=== PATIENT | female | born 1950 | race Caucasian/White ===

== ENCOUNTER 2019-01-30 13:24 | Outpatient (CLI) | payer MEDICARE, SELFPAY ==
--- NOTE | ~2019-01-30 | XR_ITS ---
EXAMINATION: XR hip RT 2V w AP pelvis INDICATION: Right hip and groin pain TECHNIQUE: AP view of the pelvis and three views of the right hip are obtained. COMPARISON: 09/25/2003 FINDINGS: Bone alignment is normal. There is no fracture. Moderate bilateral hip osteoarthritis is pr esent. The soft tissues are unremarkable. Changes of fusion procedure are noted in the lower lumbar s pine. IMPRESSION: 1. Moderate hip osteoarthritis without acute findings. Reviewed, dictated and finalized at location B. CAL SUPPLY TECHNICIAN
== END 2019-01-30 13:25 | disposition home or self-care (01) ==
LOC: ANHIMG 13:42
PROVIDERS: PCP Internal Medicine; Visit Provider Orthopaedic Surgery
DX: M16.11 Unilateral primary osteoarthritis, right hip (principal)
CPT/HCPCS: 73502; 73521

== ENCOUNTER 2019-06-30 10:19 | Outpatient (CLI) | payer MEDICARE, SELFPAY ==
--- NOTE | ~2019-06-30 | XR_ITS ---
EXAMINATION: XR lg joint inject/asp w image DATE: 06/30/2019 11:07 INDICATION: Unilateral primary osteoarthritis of the right hip presenting with right hip pain TECHNIQUE: A time-out was performed to verify the patient's name, date of , and procedure to b e performed. The procedure including the risks, benefits, and alternatives was discussed with the pat ient. Risks discussed included bleeding and infection. The patient understood the risks and agreed to proceed. The skin overlying the right hip joint was prepped and draped in usual sterile fashion. A nesthetic was administered with 1% lidocaine subcutaneously. A 22 G needle was advanced under fluoro scopic guidance into the joint. Injection of 1 mL of Omnipaque 240 confirmed intra-articular positio n of the needle. Subsequently, injectate consisting of 7 mL of a 5:2 mixture of 1% lidocaine:10 mg/m L Kenalog for a total dose of 20 mg Kenalog was instilled. Washout of contrast was seen confirming in tra-articular administration. The needle was removed and the entry site was cleaned and dressed. The re were no immediate complications. Fluoroscopy exposure time was 0.1 minutes. The total number of im ages was 2. FINDINGS: Real-time fluoroscopy demonstrates the needle in the right hip joint. Patient's pain prior to procedure:0/10. Patient's pain following the procedure: 0/10. IMPRESSION: 1. Successful right hip joint injection of local anesthetic and steroid. Reviewed, dictated and finalized at location A.
== END 2019-06-30 10:20 | disposition home or self-care (01) ==
LOC: ANHIMG 10:22
PROVIDERS: PCP Internal Medicine; Visit Provider Orthopaedic Surgery
DX: M16.11 Unilateral primary osteoarthritis, right hip (principal); M25.551 Pain in right hip
CPT/HCPCS: 20610; 77002; J3301; Q9966

== ENCOUNTER 2019-11-14 09:52 | Outpatient (CLI) | payer MEDICARE, SELFPAY ==
[2019-11-15 14:26] LABS: SARS-CoV-2 RNA PCR Positive
== END 2019-11-14 09:53 | disposition home or self-care (01) ==
LOC: CHSLAB 09:55
PROVIDERS: PCP Internal Medicine; Visit Provider Internal Medicine
DX: U07.1 COVID-19 (principal)
CPT/HCPCS: 87635; C9803; U0003

== ENCOUNTER 2020-01-31 13:14 | Outpatient (CLI) | payer MEDICARE, SELFPAY ==
--- NOTE | ~2020-01-31 | MM_ITS ---
EXAMINATION: MM screening [facility] BI w marcus HISTORY: Screening TECHNIQUE: Craniocaudal and mediolateral oblique 3-D tomosynthesis images were obtained and synthetic 2-D images were generated. CAD analysis was submitted and interpreted. COMPARISON: Comparison to multiple prior studies sequentially, with oldest reviewed study dated 12/08. BREAST PARENCHYMAL COMPOSITION: There are scattered areas of fibroglandular density. FINDINGS: There is no evidence of suspicious mass, calcification, or architectural distortion to sugg est malignancy in either breast. There has been no suspicious interval change. IMPRESSION: 1. No mammographic evidence of malignancy. 2. Recommend routine screening mammography in one year. BI-RADS Category 1: Negative Reviewed, dictated and finalized at location A. NSED OPTICIAN
== END 2020-01-31 13:15 | disposition home or self-care (01) ==
LOC: ANHIMG 13:16
PROVIDERS: PCP Internal Medicine; Visit Provider Obstetrics & Gynecology
DX: Z12.31 Encounter for screening mammogram for malignant neoplasm of breast (principal)
CPT/HCPCS: 77063; 77067

== ENCOUNTER 2021-01-31 11:09 | Outpatient (CLI) | payer MEDICARE, SELFPAY ==
--- NOTE | ~2021-01-31 | MM_ITS ---
EXAMINATION: MM screening [facility] BI w marcus HISTORY: Screening mammogram TECHNIQUE: Craniocaudal and mediolateral oblique 3-D tomosynthesis images were obtained and synthetic 2-D images were generated. CAD analysis was submitted and interpreted. COMPARISON: 01/31/2020, 01/16/2019, 01/13/2018 bilateral screening mammogram examinations BREAST PARENCHYMAL COMPOSITION: There are scattered areas of fibroglandular density. FINDINGS: There is no evidence of suspicious mass, calcification, or architectural distortion to sugg est malignancy in either breast. There has been no suspicious interval change. IMPRESSION: 1. No mammographic evidence of malignancy. 2. Recommend routine screening mammography in one year. BI-RADS Category 1: Negative Reviewed, dictated and finalized at location A. ATIONS TEAM LEADER
== END 2021-01-31 11:10 | disposition home or self-care (01) ==
LOC: ANHIMG 11:10
PROVIDERS: PCP Internal Medicine; Visit Provider Obstetrics & Gynecology
DX: Z12.31 Encounter for screening mammogram for malignant neoplasm of breast (principal)
CPT/HCPCS: 77063; 77067

== ENCOUNTER 2021-06-24 15:50 | Outpatient (RCR) | payer MEDICARE, SELFPAY ==
--- NOTE | 2021-06-26 09:27 | PTOPEVAL ---
Thank you for referring Sheridan King to [facility].? The patient is scheduled to be seen for therapy? ____x/week for ___ weeks. Please review, sign, date and return this plan of care JOYCE. I agree with and certify that the following plan of care is medically necessary. Referring Physician Date Admitting Provider: Attending Provider: Roxanna Villaseñor Referring Provider: GRACIELA Outpatient Evaluation Start: 06/24/21 16:00 Freq: Status: Active Protocol: Document 06/24/21 16:00 [facility] (Rec: 06/24/21 16:21 [facility] [id number]) Therapy Assessment Status Assessment Status Assessment Status Evaluation Evaluation Information Problem Diagnosis R hip pain, groin pain, s/p R JIMMIE Onset 05/06/21 Additional Evaluation Detail LEFS = 8% functionally declined Subjective Information patient report she had a R JIMMIE Query Text:As Reported By Patient/ back in 2019. she reports she Family has new hip pain in the groin for about 1 month. she reports no change or new activity. she reports the pain has been less since starting to take tylenol arthritis. she reports she has been having pain in the groin of the R hip with lifting the leg up into flexion. she reports this affects her getting in and out of car, bed, and with steps. Prior Level of Function Comments Additional Prior Level of Function prior to may, no pain or Comments issues since her JIMMIE. Pain Assessment Timing of Pain Assessment Timing of Pain Assessment Assessment Pain Scale Pain Scale Used Numeric (1 - 10) Self Report Pain Assessment Right Groin Reported Pain Level 0 Greatest Pain Intensity 3 Pain Score Pain Score 0: Self Report Interventions Used Interventions Used By Clinicians Activity or ADL's,Education, Exercise,Rest Lower Extremity Range of Motion General Lower Extremity Range of Motion Gross Lower Extremity Range of Motion WFL bilateral hip mobility Comments Lower Extremity Muscle Strength Testing General Lower Extremity Strength Gross Lower Extremity Strength 4+/5 L rectus 4+/5 L sartorius 4/5 R rectus 3+/5 R sartorius 4+/5 R hip abd 4/5 L hip abd 5/5 bilateral
== END 2021-06-26 09:37 | disposition home or self-care (01) ==
LOC: CHSPT 15:50
DX: M25.551 Pain in right hip (principal); M76.891 Other specified enthesopathies of right lower limb, excluding foot
CPT/HCPCS: 97014; 97110; 97140; 97161; G0283

== ENCOUNTER 2022-02-02 14:15 | Outpatient (CLI) | payer MEDICARE, SELFPAY ==
--- NOTE | ~2022-02-02 | MM_ITS ---
EXAMINATION: MM screening [facility] BI w marcus HISTORY: Screening mammogram TECHNIQUE: Craniocaudal and mediolateral oblique 3-D tomosynthesis images were obtained and synthetic 2-D images were generated. CAD analysis was submitted and interpreted. COMPARISON: 01/31/2021, 01/31/2020, 01/16/2019 BREAST PARENCHYMAL COMPOSITION: There are scattered areas of fibroglandular density. FINDINGS: No suspicious mass, calcification, or architectural distortion are identified in either chanel ast to suggest malignancy. There has been no suspicious interval change. IMPRESSION: 1. No mammographic evidence of malignancy. 2. Recommend routine screening mammography in one year. BI-RADS Category 1: Negative Reviewed, dictated and finalized at location A. L MARKETING INTERN
== END 2022-02-02 14:16 | disposition home or self-care (01) ==
PROVIDERS: PCP Internal Medicine; Visit Provider Obstetrics & Gynecology
DX: Z12.31 Encounter for screening mammogram for malignant neoplasm of breast (principal)
CPT/HCPCS: 77063; 77067

== ENCOUNTER 2022-02-25 08:32 | Outpatient (CLI) | payer MEDICARE, SELFPAY ==
--- NOTE | ~2022-02-25 | MR_ITS ---
MRI of the brain Clinical History: Dementia Technique: Axial and sagittal T1-weighted images were acquired. These were followed by axial T2-weigh gordon, diffusion weighted, gradient, and FLAIR images. Findings: There is no acute infarct, intracranial hemorrhage, or mass lesion. There are mild chronic white matter changes in the periventricular white matter bilaterally. Ventricles and subarachnoid spaces are unremarkable. Orbits are unremarkable. Paranasal sinuses and m astoid air cells are clear. Major intracranial flow voids are grossly intact. Sagittal midline structures are intact. IMPRESSION: No intracranial hemorrhage, infarct, or mass lesion. Mild chronic white matter changes, likely mild chronic microvascular ischemic change. Reviewed, dictated and finalized at location M. C PROMOTER IMPRESSION: No intracranial hemorrhage, infarct, or mass lesion. Mild chronic white matter changes, likely mild chronic microvascular ischemic c sofi.
== END 2022-02-25 08:33 | disposition home or self-care (01) ==
PROVIDERS: PCP Internal Medicine; Visit Provider Student in an Organized Health Care Education/Training Program
DX: R41.3 Other amnesia (principal); R93.0 Abnormal findings on diagnostic imaging of skull and head, not elsewhere classified
CPT/HCPCS: 70551

== ENCOUNTER 2022-06-06 20:09 | Emergency (ER) | payer MEDICARE, SELFPAY ==
[2022-06-06 20:13] VITALS: BP 104/66; PULSE 65; RESP 18; TEMP 36.6; O2SAT 97
--- NOTE | 2022-06-06 20:47 | ED.GENADULT ---
HPI - General Adult General Chief complaint: Dental/Oral Stated complaint: dental abscess Time Seen by Provider: 06/06/22 20:25 History of Present Illness HPI narrative: 72 old female presenting for evaluation of a dental abscess associated with her left lateral upper gums. Patient did have follow-up with a dentist in [place] on Wednesday and had an abscess that was packed. Patient states since then she has developed some swelling on the gum that she was concerned about for abscess. Patient is currently not on any antibiotics. Patient does have allergies to Nasonex. Patient reports that she has had some increased pain at the gums and a strange sensation in her cheek. No appreciable facial swelling noted. Patient denies any difficulty breathing or swallowing. No change in voice. No submandibular swelling. Related Data Home Medications Medication Instructions Recorded Confirmed black cohosh 540 mg capsule mg PO PRN 02/09/19 08/16/21 cholecalciferol (vitamin D3) 50 2,000 unit PO DAILY 02/09/19 08/16/21 mcg/drop (2,000 unit/drop) oral drops ywsmrufr-ver-mdfwkj 5 mg-zeaxanth cap PO 03/23/19 08/16/21 1 mg-bilberry 7.5 mg-herbal capsule ([employer] Health Formula) bqvzkruh-tjv-rpjhua 5 mg-zeaxanth cap PO 02/18/22 1 mg-bilberry 7.5 mg-herbal capsule ([employer] Health Formula) potassium gluconate 600 mg (99 mg) 600 mg PO DAILY 02/18/22 tablet Allergies Allergy/AdvReac Type Severity Reaction Status Date / Time mercury (elemental) Allergy Mild Unknown Verified 06/06/22 20:10 mometasone furoate Allergy Mild Unknown Verified 06/06/22 20:10 Review of Systems Review of Systems: All systems reviewed & are unremarkable except as noted in HPI and below PMFSH Past Medical History Medical History Cataract History of broken nose (~2018) Right thyroid nodule Torn tendon (~2008) left leg 2009 Surgical History Surgical History H/O bladder repair surgery (~2002) H/O foot surgery (~1997) H/O tubal ligation (~1977) History of appendectomy (~1965) History of cholecystectomy (~2007) History of hip replacement, total History of lumbar fusion (~2018) Hx of tonsillectomy (~1961) Family History Family History Sibling Family history of arthritis Family history of lymphoma Mother Patient's mother is Father Patient's father is Social History Social History (Updated 02/18/22 @ 13:21 by Radha Erickson MA) Smoking status: Never smoker Second hand tobacco smoke exposure: No Alcohol intake: current Alcohol use details: occassionally Substance use: never Lack of Transportation: No Lack of Food: Never True Current Housing: I Have Housing Concerned About Future Housing: No Difficulty Paying Gas/Electric Bills: No Difficulty Paying for Meds: No Currently Unemployed: No Education: High School Diploma/GED Difficulty w/ Childcare or Family Care: No Exam Narrative: APPEARANCE: Well appearing, no pain, no distress, well-nourished. HEAD: normocephalic, atraumatic. EYES: PERRLA/EOMI, conjunctivae clear. NOSE: Normal no drainage Mouth: Abscess on gums associated with the upper left lateral gums THROAT: Pharynx clear, no exudate. NECK: Supple. No adenopathy, no masses. RESPIRATORY: Airway patent, respirations nonlabored. Clear to auscultation bilaterally, no rales, rhonchi, wheezing. CARDIOVASCULAR: Regular rate and rhythm without murmurs rubs or gallops. ABDOMINAL: Soft, nontender, nondistended, normal bowel sounds MUSCULOSKELETAL: Moves all extremities. Strength/ROM intact, No edema, No calf tenderness. NEURO: Alert. Cranial nerves II through XII intact. Grossly intact SKIN: Warm, dry. Normal Color Course Course Emergency Course: 68-year-old female presenting for evaluation of a
[2022-06-06] MEDS: AMOXICILLIN/CLAVULANATE K 875-125 MG TAB 1 TABLET PO (20:53)
== END 2022-06-06 22:01 | disposition home or self-care (01) ==
PROVIDERS: Emergency Provider Emergency Medicine; PCP Internal Medicine
DX: K04.7 Periapical abscess without sinus (principal)
CPT/HCPCS: 41800; 99283; A9270

== ENCOUNTER 2023-01-21 01:55 | Day surgery (SDC) | payer MEDICARE, SELFPAY ==
[2023-01-12 08:47] VITALS: BMI 31.8
--- NOTE | 2023-01-19 10:29 | SUR.PREOP ---
Patient called regarding upcoming procedure. Reviewed preop instructions, appointment times, and procedure prep.
[2023-01-21] MEDS: LACTATED RINGERS 1,000 ML 150 ML IV CONT (10:29)
[2023-01-21 10:36] VITALS: BP 153/62; PULSE 68; RESP 16; TEMP 36.5; O2SAT 99
--- NOTE | 2023-01-21 10:42 | WPDANESEPPF ---
Anes - Initial Pre Proc Eval Procedure: Operation Date: 01/21/23 11:30 Proposed Procedures p Colonoscopy - Christo Magdaleno MD Date/Time: 01/21/23 10:42 Surgeon: Christo Magdaleno MD Pre Op Diagnosis: hx of colon polyps, rectal bleeding Patient Data Age: 72 Gender: F Height: 1.63 m Weight: 83.1 kg Last Vital Signs Temp 97.7 F 01/21/23 10:36 Pulse 68 01/21/23 10:36 Resp 16 01/21/23 10:36 BP 153/62 H 01/21/23 10:36 Pulse Ox 99 01/21/23 10:36 O2 Del Method Room Air 01/21/23 10:36 Allergies Allergy/AdvReac Type Severity Reaction Status Date / Time mercury (elemental) Allergy Mild Unknown Verified 01/21/23 10:32 mometasone furoate Allergy Mild Unknown Verified 01/21/23 10:32 Home Medications Medication Instructions Recorded Confirmed Type oteuwdjr-xzk-cugzmf 5 mg-zeaxanth 1 cap PO DAILY 03/23/19 01/21/23 History 1 mg-bilberry 7.5 mg-herbal capsule ([employer] Formula) magnesium oxide 400 mg (241.3 mg 400 mg PO BID #180 tabs 08/08/19 01/21/23 Rx magnesium) tablet (MagOx) potassium gluconate 600 mg (99 mg) 600 mg PO DAILY 02/18/22 01/21/23 History tablet citalopram 20 mg tablet 20 mg PO DAILY #90 tabs 09/10/22 01/21/23 Rx omeprazole 20 mg capsule,delayed 20 mg PO DAILY #90 caps 01/21/23 01/21/23 Rx release Patient hx anesthesia problems: none Family hx anesthesia problems: none Results Review: All pre-operative results and documents have been reviewed as part of the pre-operative evaluation. [facility] Past Medical History Medical History Cataract History of broken nose (~2018) Hyperglycemia Right thyroid nodule Torn tendon (~2008) left leg 2009 Surgical History Surgical History H/O bladder repair surgery (~2002) H/O foot surgery (~1997) H/O tubal ligation (~1977) History of appendectomy (~1965) History of cholecystectomy (~2006) History of hip replacement, total History of lumbar fusion (~2018) Hx of tonsillectomy (~1960) Family History Family History Sibling Family history of arthritis Family history of lymphoma Mother Patient's mother is Father Patient's father is Social History Social History Smoking status: Never smoker Second hand tobacco smoke exposure: No Alcohol intake: current Drinks per week: 1 Alcohol use details: occassionally Substance use: never Substance use type: does not use Lack of Transportation: No Lack of Food: Never True Current Housing: I Have Housing Concerned About Future Housing: No Difficulty Paying Gas/Electric Bills: No Difficulty Paying for Meds: No Currently Unemployed: No Education: High School Diploma/GED Difficulty w/ Childcare or Family Care: No Living arrangements: with family Spiritual care concerns: No Anes - Eval Final PreProcedure Day of Procedure 01/21/23 10:42 Patient weight: obese Heart: regular rate and rhythm Lungs: clear to auscultation Airway: Mallampati scale class II Neurological: alert and oriented Last oral intake: >/= 8 hours ASA classification: III Emergent: no Anesthetic plan: proceed Anesthesia type and monitoring: general GIVS and standard monitoring Results Review: All pre-operative results and documents have been reviewed as part of the pre-operative evaluation. Informed Consent: The patient's anesthetic plan and its attendant risks and benefits were discussed with the patient/family/POA. Questions were solicited and answers provided to the satisfaction of the patient/family/POA.
--- NOTE | 2023-01-21 10:42 | WPDHPUPDATE1 ---
History and Physical Update Update Date/Time: 01/21/23 10:42 History and Physical has been reviewed, including an updated exam of the patient. There are NO changes in the patient's condition. Risks, benefits, and alternatives have been discussed and questions answered. Patient agrees to proceed with procedure.
[2023-01-21 11:04] VITALS: BP 128/64; PULSE 73; RESP 15; O2SAT 96
[2023-01-21 11:14] VITALS: BP 120/60; PULSE 74; RESP 16; O2SAT 98
[2023-01-21 11:24] VITALS: BP 128/67; PULSE 63; RESP 17; O2SAT 100
== END 2023-01-21 11:33 | disposition home or self-care (01) ==
PROVIDERS: PCP Internal Medicine; Visit Provider Internal Medicine Gastroenterology
PROC: 0DJD8ZZ Inspection of Lower Intestinal Tract, Via Natural or Artificial Opening Endoscopic (ICD-10-PCS; CPT 45378; principal; 2023-01-21 11:30)
DX: K63.5 Polyp of colon (principal); K57.30 Diverticulosis of large intestine without perforation or abscess without bleeding; K64.8 Other hemorrhoids; E66.9 Obesity, unspecified; Z68.31 Body mass index [BMI] 31.0-31.9, adult; F10.90 Alcohol use, unspecified, uncomplicated; Z79.899 Other long term (current) drug therapy; Z83.719 Family history of colon polyps, unspecified
CPT/HCPCS: 45385; 88305; J2704; J7120

== ENCOUNTER 2023-02-03 10:32 | Outpatient (CLI) | payer MEDICARE, SELFPAY ==
--- NOTE | ~2023-02-03 | MM_ITS ---
EXAMINATION: MM screening [facility] BI w marcus HISTORY: Screening mammogram TECHNIQUE: Craniocaudal and mediolateral oblique 3-D tomosynthesis images were obtained and synthetic 2-D images were generated. CAD analysis was submitted and interpreted. COMPARISON: 02/02/2022, 01/31/2021, 01/31/2020 bilateral screening mammogram examinations BREAST PARENCHYMAL COMPOSITION: The breasts are almost entirely fatty. FINDINGS: There is no evidence of suspicious mass, calcification, or architectural distortion to sugg est malignancy in either breast. There has been no suspicious interval change. IMPRESSION: 1. No mammographic evidence of malignancy. 2. Recommend routine screening mammography in one year. BI-RADS Category 1: Negative Reviewed, dictated and finalized at location A. SSMENT COORDINATOR
== END 2023-02-03 10:33 | disposition home or self-care (01) ==
LOC: CHSIMG 10:33
PROVIDERS: PCP Internal Medicine; Visit Provider Obstetrics & Gynecology
DX: Z12.31 Encounter for screening mammogram for malignant neoplasm of breast (principal)
CPT/HCPCS: 77063; 77067

== ENCOUNTER 2023-07-24 09:05 | Emergency (ER) | payer MEDICARE, SELFPAY ==
--- NOTE | ~2023-07-24 | US_ITS ---
EXAMINATION: US venous doppler [facility] DATE: 07/24/2023 10:10 INDICATION: Left lower limb swelling. TECHNIQUE: Grayscale ultrasound images without and with compression and Doppler ultrasound images of the left lower extremity veins were obtained. COMPARISON: None. FINDINGS: There is thrombus in the left common femoral vein, profunda (deep) femoral vein, femoral vein, poplit eal vein, peroneal veins, posterior tibial veins, and greater saphenous vein. IMPRESSION: 1. Extensive acute deep vein thrombosis involving left lower limb. Reviewed, dictated and finalized at location A.
[2023-07-24 09:20] VITALS: BP 124/65; PULSE 67; RESP 18; TEMP 36.4; O2SAT 97
[2023-07-24 09:56] LABS: Basophils Percent Auto 0.5 % (0.2-1.2); Eosinophils Absolute Auto 0.2 K/mm3 (0-0.3); Eosinophils Percent Auto 1.8 % (0-4.4); Hematocrit 36.7 % (37.0-47.0); Hemoglobin 12.1 g/dL (12.0-15.0); Immature Granulocyte Absolute 0.03 K/mm3 (0.00-0.031); Immature Granulocyte Percent A 0.3 % (0-0.5); Lymphocytes Absolute Auto 1.14 K/mm3 (0.9-3.2); Lymphocytes Percent Auto 12.9 % (18.3-44.2); Mean Corpuscular Hemoglobin 30.3 pg (26-34); Mean Corpuscular Volume 91.8 fl (80-100); Mean Platelet Volume 10.4 fl (7.4-10.4); Monocytes Percent Auto 11.6 % (2.6-8.5); Neutrophils Absolute Auto 6.4 K/mm3 (1.3-6.7); Neutrophils Percent Auto 72.9 % (45.5-73.1); Platelet Count Result 173 k/mm3 (150-375); Red Cell Distribution Width 12.7 % (11.5-14.5); White Blood Count 8.8 K/mm3 (4.5-10.0)
--- NOTE | 2023-07-24 09:58 | PC.NURSE ---
US sound at bedside.
[2023-07-24 10:01] VITALS: BP 127/65; PULSE 74; RESP 18; TEMP 36.6; O2SAT 97
--- NOTE | 2023-07-24 10:03 | ED.EXTPRO ---
HPI - Extremity Problem General Chief complaint: Extremity Problem,Nontraumatic Stated complaint: left leg swelling Time Seen by Provider: 07/24/23 09:12 History of Present Illness HPI Narrative: This is a 73-year-old female, with history of diabetes, who presents emergency department complaining of left leg swelling. The patient states she woke this morning and noticed swelling of the left leg. She denies any preceding symptoms and states yesterday the leg appeared normal. She denies recent surgeries, recent change in medications, recent travel or known history of blood clots. She denies history intracranial hemorrhage, surgery or mass. She history of hemorrhage from any known site. She denies chest pain, shortness of breath, loss of consciousness and has no other complaints at this time. Related Data Home Medications Medication Instructions Recorded Confirmed uxnfunce-urj-rkdobc 5 mg-zeaxanth 1 cap PO DAILY 03/23/19 05/26/23 1 mg-bilberry 7.5 mg-herbal capsule ([employer] Formula) potassium gluconate 600 mg (99 mg) 600 mg PO DAILY 02/18/22 05/26/23 tablet Allergies Allergy/AdvReac Type Severity Reaction Status Date / Time mercury (elemental) Allergy Mild Unknown Verified 07/24/23 09:26 mometasone furoate Allergy Mild Unknown Verified 07/24/23 09:26 Review of Systems Review of Systems: All systems reviewed & are unremarkable except as noted in HPI and below PMFSH Past Medical History Medical History Cataract History of broken nose (~2018) Hyperglycemia Right thyroid nodule Torn tendon (~2008) left leg 2008 Surgical History Surgical History H/O bladder repair surgery (~2002) H/O foot surgery (~1997) H/O tubal ligation (~1977) History of appendectomy (~1964) History of cholecystectomy (~2006) History of hip replacement, total History of lumbar fusion (~2017) Hx of tonsillectomy (~1960) Family History Family History Sibling Family history of arthritis Family history of lymphoma Mother Patient's mother is Father Patient's father is Social History Social History Smoking status: Never smoker Second hand tobacco smoke exposure: No Alcohol intake: current Drinks per week: 1 Alcohol use details: occassionally Substance use: never Substance use type: does not use Lack of Transportation: No Lack of Food: Never True Current Housing: I Have Housing Concerned About Future Housing: No Difficulty Paying Gas/Electric Bills: No Difficulty Paying for Meds: No Currently Unemployed: No Education: High School Diploma/GED Difficulty w/ Childcare or Family Care: No Living arrangements: with family Spiritual care concerns: No Exam Narrative: GENERAL: Well-developed, well-nourished, and in no acute distress. HEAD: Normocephalic, atraumatic. EYES: PERRLA and EOMI. CHEST: Clear to auscultation. No respiratory distress. No wheezes rales or rhonchi HEART: Regular rate and rhythm. No murmur heard. Normal peripheral pulses. ABDOMEN: Soft, nontender, nondistended, normal active bowel sounds. EXTREMITIES: Left lower extremity edema, 1+ extending to the thigh. No ecchymosis or erythema of the left leg noted. No noted edema on the right. Normal range of motion. SKIN: Warm, dry, no rash. NEURO: Alert and oriented x3. No focal deficit. Moving all 4 limbs spontaneously PSYCH: Normal mood and affect. Course Course Emergency Course: 10:30 - Ultrasound demonstrates DVT extending to the femoral vein. The patient's exam is not concerning for phlegmasia cerulea dolens. CBC unremarkable. INR within normal limits. Chemistries within normal limits. Will start Eliquis and discharged recommendation for primary care
[2023-07-24 10:07] LABS: Anion Gap 7 mmol/L (4-12); Blood Urea Nitrogen 16 mg/dL (7-17); Calcium 8.6 mg/dL (8.4-10.2); Carbon Dioxide 26 mmol/L (22-30); Chloride 103 mmol/L (98-107); Estimated CRCL calculation 63 ml/min; Estimated Glomerular Filt Rate > 60; Glucose 241 mg/dL (65-110); Potassium 3.8 mmol/L (3.4-5.0); Sodium 136 mmol/L (137-145)
[2023-07-24 10:12] LABS: Partial Thromboplastin Time 22.7 Seconds (22.3-36.8); Prothrombin Time 14.1 Seconds (11.1-14.7)
[2023-07-24 10:46] VITALS: BP 134/67; PULSE 71; RESP 16; TEMP 36.6; O2SAT 96
[2023-07-24] MEDS: APIXABAN 5 MG TABLET 10 MG PO (10:59)
[2023-07-24 11:04] VITALS: BP 134/67; PULSE 72; RESP 16; O2SAT 96
== END 2023-07-24 11:04 | disposition home or self-care (01) ==
PROVIDERS: Emergency Provider Preventive Medicine Aerospace Medicine; PCP Internal Medicine
DX: I82.412 Acute embolism and thrombosis of left femoral vein (principal); I82.432 Acute embolism and thrombosis of left popliteal vein; I82.452 Acute embolism and thrombosis of left peroneal vein; I82.442 Acute embolism and thrombosis of left tibial vein; E04.1 Nontoxic single thyroid nodule
CPT/HCPCS: 36415; 80048; 85025; 85610; 85730; 93971; 99284; A9270

== ENCOUNTER 2023-09-22 21:06 | Emergency (ER) | payer MEDICARE, SELFPAY ==
--- NOTE | ~2023-09-22 | CT_ITS ---
Noncontrast CT scan of the lumbar spine CLINICAL HISTORY: Back pain, status post fall TECHNIQUE: Axial noncontrast imaging of the lumbar spine was performed. Sagittal and coronal reformat gordon images were constructed. Dose reduction technique was used on this scan by utilizing automated ex posure control and iterative reconstruction technique. The dose-length product (DLP) was 980.63 mGy-c m. FINDINGS: There is posterior and interbody fusion from L4 to L5, which is fusion cage and posterior r ods and transpedicular screws. No acute fracture or subluxation seen. Vertebral bodies maintain ruchi l height and alignment. There is probable L4 laminectomy. At L1-L2, there is minimal disc bulge and minimal facet arthropathy. No central canal stenosis or def inite neural foraminal narrowing. At L2-L3, there is mild disc bulge and mild facet arthropathy. No definite central canal stenosis or neural foraminal narrowing. L3-L4, there is mild disc bulge and moderate facet arthropathy. No definite central canal stenosis or neural foraminal narrowing. At L4-L5, there is no definite canal stenosis. Possible mild bilateral neural foraminal narrowing. At L5-S1, there is no disc bulge or herniation. There is moderate facet arthropathy. No central canal stenosis or definite neural foraminal narrowing. Paravertebral soft tissues are unremarkable. There is partially imaged probable patchy groundglass op acity at the right lung base. Impression: No acute fracture or subluxation. Posterior fusion changes at L4-L5. Mild degenerative spondylosis, as above. Partially imaged probable patchy groundglass opacity right lung base. Correlate for pneumonia. Reviewed, dictated and finalized at [facility]. Impression: No acute fracture or subluxation. Posterior fusion changes at L4-L5. Mild degenerative spondylosis, as above. Partially imaged probable patchy groundglass opacity right lung base. Correlate for pneumonia.
--- NOTE | ~2023-09-22 | CT_ITS ---
Non-contrast CT scan of the Pelvis Clinical indication: Pain Technique: 2.5 mm axial scans were obtained through the pelvis without intravenous or oral contrast. Dose reduction technique was used on this scan by utilizing automated exposure control and iterative reconstruction technique. The dose-length product (DLP) was 709.83 mGy-cm. Findings: There is streak artifact in the pelvis from bilateral hip arthroplasty. No mass lesion or l ymphadenopathy evident. Visualized urinary bladder unremarkable. Patient appears to be post hysterect angel. No adnexal mass seen. No ascites. Visualized bowel loops are unremarkable, aside from mild diver ticulosis. No acute fracture or dislocation seen. No hardware complication regarding the hip arthroplasties is i dentified. No joint effusion identified. SI joints are intact with minimal degenerative change. Visua lized musculature about the pelvis is unremarkable. No soft tissue mass or fluid collection seen. Impression: No acute abnormality identified. Reviewed, dictated and finalized at [facility]. Impression: No acute abnormality identified.
[2023-09-22 21:11] VITALS: BP 130/57; PULSE 76; RESP 15; TEMP 36.3; O2SAT 97
[2023-09-22 22:53] VITALS: BP 126/58; PULSE 66; RESP 17; O2SAT 98
[2023-09-22] MEDS: HYDROcodone/acetaminophen (*CRX) 5-325 MG TABLET 1 TAB PO (23:08)
[2023-09-22] MEDS: ORPHENADRINE CITRATE 100 MG TABLET.ER PO (23:09)
[2023-09-23 00:01] VITALS: BP 123/59; PULSE 61; RESP 18; O2SAT 98
--- NOTE | 2023-09-23 01:34 | ED.GENADULT ---
HPI - General Adult General Chief complaint: Fall Stated complaint: fall, hip pain Time Seen by Provider: 09/22/23 22:55 History of Present Illness HPI narrative: Patient is a 73-year-old female presents emergency department with chief complaint of low back pain and pelvis pain status post fall. Patient reports she tripped and fell landed her buttock reports that she is having some intermittent sharp pain in her sciatic area. The patient denies bowel or bladder dysfunction Related Data Home Medications Medication Instructions Recorded Confirmed [id number]-[id number] 5 mg-zeaxanth 1 cap PO DAILY 03/23/19 08/03/23 1 mg-bilberry 7.5 mg-herbal capsule ([employer] Formula) potassium gluconate 600 mg (99 mg) 600 mg PO DAILY 02/18/22 08/03/23 tablet Allergies Allergy/AdvReac Type Severity Reaction Status Date / Time mercury (elemental) Allergy Mild Unknown Verified 09/22/23 22:54 mometasone furoate Allergy Mild Unknown Verified 09/22/23 22:54 Review of Systems Review of Systems: A 10 system review of systems was completed on the patient and is negative except for what is stated in the HPI. Nursing and ancillary documentation was reviewed. [facility] Past Medical History Medical History Cataract History of broken nose (~2018) Hyperglycemia Right thyroid nodule Torn tendon (~2008) left leg 2009 Surgical History Surgical History H/O bladder repair surgery (~2002) H/O foot surgery (~1997) H/O tubal ligation (~1977) History of appendectomy (~1964) History of cholecystectomy (~2006) History of hip replacement, total History of lumbar fusion (~2017) Hx of tonsillectomy (~1960) Family History Family History Sibling Family history of arthritis Family history of lymphoma Mother Patient's mother is Father Patient's father is Social History Social History Smoking status: Never smoker Second hand tobacco smoke exposure: No Alcohol intake: current Drinks per week: 1 Alcohol use details: occassionally Substance use: never Substance use type: does not use Lack of Transportation: No Lack of Food: Never True Current Housing: I Have Housing Concerned About Future Housing: No Difficulty Paying Gas/Electric Bills: No Difficulty Paying for Meds: No Currently Unemployed: No Education: High School Diploma/GED Difficulty w/ Childcare or Family Care: No Living arrangements: with family Spiritual care concerns: No Exam Narrative: GENERAL: Well-appearing, well-nourished, and in no acute distress. HEAD: Normocephalic, atraumatic. EYES: PERRLA and EOMI. ENT: Nares clear, no rhinorrhea or epistaxis. Mucous membranes moist. NECK: Supple. CHEST: Clear to auscultation. No respiratory distress. HEART: Regular rate and rhythm. No murmur heard. Normal peripheral pulses. ABDOMEN: Soft, nontender, nondistended, normal active bowel sounds. EXTREMITIES: Normal range of motion. No edema. SKIN: Warm, dry, no rash. NEURO: No focal deficits. Alert and oriented x3. PSYCH: Normal mood and affect. Course Vital Signs Vital signs: Vital Signs Temperature 36.3 C L 09/22/23 21:11 Pulse Rate 76 09/22/23 21:11 Respiratory Rate 15 09/22/23 21:11 Blood Pressure 130/57 L 09/22/23 21:11 Pulse Oximetry 97 09/22/23 21:11 Oxygen Delivery Room Air 09/22/23 21:11 Temperature 36.3 C L 09/22/23 21:11 Pulse Rate 61 09/23/23 00:01 Respiratory Rate 18 09/23/23 00:01 Blood Pressure 123/59 L 09/23/23 00:01 Pulse Oximetry 98 09/23/23 00:01 Oxygen Delivery Room Air 09/22/23 21:11 Medical Decision Making MDM Narrative Medical decision making narrative: Differ
== END 2023-09-23 02:00 | disposition home or self-care (01) ==
PROVIDERS: Emergency Provider Emergency Medicine; PCP Internal Medicine
DX: S39.012A Strain of muscle, fascia and tendon of lower back, initial encounter (principal); S30.0XXA Contusion of lower back and pelvis, initial encounter; Z96.649 Presence of unspecified artificial hip joint; Z98.1 Arthrodesis status; Z90.49 Acquired absence of other specified parts of digestive tract; Z79.84 Long term (current) use of oral hypoglycemic drugs; Z79.01 Long term (current) use of anticoagulants; Z79.899 Other long term (current) drug therapy; W01.0XXA Fall on same level from slipping, tripping and stumbling without subsequent striking against object, initial encounter
CPT/HCPCS: 72131; 72192; 99284; A9270

== ENCOUNTER 2023-12-29 12:28 | Outpatient (CLI) | payer MEDICARE, SELFPAY ==
--- NOTE | ~2023-12-29 | US_ITS ---
EXAMINATION:US venous doppler LE LT INDICATION:Left lower extremity deep venous thrombosis TECHNIQUE: Multiple grayscale, color flow and Doppler images of the left lower extremity deep venous systems were obtained and reviewed. COMPARISON:Ultrasound dated 07/24/2023 FINDINGS: There is persistent deep venous thrombosis of the left common and profunda femoral veins. T he remainder of the left lower extremity veins are patent. IMPRESSION: 1: Chronic deep venous thrombosis of the left common femoral and profunda femoral veins. Reviewed, dictated and finalized at location B. IMPRESSION: 1: Chronic deep venous thrombosis of the left common femoral and profunda femor al veins.
== END 2023-12-29 12:29 | disposition home or self-care (01) ==
PROVIDERS: PCP Internal Medicine; Visit Provider Internal Medicine
DX: I82.512 Chronic embolism and thrombosis of left femoral vein (principal); I82.592 Chronic embolism and thrombosis of other specified deep vein of left lower extremity
CPT/HCPCS: 93971

== ENCOUNTER 2024-02-06 16:16 | Emergency (ER) | payer MEDICARE, SELFPAY ==
[2024-02-06 16:38] VITALS: BP 143/70; PULSE 66; RESP 18; TEMP 36.6; O2SAT 99
--- NOTE | 2024-02-06 20:03 | ED_ITS ---
HPI - Skin/Abscess/Foreign Bdy General Chief complaint: Skin/Abscess/Foreign Body Stated complaint: infection in nose Time Seen by Provider: 02/06/24 19:58 History of Present Illness HPI narrative: 73-year-old female with history of type 2 diabetes, GORDO, hyperlipidemia, GERD presents to emergency department for a red and painful nose that developed 4 days ago. Patient states the area has gotten more tender so she went to urgent care and was prescribed doxycycline. She has visor to come to the ED for further evaluation. She states she feels the pain now in her teeth and in her sinuses. Denies she denies fever, nausea vomiting, nasal congestion, pain with EOMs. Related Data Home Medications Medication Instructions Recorded Confirmed cqetmrah-dpi-ndbqfz 5 mg-zeaxanth 1 cap PO DAILY 03/23/19 01/05/24 1 mg-bilberry 7.5 mg-herbal capsule ([employer] Formula) potassium gluconate 600 mg (99 mg) 600 mg PO DAILY 02/18/22 01/05/24 tablet atorvastatin 10 mg tablet mg PO 01/05/24 01/05/24 Allergies Allergy/AdvReac Type Severity Reaction Status Date / Time mercury (elemental) AdvReac Intermediate Redness of Verified 01/05/24 08:01 Skin mometasone furoate AdvReac Intermediate Migraine Verified 01/05/24 08:01 Review of Systems Review of Systems: All systems reviewed & are unremarkable except as noted in HPI and below PMFSH Past Medical History Medical History Cataract History of broken nose (~2018) Hyperglycemia Right thyroid nodule Torn tendon (~2008) left leg 2009 Surgical History Surgical History H/O bladder repair surgery (~2002) H/O foot surgery (~1997) H/O tubal ligation (~1977) History of appendectomy (~1964) History of cholecystectomy (~2006) History of hip replacement, total History of lumbar fusion (~2017) Hx of tonsillectomy (~1960) Family History Family History Sibling Family history of arthritis Family history of lymphoma Mother No problems noted. Father No problems noted. Social History Social History Smoking status: Never smoker Second hand tobacco smoke exposure: No Alcohol intake: current Drinks per week: 1 Alcohol use details: occassionally Substance use: never Substance use type: does not use Do You Feel Safe in your Home?: Yes Lack of Transportation: No Lack of Food: Never True Current Housing: I Have Housing Concerned About Future Housing: No Difficulty Paying Gas/Electric Bills: No Difficulty Paying for Meds: No Currently Unemployed: No Education: High School Diploma/GED Difficulty w/ Childcare or Family Care: No Living arrangements: with family Occupation/Education: retired Additional occupation/education comments: [employer] Gender identity (if verbalized by the patient): Female Spiritual care concerns: No Exam Narrative: GENERAL: Well-appearing, well-nourished, and in no acute distress. HEAD: Normocephalic, atraumatic. EYES: PERRLA and EOMI. ENT: Tip of nose with 1cm blanching erythema and tenderness to palpation. No fluctuance or induration. There is a punctum to the medial superior distal aspect of the inside of the nare. No active drainage. No open wounds or abscess, no necrosis or vesicles. No tenderness to maxillary or frontal sinuses. No dental pain or trauma, no dental caries. Fillings throughout molars. NECK: Supple. CHEST: Clear to auscultation. No respiratory distress. HEART: Regular rate and rhythm. No murmur heard. Normal peripheral pulses. EXTREMITIES: Normal range of motion. No edema. SKIN: Warm, dry, no rash. NEURO: No focal deficits. Alert and oriented x3 Course Vital Signs Vital signs: Vital Signs Temperature 97.8 F 02/06/24 16:38 Pulse Rate 66 02/06/24 16:38 Respiratory Rate 18 02/06/24 16:38 Blood Pressure 143/70 H 02/06/24 16:38 Pulse Oximetry 99 02/06/24 16:38 Oxygen Delivery Room Air 02/06/24 16:38 Temperature 97.8 F 02/06/24 16:38 Pulse Rate 66 02/06/24 16:38 Respiratory Rate 18 02/06/24 16:38 Blood Pressure 143/70 H 02/06/24 16:38 Pulse Oximetry 99 02/06/24 16:38 Oxygen Delivery Room Air 02/06/24 16:38 MDM - Skin/Abscess/Foreign Bdy MDM Narrative Medical decision making narrative: 73-year-old female presents to the emergency department for redness and pain to the tip of her nose for 4 days. Patient was evaluated at urgent care and prescribed doxycycline and mupirocin was sent to the ED for further evaluation. Vitals are stable. She is afebrile nontoxic appearing. Exam is significant for the above. Suspect a focal area of cellulitis or clogged tear follicle. there is no evidence of dental infection on exam. Erythema does not extend into o rbits. No concerning findings for meningitis or Orbital cellulitis. Advised her to continue course of doxycycline and follow-up closely with PCP. Strict ED return precautions discussed. She is agreeable with the plan and verbalized understanding. Discharged in stable condition. Discharge Plan Discharge Clinical Impression: Cellulitis Qualifiers: Site of cellulitis: face Qualified Code(s): L03.211 - Cellulitis of face Patient Disposition: Home, Self-Care Condition: Stable Instructions: Antibiotic Form, Cellulitis (ED) Additional Instructions: You were evaluated in the emergency department for redness and pain to the tip of your nose. Exam consistent with a focal skin infection. Please continue taking the antibiotics as directed follow-up with your primary care provider. Return to the emergency department if the had redness spreads, develop a fever or other concerning symptoms. Prescriptions: No Action potassium gluconate 600 mg (99 mg) tablet 600 mg PO DAILY [employer] Formula 5-1-7.5 mg capsule 1 cap PO DAILY atorvastatin 10 mg tablet PO citalopram 20 mg tablet 20 mg PO DAILY Qty: 90 3RF omeprazole 20 mg capsule,delayed release(DR/EC) 20 mg PO DAILY Qty: 90 3RF metformin 500 mg tablet 500 mg PO BIDWMEAL Qty: 60 6RF Eliquis 5 mg tablet 5 mg PO BID 90 Days Qty: 180 0RF Follow-up/Referrals: Ketan Lei DO [Primary Care Provider] -
[2024-02-06 20:23] VITALS: BP 157/78; PULSE 60; RESP 16; O2SAT 99
[2024-02-06 20:50] VITALS: BP 135/80; PULSE 75; RESP 16; O2SAT 98
== END 2024-02-06 20:50 | disposition home or self-care (01) ==
PROVIDERS: Emergency Provider Physician Assistant; PCP Internal Medicine
DX: L03.211 Cellulitis of face (principal); E11.9 Type 2 diabetes mellitus without complications; E78.5 Hyperlipidemia, unspecified; G47.30 Sleep apnea, unspecified; K21.9 Gastro-esophageal reflux disease without esophagitis; Z96.649 Presence of unspecified artificial hip joint
CPT/HCPCS: 99281

== ENCOUNTER 2024-02-07 12:47 | Outpatient (CLI) | payer MEDICARE, SELFPAY ==
--- NOTE | ~2024-02-07 | MM_ITS ---
EXAMINATION: MM screening reyes BI w marcus HISTORY: Screening TECHNIQUE: Craniocaudal and mediolateral oblique 3-D tomosynthesis images were obtained and synthetic 2-D images were generated. CAD analysis was submitted and interpreted. COMPARISON: Comparison to multiple prior studies sequentially, with oldest reviewed study dated 10/2017. BREAST PARENCHYMAL COMPOSITION: Not dense: There are scattered areas of fibroglandular density. FINDINGS: There is no evidence of suspicious mass, calcification, or architectural distortion to sugg est malignancy in either breast. There has been no suspicious interval change. IMPRESSION: 1. No mammographic evidence of malignancy. 2. Recommend routine screening mammography in one year. BI-RADS Category 1: Negative Reviewed, dictated and finalized at location B. [employer]
== END 2024-02-07 12:48 | disposition home or self-care (01) ==
LOC: ANHIMG 12:50
PROVIDERS: PCP Internal Medicine; Visit Provider Internal Medicine
DX: Z12.31 Encounter for screening mammogram for malignant neoplasm of breast (principal)
CPT/HCPCS: 77063; 77067

== ENCOUNTER 2024-04-20 13:53 | Emergency (ER) | payer OTHER, SELFPAY ==
--- OUTSIDE RECORDS SUMMARY | 2024-04-20 13:56 | XMS_ITS | Continuity of Care Document ---
Author Organization [facility] Address [address] [place] [address] Phone Care Team Providers Care Hand Stripper Name Role Phone Pancho Doe MD Unavailable Unavailable Advance Directives Directive Yes / No Effective Date File Name No Information Encounters Encounter Description Practice Location Reason(s) For Visit Diagnoses Date Provider Providers Copied on Encounter [place], [address], [place], [place], [id number], tel:[phone] [facility] No Information Nader Deleon. [address], [place], [place], [id number], [place]. tel:[phone] Referring Provider: Fadi Persaud, [address], [place], [address]. tel:[phone] Family History Family Member Type Diagnosis Age At Onset No Information Payers Payer name Insurance type Covered alliance party ID Authoriza tion(s) [employer] OPEN ACCESS HMO PPO POS CI [id number] Social History Type Description Quantity Date Captured [...]
--- OUTSIDE RECORDS SUMMARY | 2024-04-20 13:56 | XMS_ITS | Clinical Summary ---
Author Organization [facility] Building [address] Address [address] [place] [address] Care Team Providers Care Supermarket Manager Name Role Phone Peter Patrick MD Primary Care Provider [phone] Daniel Tariq MD Unavailable [phone] Sophy Steven Unavailable [phone] Allergies Active Allergy Reactions Criticality Noted Date Comments Mercury Rash Medium 12/19/2019 Mometasone Headache Low 10/31/2019 Medications citalopram (CeleXA) 20 mg tablet Take 1 tablet (20 mg total) by mouth daily 0 Active omeprazole (PriLOSEC) 20 mg capsule Take 1 capsule (20 mg total) by mouth daily 0 Active multivitamin capsule Take 1 capsule by mouth daily Active cholecalciferol (VITAMIN D-3) 1,000 unit capsule 0 Active Eliquis 5 mg tablet Take 1 tablet (5 mg total) by mouth 2 (two) times a day 4 Active metFORMIN (GLUCOPHAGE) 500 mg tablet Take 1 tablet (500 mg total) by mouth 2 (two) times a day with meals 4 Active potassium gluconate 600 mg (99 mg) tablet Take by mouth 650 mg Active OneTouch Delica Plus Lancet 30 gauge miscIndications: Type 2 diabetes mellitus with hyperglycemia, without long-term current use of insulin (HCC) 1-2 x daily 100 each 3 4 Active OneTouch Verio test strips stripIndications :Type 2 diabetes mellitus with hyperglycemia, without long-term current use of insulin ([facility]) Check 1-2 x daily 100 each 11 4 Active triamcinolone (NASACORT) 55 mcg nasal inhalerIndicatio ns:Chronic sinusitis, unspecified location Administer 2 sprays into each nostril daily 16.9 mL 11 4 Active OneTouch Verio Flex meter miscIndications: Type 2 diabetes mellitus with hyperglycemia, without long-term current use of insulin ([facility]) USE DIRECTED 1 each 4 Active mupirocin (BACTROBAN) 2 % ointment Apply topically 3 (three) times a day 22 g 4 Active atorvastatin (LIPITOR) 10 mg tabletIndication s:Hyperlipidemia associated with type 2 diabetes mellitus (HCC) Take 1 tablet (10 mg total) by mouth daily 90 tablet 1 5 09/12/19 25 Active Active Problems Problem Noted Date Diagnosed Date Type 2 diabetes mellitus wit h hyperglycemia, without long-term current use of insulin 11/16/2023 Assessment & Plan (11/16/2023 1:00 PM CDT): Chronic, improving controlled A1c 7.0% Continue current dose of metformin 500 mg 1 tablet oral twice a day Counseled on healthy lifestyle habits Recommend to make an eye exam appointment soon Check urine microalbumin Follow-up in 6 months Hyperlipidemia associated with type 2 diabetes m yaniv 11/16/2023 Assessment & Plan (11/16/2023 12:59 PM CDT): Start statin therapy low-dose to decrease CVD risk Class 1 obesity due to exces s calories with serious comorbidity and body mass index (BMI) of 30.0 to 30.9 in adult 11/16/2023 Assessment & Plan (11/16/2023 12:59 PM CDT): Counseled on healthy lifestyle habits Recommend to increase protein with each meal and include lots of vegetables and cutback on portions with carbs and include healthy choice with carbs Avoid simple sugars Cut back on processed food Avoid too much snacking in between meals Advised patient to increase physical activity least 30 minutes aerobic 5 times a week and include 2 to 3 times a week resistance training exercises Chronic rhinitis 11/16/2023 Assessment & Plan (01/10/2024 2:28 PM HEALTH AND WELLNESS INSTRUCTOR): Nasal saline spray (Simply saline, Little Remedies, [place], [place]) 2 second sprays or 2 squeezes into each nostril while looking down over the sink, do not need to sniff in. Continue Nasacort at 1 spray into each nostril for one month and then try to stop and just continue the nasal saline 1-2 times daily Assessment & Plan (11/16/2023 3:22 PM CDT): Nasal saline spray (Simply saline, Little Remedies, [place], [place]) 2 second sprays or 2 squeezes into each nostril while looking down over the sink, do not need to sniff in twice daily Followed by Nasacort 2 sprays into each nostril while looking down over the sink, do not sniff in or blow nose after use for at least 30 minutes daily Then use CPAP about 30 to 60 minutes after using Nasacort Follow up in 6 weeks Consider adding oral antihistamine or Pepcid 40 mg GORDO (obstructive sleep apnea) 06/16/2022 Assessment & Plan (08/12/2023 12:18 PM CDT): Patient continue to wear her CPAP at 8 cm water pressure while sleeping. Her DME is [employer]. Assessment & Plan (08/13/2022 2:01 PM CDT): The patient continues to benefit from CPAP at 10 cm water pressure. Her DME supplier is [employer]. She will follow-up with me in 1 year. Assessment & Plan (06/16/2022 2:24 PM CDT): The patient is adapting well to CPAP at 8 cm water pressure and is benefiting from therapy. She is ready to have the CPAP setting increased to 10 cm water. I will also send an order to show her a variety of nasal pillows styles of mask. Her DME supplier is [employer]. She will follow-up here in 3 months. PLMD (periodic limb movement disorder) Assessment & Plan (08/12/2023 12:18 PM CDT): The patient is unaware that her limbs are moving at night when she sleeps Assessment & Plan (08/13/2022 2:02 PM CDT): Her states that her limbs are moving much less with CPAP therapy. The patient is not aware of any PLMS and she is on no medications for this. Assessment & Plan (06/16/2022 2:24 PM CDT): The PLMS have improved with therapy for CPAP and she is not aware that her limbs are moving at night. I will check iron studies. She recently had a normal BUN and creatinine. Aftercare following left hip joint replacement s urgarlene 04/23/2020 Aftercare following right hip joint replacement surgery 01/29/2020 Resolved Problems Problem Noted Date Diagnosed Date Resolved Date Primary insomnia 06/16/2022 08/12/2023 Assessment & Plan (08/13/2022 2:02 PM CDT): Her insomnia is improving with CPAP therapy. Assessment & Plan (06/16/2022 2:24 PM CDT): I did recommend cognitive behavioral therapy and I have given her the 2 brochures that are published by the [place] [employer]. I also discussed sleep restriction therapy. Snoring 03/17/2022 06/16/2022 Assessment & Plan (03/17/2022 3:34 PM HEALTH AND WELLNESS INSTRUCTOR): The patient presents with snoring, witnessed apneas and daytime fatigue. She also has difficulty with insomnia at times. I have recommended proceeding with a nocturnal polysomnogram with a split night protocol if necessary and no MSLT. She will follow-up here in 3 months. Primary osteoarthritis of left hip 04/04/2020 04/23/2020 Overview (04/04/2020): Added automatically from request for surgery [id number] Primary osteoarthritis of right hip 11/06/2019 04/23/2020 Overview (11/06/2019): Added automatically from request for surgery [id number] Encounters Date Type Department Care Team Description 03/15/2024 Telephone [facility] Specialists of [address] [address] Ewa Adams MD Med Management; Med Refill 02/06/2024 2:00 PM HEALTH AND WELLNESS INSTRUCTOR Office Visit [facility] at [address] [address] Nury Hercules PA Folliculitis (Primary Dx) from Last 3 Months Surgical History Surgery Date Site/Laterality Comments HYSTERECTOMY APPENDECTOMY GALLBLADDER SURGERY EYE SURGERY NOSE SURGERY LUMBAR FUSION THYROIDECTOMY, PARTIAL CHOLECYSTECTOMY HIP ARTHROPLASTY Right JOINT REPLACEMENT Medical History Medical History Date Comments Gastric reflux GERD (gastroesophageal reflux disease) GORDO (obstructive sleep apnea) 06/16/2022 Social History Tobacco Use Types Packs/Day Years Used Date Smoking Tobacco: Former Smokeless Tobacco: Never Tobacco Cessation:Counseling Given: Not Answered Alcohol Use Standard Drinks/Week Comments Yes 0 (1 standard drink = 0.6 oz pur e alcohol) occasionally PHQ-2 Answer Date Recorded PHQ-2 Total Score (If total score is 3 or more points, staff should administer the PHQ-9) 0 11/16/2023 Comments No Sex and Gender Information Value Date Recorded Sex Assigned at Not on file Legal Sex Female 6:28 AM HEALTH AND WELLNESS INSTRUCTOR Gender Identity Not on file Sexual Orientation Not on file Obstetrics History Last Filed Vital Signs Vital Sign Reading Time Taken Comments Blood Pressure 148/78 02/06/2024 2:10 PM HEALTH AND WELLNESS INSTRUCTOR Pulse 62 02/06/2024 2:10 PM HEALTH AND WELLNESS INSTRUCTOR Temperature 36.6 C (97.8 F) 02/06/2024 2:10 PM HEALTH AND WELLNESS INSTRUCTOR Respiratory Rate 20 02/06/2024 2:10 PM HEALTH AND WELLNESS INSTRUCTOR Oxygen Saturation 97% 02/06/2024 2:1 0 PM HEALTH AND WELLNESS INSTRUCTOR Inhaled Oxygen Concentration - - Weight 82.6 kg (182 lb) 02/06/2024 2:10 PM HEALTH AND WELLNESS INSTRUCTOR Patient Reported Height 162.6 cm (5' 4 ) 02/06/2024 2:10 PM HEALTH AND WELLNESS INSTRUCTOR Body Mass Index 31.24 02/06/2024 2:10 PM HEALTH AND WELLNESS INSTRUCTOR Plan of Treatment Health Maintenance Due Date Last Done Comments Hepatitis C Screening 1950 Osteoporosis Screening-Bone Density Scan 1948 Dilated Eye Exam 1948 Lipid Panel 1948 Pneumococcal vaccine 65+ (1 of 2 - PCV) 1954 DTaP/Tdap/Td Vaccine (1 - Tdap) 1959 Hepatitis B Screening 1966 Zoster Vaccine (1 of 2) 1998 Well Visit 65+ 2013 eGFR 04/04/2021 04/04/2020, 12/07, 12/11/2019, Additional history exists Covid-19 Vaccine (4 - 2023-2 5 season) 2023 02/02/2021, 06/21/2020, 05/24/2020 Influenza Vaccine (#1) 2023 Hemoglobin A1C 05/15/2024 11/16/2023, 08/2023, 04/04/2020, Additional history exists Albumin Creatinine Ratio, Urine 11/15/2024 Depression Screening 11/15/2024 11/16/2023 Fall Risk Assessment 11/15/2024 11/16/2023, 12/26/19 20 Foot Exam 11/15/2024 11/16/2023 Medical Devices Implanted Type Area Record Searcher Device Identifier Shelf Expiration Date Model / Serial / Lot [employer] [id number] [employer] 52mm Sector Hip Shell Acetabular Gription Sterile Latex Free - [id number] Implanted:Qty: 1 on 12/25/2019 by Daniel Tariq MD at [facility] Right: Hip [employer] 10/05/2029 [id number] / / [id number] [employer] [id number] Naval Anacost Annex 52mm 36mm Hip Neutral Liner Acetabular Altrx Sterile Latex Free - [id number] Implanted:Qty: 1 on 12/25/2019 by Daniel Tariq MD at [facility] Right: Hip [employer] 10/05/2024 [id number] / / [id number] [employer] [id number] Actis 105mm Collar Hip 5 High Offset Stem Femoral - [id number] Implanted:Qty: 1 on 12/25/2019 by Daniel Tariq MD at [facility] Right: Hip [employer] 09/04/2029 [id number] / / [id number] [employer] [id number] Articul/[place]ador 36mm Cementless Hip +1.5mm 12/14 Taper Head Femoral Latex Free - [id number] Implanted:Qty: 1 on 12/25/2019 by Daniel Tariq MD at [facility] Right: Hip [employer] 10/05/2024 [id number] / / [id number] [employer] [id number] Naval An[place]ost Annex 52mm 36mm Hip Neutral Liner Acetabular Altrx Sterile Latex Free - [id number] Implanted:Qty: 1 on 04/08/2020 by Daniel Tariq MD at [facility] Left: Hip [employer] 01/05/2025 [id number] / / [id number] [employer] [id number] Naval Anacost Annex 52mm Sector Hip Shell Acetabular Gription Sterile Latex Free - [id number] Implanted:Qty: 1 on 04/08/2020 by Daniel Tariq MD at [facility] Left: Hip [employer] 01/05/2030 [id number] / / [id number] [employer] [id number] Actis L107 Mm Collar Hip 6 High Offset Stem Femoral - [id number] Implanted:Qty: 1 on 04/08/2020 by Daniel Tariq MD at [facility] Left: Hip [employer] 02/04/2030 [id number] / / [id number] [employer] [id number] Articul/[place] 36mm Cementless Hip +1.5mm 12/14 Taper Head Femoral Latex Free - [id number] Implanted:Qty: 1 on 04/08/2020 by Daniel Tariq MD at [facility] Left: Hip [employer] 02/04/2025 [id number] / / [id number] Procedures Procedure Name Priority Date/Time Associated Diagnosis Comments ALBUMIN CREATININE RATIO, URINE Routine 11/16/2023 12:23 PM CDT Type 2 diabetes mellitus with hyperglycemia, without long-term current use of insulin ([facility]) ([facility]) POCT HEMOGLOBIN A1C Routine 11/16/2023 1 1:31 AM CDT Type 2 diabetes mellitus with hyperglycemia, without long-term current use of insulin ([facility]) (HCC) EGFR Routine 04/04/2020 11:34 AM HEALTH AND WELLNESS INSTRUCTOR Pre-op testing from Last 3 Months or Most Recently Relevant to Health Maintenance Results * Albumin Creatinine Ratio, Urine (11/16/2023 12:23 PM CDT) Albumin Ur <12.0 mg/L Comment: Interpretive Data No reference range established. Current interpretive data was last revised 2018. Creatinine Ur 106.4 mg/dL MIKE ZALDIVAR Comment: Interpretive Data No reference range established. Current interpretive data was last revised 2018. Albumin Creatinine Ratio, Ur <11 1 - 29 mg/g MIKE ZALDIVAR Urine 11/16/2023 12:2 3 PM CDT 11/16/2023 10:31 PM CDT us Ewa Jerome MD LAB URINE ORDERABLE S Final Result MIKE ZALDIVAR [id number] [place] [address] * POCT hemoglobin A1c (11/16/2023 11:31 AM CDT) Hemoglobin A1C, POC 7.0 4.0 - 5.6 % Blood 11/16/2023 11:3 1 AM CDT us Ewa Jerome MD POINT OF CARE TEST ORDERABLES Final Result * eGFR (04/04/2020 11:34 AM HEALTH AND WELLNESS INSTRUCTOR) eGFR 92 mL/min/1.7 3 m2 MIKE MIRANDA (OLINDA) Comment: Interpretive Data Reference Interval Normal >/= 90 mL/min/1.73m2 Mildly decreased* 60 - 89 mL/min/1.73m2 Mildly to moderately decreased 45 - 59 mL/min/1.73m2 Moderately to severely decreased 30 - 44 mL/min/1.73m2 Severely decreased 15 - 29 mL/min/1.73m2 Kidney Failure < 15 mL/min/1.73m2 *Relative to young adult level Estimated glomerular filtration rate is determined by the CKD-EPI equation recommended by the National Kidney Foundation (KDIGO 2012 Clinical Practice Guideline for the Evaluation and Management of Chronic Kidney Disease. Kidney Intnl Suppl Mar 2012;3:1). The CKD-EPI equation should not be used for patients with unstable renal function and has not been validated in children and those over 70. Current interpretive data was last reviewed 2020 Blood specimen (specimen) 04/04/2020 11:34 AM HEALTH AND WELLNESS INSTRUCTOR 04/04/2020 12:14 PM HEALTH AND WELLNESS INSTRUCTOR us Daniel Tariq MD LAB BLOOD ORDERABLES Fin al Result [facility] [address] [facility] Department [place] [address] from Last 3 Months or Most Recently Relevant to Health Maintenance Insurance [facility] MEDICARE [facility] Advance Directives For more information, please contact: [phone] * Full Code (Latest Code Status on File) Date Activated Date Inactivated Comments 04/08/2020 10:35 AM 04/08/2020 7:22 PM * Full Code Date Activated Date Inactivated Comments 12/25/2019 1:27 PM 12/26/2019 5:47 PM Care Teams Supermarket Manager Relationship Specialty Start Date End Date Peter Patrick MD [address] [facility] [address] [place] [address] PCP - General 12/06/12 Daniel Tariq MD [address] [place] [address] [place] [address] Surgeon Orthopedic Surgery 12/26/19 Sophy Steven PA [address] [facility] [address] [place] [address] Orthopedic Surgery 04/08/20
--- OUTSIDE RECORDS SUMMARY | 2024-04-20 13:56 | XMS_ITS | Referral Summary ---
Author Organization [facility] B Address [address] [place] [address] Care Team Providers [employer] Name Role Phone Peter Patrick MD Primary Care Provider [phone] Daniel Tariq MD Unavailable [phone] Sophy Steven Unavailable [phone] Encounters Date Type Department Care Team Description 03/15/2024 Telephone [facility] [address] [address] Ewa Adams MD Med Management; Med Refill 02/06/2024 2:00 PM [employer] Office Visit [facility] at [address] [address] Nury Hercules PA Folliculitis (Primary Dx) from Last 3 Months Allergies Active Allergy Reactions Criticality Noted Date [...] hyperglycemia, without long-term current use of insulin ([facility]) 1-2 x daily 100 each 3 4 Active OneTouch Verio test strips stripIndications :Type 2 diabetes mellitus with hyperglycemia, without long-term current use of insulin ([facility]) Check 1-2 x daily 100 each 11 4 Active triamcinolone (NASACORT) 55 mcg nasal inhalerIndicatio ns:Chronic sinusitis, unspecified location Administer 2 sprays into each nostril daily 16.9 mL 11 4 Active AvanseraTouch Verio Flex meter miscIndications: Type 2 diabetes mellitus with hyperglycemia, without long-term current use of insulin ([facility]) USE DIRECTED 1 each 4 [...] 11/16/2023 Assessment & Plan (01/10/2024 2:28 PM [employer]): Nasal saline spray (Simply saline, Little Remedies, [place], [place]) 2 second sprays or 2 squeezes into each nostril while looking down over the sink, do not need to sniff in. Continue Nasacort at 1 spray into each nostril for one month and then try to stop and just continue the nasal saline 1-2 times daily Assessment & Plan (11/16/2023 3:22 PM CDT): Nasal saline spray (Simply saline, Little Remedies, [place], Thompson) 2 second sprays or 2 squeezes into [...] styles of mask. Her DME supplier is [facility]. She will follow-up here in 3 months. [...] Aftercare following left hip joint replacement s urgery 04/23/2020 Aftercare following right hip joint replacement surgery 01/29/2020 Resolved Problems Problem Noted Date Diagnosed Date Resolved Date Primary insomnia 06/16/2022 08/12/2023 Assessment & Plan (08/13/2022 2:02 PM CDT): Her insomnia is improving with CPAP therapy. Assessment & Plan (06/16/2022 2:24 PM CDT): I did recommend cognitive behavioral therapy and I have given her the 2 brochures that are published by the [place] [employer]. I also discussed sleep restriction therapy. Snoring 03/17/2022 06/16/2022 Assessment & Plan (03/17/2022 3:34 PM [employer]): The patient presents with snoring, witnessed apneas and daytime fatigue. She also has difficulty with insomnia at times. I have recommended proceeding with a nocturnal polysomnogram with a split night protocol if necessary and no MSLT. She will follow-up here in 3 months. Primary osteoarthritis of left hip 04/04/2020 04/23/2020 Overview (04/04/2020): Added automatically from request for surgery [id number] Primary osteoarthritis of right hip 11/06/2019 04/23/2020 Overview (11/06/2019): Added automatically from request for surgery [id number] Social History Tobacco Use Types Packs/Day Years [...] on file Legal Sex Female 6:28 AM [employer] Gender Identity Not on file Sexual Orientation Not on file Last Filed Vital Signs Vital Sign Reading Time Taken Comments Blood Pressure 148/78 02/06/2024 2:10 PM [employer] Pulse 62 02/06/2024 2:10 PM [employer] Temperature 36.6 C (97.8 F) 02/06/2024 2:10 PM [employer] Respiratory Rate 20 02/06/2024 2:10 PM [employer] Oxygen Saturation 97% 02/06/2024 2:1 0 PM [employer] Inhaled Oxygen Concentration - - Weight 82.6 kg (182 lb) 02/06/2024 2:10 PM [employer] Patient Reported Height 162.6 cm (5' 4 ) 02/06/2024 2:10 PM [employer] Body Mass Index 31.24 02/06/2024 2:10 PM [employer] Plan of Treatment Not on file Medical Devices Implanted Type Area Cullet Crusher Device Identifier Shelf Expiration Date Model / Serial / Lot [employer] [id number] [place] 52mm Sector Hip Shell Acetabular Gription Sterile Latex Free - [id number] Implanted:Qty: 1 on 12/25/2019 by Daniel Tariq MD at [facility] Right: Hip [employer] 10/05/2029 [id number] / / [id number] [employer] [id number] [place] 52mm 36mm Hip Neutral Liner Acetabular Altrx Sterile Latex Free - [id number] Implanted:Qty: 1 on 12/25/2019 by Daniel Tariq MD at [facility] Right: Hip [employer] 10/05/2024 [id number] / / [id number] [employer] [id number] Actis 105mm Collar Hip 5 High Offset Stem Femoral - [id number] Implanted:Qty: 1 on 12/25/2019 by Daniel Tariq MD at [facility] Right: Hip [employer] 09/04/2029 [id number] / / [id number] [employer] [id number] Articul/Salvador 36mm Cementless Hip +1.5mm 12/14 Taper Head Femoral Latex Free - [id number] Implanted:Qty: 1 on 12/25/2019 by Daniel Tariq MD at [facility] Right: Hip [employer] 10/05/2024 [id number] / / [id number] [employer] [id number] [place] 52mm 36mm Hip Neutral Liner Acetabular Altrx Sterile Latex Free - [id number] Implanted:Qty: 1 on 04/08/2020 by Daniel Tariq MD at [facility] Left: Hip [employer] 01/05/2025 [id number] / / [id number] [employer] [id number] [place] 52mm Sector Hip Shell Acetabular Gription Sterile Latex Free - [id number] Implanted:Qty: 1 on 04/08/2020 by Daniel Tariq MD at [facility] Left: Hip [employer] 01/05/2030 [id number] / / [id number] [employer] [id number] Actis L107 Mm Collar Hip 6 High Offset Stem Femoral - [id number] Implanted:Qty: 1 on 04/08/2020 by Daniel Tariq MD at [facility] Left: Hip [employer] 02/04/2030 [id number] / / [id number] [employer] [id number] Articul/Salvador 36mm Cementless Hip +1.5mm 02/18 Taper Head Femoral Latex Free - [id number] Implanted:Qty: 1 on 04/08/2020 by Daniel Tariq MD at [facility] Left: Hip [employer] 02/04/2025 [id number] / / [id number] Procedures Procedure Name Priority Date/Time Associated Diagnosis Comments ALBUMIN CREATININE RATIO, URINE Routine 11/16/2023 12:23 PM CDT Type 2 diabetes mellitus with hyperglycemia, without long-term current use of insulin ([facility]) ([facility]) POCT HEMOGLOBIN A1C Routine 11/16/2023 1 1:31 AM CDT Type 2 diabetes mellitus with hyperglycemia, without long-term current use of insulin ([facility]) ([facility]) EGFR Routine 04/04/2020 11:34 AM [employer] Pre-op testing from Last 3 Months or Most Recently Relevant to Health Maintenance Results * Albumin Creatinine Ratio, Urine (11/16/2023 12:23 PM CDT) Albumin Ur <12.0 mg/L Comment: Interpretive Data No reference range established. Current interpretive data was last revised 2018. Creatinine Ur 106.4 mg/dL MIKE Comment: Interpretive Data No reference range established. Current interpretive data was last revised 2018. Albumin Creatinine Ratio, Ur <11 1 - 29 mg/g MIKE Urine 11/16/2023 12:2 3 PM CDT 11/16/2023 10:31 PM CDT us Ewa Jerome MD LAB URINE ORDERABLE S Final Result MIKE [address] Department [place] [address] * POCT hemoglobin A1c (11/16/2023 11:31 AM CDT) Hemoglobin A1C, POC 7.0 4.0 - 5.6 % Blood 11/16/2023 11:3 1 AM CDT Ewa Jerome MD POINT OF CARE TEST ORDERABLES Final Result * eGFR (04/04/2020 11:34 AM [employer]) eGFR 92 mL/min/1.7 3 m2 MIKE MIRANDA [...] 2020 Blood specimen (specimen) 04/04/2020 11:34 AM [employer] 04/04/2020 12:14 PM [employer] Daniel Tariq MD LAB BLOOD ORDERABLES Fin al Result MIKE RUBEN (OLINDA) 1 [facility] Department [place] [address] from Last 3 Months or Most Recently Relevant to Health Maintenance Insurance [employer] MEDICARE [facility] Advance Directives For more information, please contact: [phone] * Full Code (Latest Code Status on File) Date Activated Date Inactivated Comments 04/08/2020 10:35 AM 04/08/2020 7:22 PM * Full Code Date Activated Date Inactivated Comments 12/25/2019 1:27 PM 12/26/2019 5:47 PM Care Teams [employer] Relationship Specialty Start Date End Date Peter Patrick MD [address] [address] PCP - General 12/06/12 Daniel Tariq MD [address] [address] Surgeon Orthopedic Surgery 12/26/19 Sophy Steven PA [address] [address] Orthopedic Surgery 04/08/20
--- OUTSIDE RECORDS SUMMARY | 2024-04-20 13:59 | XMS_ITS | Continuity of Care Document ---
Author Organization [facility] Address [address] [place] [address] Phone Care Team Providers Care Fourchette Sewer Name Role Phone Pancho Doe MD Unavailable Unavailable Advance Directives Directive Yes / No Effective Date File Name No Information Encounters Encounter Description Practice Location Reason(s) For Visit Diagnoses Date Provider Providers Copied on Encounter [facility], [address], [place], [place], [id number], tel:[phone] [facility] No Information Nader Deleon. [address], [place], [place], [id number], [place]. tel:[phone] Referring Provider: Fadi Persaud, [address], [place], [address]. tel:[phone] Family History Family Member Type Diagnosis Age At Onset No Information Payers Payer name Insurance type Covered republican ID Authoriza tion(s) [employer] OPEN ACCESS HMO PPO POS CI [id number] Social History Type Description Quantity Date Captured [...]
[2024-04-20 14:12] VITALS: BP 141/71; PULSE 79; RESP 16; TEMP 36.9; O2SAT 99
--- NOTE | 2024-04-20 14:57 | ED.URI ---
HPI - URI/Sore Throat General Chief Complaint: Upper Respiratory Infection Stated Complaint: sinus/ears/throat Time Seen by Provider: 04/20/24 14:40 Source: patient, RN notes reviewed and old records reviewed Mode of arrival: ambulatory Limitations: no limitations History of Present Illness HPI Narrative: 74 year old female who presents to [facility] care with complaints of being ill for about 3 weeks, She reports that she had body aches and some fevers last week.She states that she has now has sinus congestion with pressure to her ears, face and has cough which increases at night for the past week. Patient reports that she has been taking Mucinex, cough medication and some Tylenol sinus medication. MD elicited complaint: cough, rhinorrhea, nasal congestion, sinus pain and other (ear pain) Onset (ago): week(s) (ill for about 3 weeks) Consistency: progressively worsening Severity: moderate Able to tolerate fluids by mouth: Yes Treatments prior to arrival: other (Tylenol sinus, Mucinex and cough medication) Related Data Home Medications ?Medication ?Instructions ?Recorded ?Confirmed ?Last Taken ?Type wmglppoq-tcf-sxbrxn 5 mg-zeaxanth 1 cap PO DAILY 03/23/19 01/05/24 01/20/23 History 1 mg-bilberry 7.5 mg-herbal capsule ([employer] Formula) potassium gluconate 600 mg (99 mg) 600 mg PO DAILY 02/18/22 01/05/24 01/20/23 History tablet atorvastatin 10 mg tablet mg PO 01/05/24 01/05/24 Unknown History Allergies Allergy/AdvReac Type Severity Reaction Status Date / Time mercury (elemental) AdvReac Intermediate Redness of Verified 01/05/24 08:01 Skin mometasone furoate AdvReac Intermediate Migraine Verified 01/05/24 08:01 Review of Systems Review of Systems: CONSTITUTIONAL: Reports malaise, no chills, sweats, or fever for past week EYES: Denies visual changes, redness, or discharge. ENT: Reports rhinorrhea, congestion, sinus pain, bilateral otalgia and no sore throat. CARDIOVASCULAR: Denies chest pain, palpitations, or edema. RESPIRATORY: Reports cough.? Denies dyspnea. GASTROINTESTINAL: Denies abdominal pain, nausea, vomiting, diarrhea SKIN: Denies rash or itching. MUSCULOSKELETAL: Denies myalgia. NEUROLOGIC: frontal headache. All systems reviewed & are unremarkable except as noted in HPI and below PMFSH Past Medical History Medical History Hyperglycemia History of broken nose (~2018) Right thyroid nodule Torn tendon (~2008) left leg 2009 Cataract Surgical History Surgical History History of hip replacement, total History of lumbar fusion (~2017) History of cholecystectomy (~2006) H/O bladder repair surgery (~2002) H/O foot surgery (~1997) H/O tubal ligation (~1977) History of appendectomy (~1964) Hx of tonsillectomy (~1960) Family History Family History Sibling Family history of arthritis Family history of lymphoma Mother No problems noted. Father No problems noted. Social History Social History Smoking status: Never smoker Second hand tobacco smoke exposure: No Alcohol intake: current Drinks per week: 1 Alcohol use details: occassionally Substance use: never Substance use type: does not use Do You Feel Safe in your Home?: Yes Lack of Transportation: No Lack of Food: Never True Current Housing: I Have Housing Concerned About Future Housing: No Difficulty Paying Gas/Electric Bills: No Difficulty Paying for Meds: No Currently Unemployed: No Education: High School Diploma/GED Difficulty w/ Childcare or Family Care: No Living arrangements: with family Occupation/Education: retired Additional occupation/education comments: [employer] Gender identity (if verbalized by the patient): Female Spiritual care concerns: No Comments At time of signature, agree with nursing past medical, surgical, social and family history. There is no relevant family history pertinent to the presenting complaint Exam Narrative: GENERAL: Well-appearing, well-nourished, and in no acute distress. HEAD: Normocephalic EYES: PERRLA, conjunctivae clear ENT: Nares red,, turbinates edematous and erythematous, clear discharge. sinus pressure and headache.Mucous membranes moist. TM pearly aburto with dull light reflex bilaterally; no tragal tenderness. Oropharynx erythematous without lesions. Tonsils not present and throat without exudate, no drooling, no hoarseness, no trismus, uvula midline.post nasal drainage NECK: Supple. No lymphadenopathy CHEST: Clear to auscultation, breath sounds equal. No wheezing, rhonchi, rales, or stridor. No respiratory distress, speaks in full sentences.dry cough worse at night reported, SAO2 99% on room air HEART: Regular rate and rhythm. No murmur heard. SKIN: Warm, dry, no rash. NEURO: Alert and oriented x3. PSYCH: Normal mood and affect Course Course Emergency Course: Patient is aware of diagnosis, understands and agrees to treatment plan.? Anticipatory guidance given.? Patient agrees to follow-up as directed and is aware of reasons to seek care at the emergency department. Portions of this record may have been created with voice recognition software Level of Care: Express Care Visit Vital Signs Vital signs: Vital Signs Temperature 36.9 C 04/20/24 14:12 Pulse Rate 79 04/20/24 14:12 Respiratory Rate 16 04/20/24 14:12 Blood Pressure 141/71 H 04/20/24 14:12 Pulse Oximetry 99 04/20/24 14:12 Oxygen Delivery Room Air 04/20/24 14:12 Temperature 36.9 C 04/20/24 14:12 Pulse Rate 79 04/20/24 14:12 Respiratory Rate 16 04/20/24 14:12 Blood Pressure 141/71 H 04/20/24 14:12 Pulse Oximetry 99 04/20/24 14:12 Oxygen Delivery Room Air 04/20/24 14:12 Reviewed MDM - URI/Sore Throat MDM Narrative Medical decision making narrative: Differential diagnosis considered: Lewis virus, strep pharyngitis, allergic rhinitis, upper respiratory tract infection, sinusitis, rhinosinusitis, nasopharyngitis. viral pharyngitis, otitis media, otitis externa, pneumonia, bronchitis, viral cough syndrome, viral syndrome, and influenza.? Exam findings show no acute concerns or changes; patient is non-toxic appearing and is in no distress.? Patient is appropriate for outpatient treatment and follow-up. Differential Diagnosis Differential diagnosis: Likely upper respiratory infection, sinusitis, viral infection and other (acute cough) Medical Records Attestation: I reviewed the patient's medical records. Lab Data Attestation: I reviewed the patient's lab results. Critical Care Time Critical Care Time Critical Care Time: No Discharge Plan Discharge Clinical Impression: Sinusitis Qualifiers: Sinusitis location: pansinusitis Chronicity: acute Recurrence: not specified as recurrent Qualified Code(s): J01.40 - Acute pansinusitis, unspecified Patient Disposition: Home, Self-Care Condition: Stable Instructions: Antibiotic Form, Sinusitis (ED) Additional Instructions: Increase fluids especially juices and water Atqh-lgc-tvniciu cough and cold medicine of your choice for your symptoms Did Zyrtec Claritin or Tereza daily include Coricidin brand decongestant heat to the face 20-30 minutes 4-6 times a day for pain Salt water gargles, throat lozenges or throat sprays as desired Antibiotic as directed--finished the medication Tylenol or ibuprofen for fever pain If your symptoms persist, change or worsen significantly before you can contact your personal physician then please, without delay, go to the emergency department for further evaluation. Follow-up with PCP in 7-10 days or sooner if needed Follow up with PCP soon in regards to your blood pressure which is elevated above threshold for referral. Blood pressure above 120/80 may indicate pre-hypertension.141/71 Patient Language: Kinyarwanda Prescriptions: New amoxicillin-pot clavulanate 875-125 mg tablet 1 tablet PO Q12H Qty: 20 0RF Rx Instructions: take with food, take probiotics or eat activia yogurt while taking this medication No Action potassium gluconate 600 mg (99 mg) tablet 600 mg PO DAILY [facility] Formula 5-1-7.5 mg capsule 1 cap PO DAILY atorvastatin 10 mg tablet PO omeprazole 20 mg capsule,delayed release(DR/EC) 20 mg PO DAILY Qty: 90 3RF citalopram 20 mg tablet 20 mg PO DAILY Qty: 90 3RF Eliquis 5 mg tablet 5 mg PO BID 90 Days Qty: 180 3RF metformin 500 mg tablet 500 mg PO BIDWMEAL Qty: 180 3RF Follow-up/Referrals: Ketan Lei DO [Primary Care Provider] - Time of Disposition: 15:03 Quality [place] Coma Scale Eyes: Open Verbal: Oriented and Alert Motor: Follows Commands [place] Coma Total Score: 15
== END 2024-04-20 15:08 | disposition home or self-care (01) ==
PROVIDERS: Emergency Provider Registered Nurse; PCP Internal Medicine
DX: J01.40 Acute pansinusitis, unspecified (principal)
CPT/HCPCS: 99213; G0463

== ENCOUNTER 2024-11-30 17:44 | Emergency (ER) | payer OTHER, SELFPAY ==
--- OUTSIDE RECORDS SUMMARY | 2017-05-17 08:15 | XMS_ITS | Continuity of Care Document ---
Author Organization [facility] Address [address] [place] [address] Phone Care Team Providers Care Luggage Maker Name Role Phone Pancho Doe MD Unavailable Unavailable Advance Directives Directive Yes / No Effective Date File Name No Information Encounters Encounter Description Practice Location Reason(s) For Visit Diagnoses Date Provider Providers Copied on Encounter [facility], [address], [place], [place], [address], tel:[phone] [facility] No Information Nader Deleon. [address], [place], [place], [address], [place]. tel:[phone] Referring Provider: Fadi Persaud, [address], [place], [address]. tel:[phone] Family History Family Member Type Diagnosis Age At Onset No Information Payers Payer name Insurance type Covered green party ID Authoriza tion(s) [employer] OPEN ACCESS HMO PPO POS [place] [id number] Social History Type Description Quantity Date Captured Comments Sex Female Smoking Status No Information Chief Complaint And Reason For Visit No Information Reason For Referral Reason For Referral No Information History Of Present Illness Encounter Date Complaint History Of Prese nt Illness No Information Functional Status Date Functional Assessmen t No Information Instructions Date Instruction Additional Infor mation No Information Assessments Type Assessment Date No Information Patient Care Teams Name Effective Dates (start - stop) Status Members No Information
--- OUTSIDE RECORDS SUMMARY | 2024-11-29 16:15 | XMS_ITS | Encounter Summary ---
Author Organization [facility] Healthcare Address [address] [place] [address] Care Team Providers Care Restaurant Server Name Role Phone Daniel Tariq MD Unavailable [phone] Sophy Steven Unavailable [phone] Ketan Lei DO Primary Care Provider [phone] Reason for Visit * Reason Comments Mass Right top lip, red, sore, swollen, unable to bite on that side 1 week Encounter Details Date Type Department Care Team (Late st Contact Info) Description 11/29/2024 4:15 PM CDT Office Visit [facility] at [address] [address] Jay Stanley NP [address] [place] [address] [address] [place] [address] Abscess of face (Primary Dx) [...] on file 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 Gender Identity Not on file Sexual Orientation [...] day for 10 days 22 g 11/29/2024 doxycycline (VIBRAMYCIN) 100 mg capsuleIndications :Abscess of face Take 1 tablet/capsule (100 mg total) by mouth 2 (two) times a day for 7 days 14 tablet/capsule 11/29/2024 5 documented in this encounter Plan of Treatment Not on file documented as of this encounter Visit Diagnoses Diagnosis Abscess of face- Primary Cellulitis and abscess of face documented in this encounter Care Teams Restaurant Server Relationship Specialty Start Date End Date Ketan Lei DO PCP - General Internal Medicine 05/21/24 Daniel Tariq MD Surgeon Orthopedic Surgery 12/26/19 Sophy Steven PA Orthopedic Surgery 04/08/20 documented as of this encounter
--- OUTSIDE RECORDS SUMMARY | 2024-11-30 17:00 | XMS_ITS | Encounter Summary ---
Author Organization [facility] Healthcare Address [address] [place] [address] Care Team Providers Care Horseradish Grinder Name Role Phone Daniel Tariq MD Unavailable [phone] Sophy Steven Unavailable [phone] Ketan Lei DO Primary Care Provider [phone] Reason for Visit * Reason Comments Abscess On the right upper l ip, swelling down to jaw line into neck can possibly feel another bump, has done everything she was instructed and last night started with a bump and this afternoon started swelling Encounter Details Date Type Department Care Team (Late st Contact Info) Description 11/30/2024 5:00 PM CDT Office Visit [facility] at [address] [address] Jay Stanley NP [address] [place] [address] [address] [place] [address] Facial abscess (Primary Dx) Social History Tobacco Use Types [...] on file 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 Gender Identity Not on file Sexual Orientation Not on file documented as of this encounter Last Filed Vital Signs Vital Sign Reading Time Taken Comments Blood Pressure 151/75 11/30/2024 5:00 PM CDT Pulse 70 11/30/2024 5:00 PM CDT Temperature 36.7 C (98 F) 11/30/2024 5:00 PM CDT Respiratory Rate 16 11/30/2024 5:00 PM CDT Oxygen Saturation 98% 11/30/2024 5:00 PM CDT Inhaled Oxygen Concentration - - Weight 83.5 kg (184 lb) 11/30/2024 5:00 PM CDT Height - - Body Mass Index 31.57 11/21/2024 10:48 AM CDT documented in this encounter Patient Instructions * Patient Instructions* Jay Stanley NP - 11/30/2024 5:00 PM CDT Doxycyline started yesterday (4 doses), warm moist compress QID, and symptoms worsening with tx. Recommend ED for further evaluation and tx, to rule out osteomyelitis, and possible IV antibiotics. documented in this encounter Plan of Treatment Not on file documented as of this encounter Visit Diagnoses Diagnosis Facial abscess- Primary Cellulitis and abscess of face documented in this encounter Care Teams Horseradish Grinder Relationship Specialty Start Date End Date Ketan Lei DO PCP - General Internal Medicine 05/21/24 Daniel Tariq MD Surgeon Orthopedic Surgery 12/26/19 Sophy Steven PA Orthopedic Surgery 04/08/20 documented as of this encounter
--- OUTSIDE RECORDS SUMMARY | 2024-11-30 17:50 | XMS_ITS | Clinical Summary ---
Author Organization [facility] Medical Office Building [address] Address [address] [place] [address] Care Team Providers Care Metallurgical Laboratory Assistant Name Role Phone Daniel Tariq MD Unavailable [phone] Sophy Steven Unavailable [phone] Ketan Lei DO Primary Care Provider [phone] Allergies Active Allergy Reactions Criticality Noted Date [...] (VITAMIN D-3) 1,000 unit capsule 0 Active potassium gluconate 600 mg (99 mg) tablet Take by mouth 650 mg Active cycloSPORINE (RESTASIS) 0.05 % ophthalmic emulsion 5 Active fluorometholone (FML) 0.1 % ophthalmic suspension INSTILL 1 DROP INTO BOTH EYES 3 TIMES DAILY 5 Active VITAMIN B COMPLEX 5 Active metFORMIN (GLUCOPHAGE) 500 mg tabletIndicatio ns:Type 2 diabetes mellitus with hyperglycemia, without long-term current use of insulin (HCC) Take 1 tablet (500 mg total) by mouth 2 (two) times a day with meals 180 tablet 3 5 11/22/19 26 Active atorvastatin (LIPITOR) 10 mg tabletIndicatio ns:Hyperlipidem ia associated with type 2 diabetes mellitus (HCC) Take 1 tablet (10 mg total) by mouth daily 90 tablet 3 5 Active doxycycline (VIBRAMYCIN) 100 mg capsuleIndicati ons:Abscess of face Take 1 tablet/capsule (100 mg total) by mouth 2 (two) times a day for 7 days 14 tablet/capsu le 5 12/07/19 25 Active mupirocin (BACTROBAN) 2 % ointmentIndicat ions:Abscess of face Apply topically 3 (three) times a day for 10 days 22 g 5 12/10/19 25 Active OneTouch Delica Plus Lancet 30 gauge miscIndications :Type 2 diabetes mellitus with hyperglycemia, without long-term current use of insulin ([facility]) 1-2 x daily 100 each 3 4 11/22/19 25 Discontin ued(Patie nt Reported) OneTouch Verio test strips stripIndication s:Type 2 diabetes mellitus with hyperglycemia, without long-term current use of insulin ([facility]) Check 1-2 x daily 100 each 11 4 11/22/19 25 Discontin ued(Patie nt Reported) triamcinolone (NASACORT) 55 mcg nasal inhalerIndicati ons:Chronic sinusitis, unspecified location Administer 2 sprays into each nostril daily 16.9 mL 11 4 11/22/19 25 Discontin ued(Patie nt Reported) OneTouch Verio Flex meter miscIndications :Type 2 diabetes mellitus with hyperglycemia, without long-term current use of insulin ([facility]) USE DIRECTED 1 each 4 11/22/19 25 Discontin ued(Patie nt Reported) metFORMIN (GLUCOPHAGE) 500 mg tabletIndicatio ns:Type 2 diabetes mellitus with hyperglycemia, without long-term current use of insulin ([facility]) Take 1 tablet (500 mg total) by mouth 2 (two) times a day with meals 180 tablet 3 5 11/22/19 25 Discontin ued(Reord er) atorvastatin (LIPITOR) 10 mg tabletIndicatio ns:Hyperlipidem ia associated with type 2 diabetes mellitus (HCC) TAKE 1 TABLET DAILY 90 tablet 3 5 11/22/19 25 Discontin ued(Reord er) amoxicillin-cla vulanate (AUGMENTIN) 875-125 mg per tablet Take 1 tablet by mouth 5 11/22/19 25 Discontin ued(Patie nt Reported) atorvastatin (LIPITOR) 10 mg tablet Take by mouth 4 11/22/19 25 Discontin ued(Dupli katy order) apixaban (ELIQUIS) 5 mg tablet Take 1 tablet (5 mg total) by mouth 5 11/22/19 25 Discontin ued(Patie nt Reported) prednisoLONE acetate (PRED FORTE) 1 % ophthalmic suspension INSTILL 1 DROP INTO RIGHT EYE THREE TIMES A DAY DIRECTED. 5 11/22/19 Discontin ued(Patie nt Reported) Active Problems Problem Noted Date Diagnosed Date Type 2 diabetes mellitus wit h hyperglycemia, without long-term current use of insulin 11/16/2023 Assessment & Plan (11/21/2024 11:15 AM CDT): Chronic problem. A1c at goal but mallory slightly from 6.7% 07/17/24 to now 6.9%. no changes at this time. Discussed watching intake & increasing activity as fall/winter is coming. Current medications: Metformin 500mg twice daily before meals UTD on labs. DM eye exam October 2024; appt 11/22/24 [facility] in [place]. Letter sent to get copy of reports. Discussed with Sheridan King: Strive for regular exercise (30min most days) and diet (get at least 4-5 servings of fruit and veggies daily, avoid processed foods, increase lean protein intake and decrease carb portions as well as fruit juices, regular soda & desserts). Watch carbs and simple sugars. Check the feet daily for skin breakdown and infection. Assessment & Plan (11/16/2023 1:00 PM CDT): Chronic, improving controlled A1c 7.0% Continue current dose of metformin 500 mg 1 tablet oral twice a day Counseled on healthy lifestyle habits Recommend to make an eye exam appointment soon Check urine microalbumin Follow-up in 6 months Hyperlipidemia associated with type 2 diabetes wiliam purvis 11/16/2023 Assessment & Plan (11/21/2024 11:02 AM CDT): Chronic problem. Controlled on current Atorvastatin 10mg. Last lipid panel: 06/29/24 LDL=72, VU=570. Assessment & Plan (11/16/2023 12:59 PM CDT): [...] 11/16/2023 Assessment & Plan (01/10/2024 2:28 PM IT ARCHITECT): Nasal saline spray (Simply saline, Little Remedies, [place], [place]) 2 second sprays or 2 squeezes into each nostril while looking down over the sink, do not need to sniff in. Continue Nasacort at 1 spray into each nostril for one month and then try to stop and just continue the nasal saline 1-2 times daily Assessment & Plan (11/16/2023 3:22 PM CDT): Nasal saline spray (Simply saline, [place], [place], [place]) 2 second sprays or 2 squeezes into [...] (obstructive sleep apnea) 06/16/2022 Assessment & Plan (10/23/2024 3:35 PM CDT): The patient continue to wear her CPAP at 8 cm water pressure while sleeping. Her DME is [facility]. I have sent an order over for the patient to see different types of mask. Assessment & Plan (08/12/2023 12:18 PM CDT): [...] (periodic limb movement disorder) Assessment & Plan (10/23/2024 3:36 PM CDT): The patient is unaware that her limbs are moving at night when she sleeps. Assessment & Plan (08/12/2023 12:18 PM CDT): [...] 2 brochures that are published by the [place] [employer]. I also discussed sleep restriction therapy. Snoring 03/17/2022 06/16/2022 Assessment & Plan (03/17/2022 3:34 PM IT ARCHITECT): The patient presents with snoring, witnessed apneas and daytime fatigue. She also has difficulty with insomnia at times. I have recommended proceeding with a nocturnal polysomnogram with a split night protocol if necessary and no MSLT. She will follow-up here in 3 months. Primary osteoarthritis of left hip 04/04/2020 04/23/2020 Overview (04/04/2020): Added automatically from request for surgery [id number] Primary osteoarthritis of right hip 11/06/2019 04/23/2020 Overview (11/06/2019): Added automatically from request for surgery [id number] Encounters Date Type Department Care Team Description 11/30/2024 5:00 PM CDT Office Visit [facility] at [address] [phone] Jay Stanley NP Facial abscess (Primary Dx) 11/29/2024 4:15 PM CDT Office Visit [facility] at [address] [phone] Jay Stanley NP Abscess of face (Primary Dx) 11/21/2024 11:00 AM CDT Office Visit [facility] [address] [place] [address] Elise Cadet NP Type 2 diabetes mellitus with hyperglycemia, without long-term current use of insulin (HCC) (Primary Dx); Hyperlipidemia associated with type 2 diabetes mellitus (HCC) 11/16/2024 Telephone [facility] [address] [phone] Ewa Adams MD 10/23/2024 2:45 PM CDT Office Visit [facility] Pulmonary Christina [address] [place] [phone] Cammy Nravaez NP GORDO (obstructive sleep apnea) (Primary Dx); PLMD (periodic limb movement disorder) 10/23/2024 Telephone [facility] [address] [phone] Jagdeep Guerrero MD Orders Only 09/27/[address] [phone] Jagdeep Guerrero MD Med Management from Last 3 Months Surgical History Surgery Date Site/Laterality Comments HYSTERECTOMY APPENDECTOMY GALLBLADDER SURGERY EYE SURGERY NOSE SURGERY LUMBAR FUSION THYROIDECTOMY, PARTIAL CHOLECYSTECTOMY HIP ARTHROPLASTY Right JOINT REPLACEMENT TUBAL LIGATION 1978 BLADDER SURGERY 2003 SPINE SURGERY 2018 CATARACT EXTRACTION 2008 & 2013 Medical History Medical History Date Comments Gastric reflux GERD (gastroesophageal reflux disease) GORDO (obstructive sleep apnea) 06/16/2022 Cataract 2008 & 2014 Kidney stone 2004 Arthritis 2000 Family History Medical History Relation Name Comments Arthritis Father Blaine COPD Father Blaine Diabetes Father Blaine Heart attack Father Blaine Heart disease Father Blaine Hypertension Father Blaine Arthritis Mother Tonya Hearing loss Mother Tonya Heart attack Mother Tonya Heart disease Mother Tonya Arthritis Sister 1 Edward Arthritis Sister 2 Verna Relation Name Status Comments Father Blaine Alive Mother Tonya Alive Sister 1 Edward Alive Sister 2 Verna Alive Social History Tobacco Use Types Packs/Day Years [...] on file Legal Sex Female 6:28 AM IT ARCHITECT Gender Identity Not on file Sexual Orientation [...] (184 lb) 11/30/2024 5:00 PM CDT Height 162.6 cm (5' 4.02) 11/21/2024 10:48 AM C DT Body Mass Index 31.57 11/21/2024 10:48 AM CDT Plan of Treatment Health Maintenance Due Date Last Done Comments Hepatitis C Screening 1950 Osteoporosis Screening-Bone Density Scan 1950 Dilated Eye Exam 1948 DTaP/Tdap/Td Vaccine (1 - Tdap) 1959 Hepatitis B Screening 1966 Zoster Vaccine (1 of 2) 1998 Well Visit 65+ 2013 Pneumococcal vaccine 65+ (2 of 2 - PCV) 01/09/2022 01/09/2021, 02/05/2014 Covid-19 Vaccine (4 - 2024-2 6 season) 2024 02/02/2021, 06/21/2020, 05/24/2020 Influenza Vaccine (#1) 2024 11/19/2023, 2013 Depression Screening 11/15/2024 11/16/2023 Fall Risk Assessment 11/15/2024 11/16/2023, 12/26/19 Hemoglobin A1C 05/21/2025 11/21/2024, 05/04/2024, 05/29/2024, Additional history exists Albumin Creatinine Ratio, Urine 05/29/2025 , 11/16/2023 eGFR 05/29/2025 05/29/2024, 03/09, 12/26/2019, Additional history exists Lipid Panel 06/29/2025 06/29/2024, 05/29/2024 Foot Exam 11/21/2025 11/21/2024, 11/16/2023 Medical Devices Implanted Type Area [employer] And Shrub Technician Device Identifier Shelf Expiration Date Model / Serial / Lot [employer] [id number] [place] 52mm Sector Hip Shell Acetabular Gription Sterile Latex Free - [id number] Implanted:Qty: 1 on 12/25/2019 by Daniel Tariq MD at [facility] Right: Hip [employer] 10/05/2029 [id number] / / [id number] [employer] [id number] [place]chard 52mm 36mm Hip Neutral Liner Acetabular Altrx Sterile Latex Free - [id number] Implanted:Qty: 1 on 12/25/2019 by Daniel Tariq MD at [facility] Right: Hip [employer] 10/05/2024 [id number] / / [id number] [employer] [id number] Actis 105mm Collar Hip 5 High Offset Stem Femoral - [id number] Implanted:Qty: 1 on 12/25/2019 by Daniel Tariq MD at [facility] Right: Hip [employer] 09/04/2029 [id number] / / [id number] [employer] [id number] Articul/Salvador 36mm Cementless Hip +1.5mm 12/14 Taper Head Femoral Latex Free - [id number] Implanted:Qty: 1 on 12/25/2019 by Daniel Tariq MD at [facility] Right: Hip [employer] 10/05/2024 [id number] / / [id number] [employer] [id number] [place] 52mm 36mm Hip Neutral Liner Acetabular Altrx Sterile Latex Free - [id number] Implanted:Qty: 1 on 04/08/2020 by Daniel Tariq MD at [facility] Left: Hip [employer] 01/05/2025 [id number] / / [id number] [employer] [id number] [place] 52mm Sector Hip Shell Acetabular Gription Sterile Latex Free - [id number] Implanted:Qty: 1 on 04/08/2020 by Daniel Tariq MD at [facility] Left: Hip [employer] 01/05/2030 [id number] / / [id number] [employer] [id number] Actis [id number] Mm Collar Hip 6 High Offset Stem Femoral - [id number] Implanted:Qty: 1 on 04/08/2020 by Daniel Tariq MD at [facility] Left: Hip [employer] 02/04/2030 [id number] / / [id number] [employer] [id number] Articul/[place] 36mm Cementless Hip +1.5mm 12/14 Taper Head Femoral Latex Free - [id number] Implanted:Qty: 1 on 04/08/2020 by Daniel Tariq MD at [facility] Left: Hip [employer] 02/04/2025 [id number] / / [id number] Procedures Procedure Name Priority Date/Time Associated Diagnosis Comments POCT HEMOGLOBIN A1C Routine 11/21/2024 1 1:00 AM CDT Type 2 diabetes mellitus with hyperglycemia, without long-term current use of insulin (HCC) POCT GLUCOSE Routine 11/21/2024 10:53 AM CDT Type 2 diabetes mellitus with hyperglycemia, without long-term current use of insulin (HCC) LIPID PANEL Routine 06/29/2024 EGFR Routine 05/29/2024 11:39 AM CDT Type 2 diabetes mellitus with hyperglycemia, without long-term current use of insulin ([facility]) Hyperlipidemia associated with type 2 diabetes mellitus ([facility]) ALBUMIN CREATININE RATIO, URINE Routine 05/29/2024 11:39 AM CDT Type 2 diabetes mellitus with hyperglycemia, without long-term current use of insulin (HCC) from Last 3 Months or Most Recently Relevant to Health Maintenance Results * (ABNORMAL) POCT hemoglobin A1c (11/21/2024 11:00 AM CDT) [facility] Hemoglobin A1C, POC 6.9(A) 4.0 - 5.6 % Blood 11/21/2024 11:0 0 AM CDT Elise Cadet NP POINT OF CARE TEST ORDERA BLES Final Result * POCT glucose (11/21/2024 10:53 AM CDT) [facility] Glucose Blood, POC 157 Normal Fasting 70 - 100, Random <200 mg/dL Blood 11/21/2024 10:5 3 AM CDT Elise Cadet NP POINT OF CARE TEST ORDERA BLES Final Result * Lipid panel (06/29/2024) [facility] SCRIBED Cholesterol, Total 144 30 - 199 mg/dL [facility] Triglycerides 114 <=149 mg/dL [facility] HDL 52 >=40 mg/dL [facility] LDL 72 <=129 mg/dL [facility] Non-HDL Cholesterol 92 NONE mg/dL [facility] Total Cholesterol/HDL Ratio 0 NONE [facility] Blood 06/29/2024 Historical Provider LAB BLOOD ORDERABLES Chelsea l Result [facility] * eGFR (05/29/2024 11:39 AM CDT) [facility] eGFR >90 >=60 mL/min/1. 73 m2 Comment: Interpretive Data Reference Interval Normal >/= 90 mL/min/1.73m2 Mildly decreased* 60 - 89 mL/min/1.73m2 Mildly to moderately decreased 45 - 59 mL/min/1.73m2 Moderately to severely decreased 30 - 44 mL/min/1.73m2 Severely decreased 15 - 29 mL/min/1.73m2 Kidney Failure < 15 mL/min/1.73m2 *Relative to young adult level Estimated glomerular filtration rate is determined by the 2020 CKD-EPI equation recommended by the National Kidney Foundation (A Unifying Approach to GFR Estimation: Recommendations of the NKF-ASK Task Force on Reassessing the Inclusion of Race in Diagnosing Kidney Disease, JASN 2020). The CKD-EPI equation should not be used for patients with unstable renal function and has not been validated in children and those over 70. Current interpretive data was last reviewed 2021. Blood 05/29/2024 11:3 9 AM CDT 05/29/2024 4:31 PM CDT us Ewa Jerome MD LAB BLOOD ORDERABLE S Final Result Performing Organization Address [facility] Co de Phone Number MIKE ZALDIVAR [phone] [address] [place], [place] [phone] * Albumin Creatinine Ratio, Urine (05/29/2024 11:39 AM CDT) Albumin Ur <12.0 mg/L Comment: Interpretive Data No reference range established. Current interpretive data was last revised 2018. Creatinine Ur 39.6 mg/dL MIKE ZALDIVAR Comment: Interpretive Data No reference range established. Current interpretive data was last revised 2018. Albumin Creatinine Ratio, Ur See Comment 1 - 29 MIKE ZALDIVAR Comment:Unable to calculate Urine 05/29/2024 11:3 9 AM CDT 05/29/2024 4:18 PM CDT us Ewa Jerome MD LAB URINE ORDERABLE S Final Result Performing Organization Address City/[facility] Co de Phone Number MIKE ZALDIVAR [phone] [address] [place] [address] from Last 3 Months or Most Recently Relevant to Health Maintenance Insurance [employer] MEDICARE [facility] Advance Directives For more information, please contact: [phone] * Full Code (Latest Code Status on File) Date Activated Date Inactivated Comments 04/08/2020 10:35 AM 04/08/2020 7:22 PM * Full Code Date Activated Date Inactivated Comments 12/25/2019 1:27 PM 12/26/2019 5:47 PM Care Teams Metallurgical Laboratory Assistant Relationship Specialty Start Date End Date Ketan Lei DO PCP - General Internal Medicine 05/21/24 Daniel Tariq MD Surgeon Orthopedic Surgery 12/26/19 Sophy Steven PA Orthopedic Surgery 04/08/20
[2024-11-30 18:05] VITALS: BP 135/97; PULSE 72; RESP 18; TEMP 36.7; O2SAT 99
== END 2024-11-30 20:52 | disposition left against medical advice (07) ==
LOC: ANHED 19:44
PROVIDERS: PCP Internal Medicine
DX: K13.0 Diseases of lips (principal)
CPT/HCPCS: 99199

== ENCOUNTER 2024-11-30 19:59 | Emergency (ER) | payer OTHER, SELFPAY ==
--- OUTSIDE RECORDS SUMMARY | 2017-05-17 08:15 | XMS_ITS | Continuity of Care Document ---
Author Organization [facility] Address [address] [place] [address] Phone Care Team Providers Care Cone Treater Name Role Phone Pancho Doe MD Unavailable Unavailable Advance Directives Directive Yes / No Effective Date File Name No Information Encounters Encounter Description Practice Location Reason(s) For Visit Diagnoses Date Provider Providers Copied on Encounter [facility], [address], [place], [place], [address], tel:[phone] [facility] No Information Nader Deleon. [address], [place], [place], [address], [place]. tel:[phone] Referring Provider: Fadi Persaud, [address], [place], [address]. tel:[phone] Family History Family Member Type Diagnosis Age At Onset No Information Payers Payer name Insurance type Covered green party ID Authoriza tion(s) [employer] OPEN ACCESS HMO PPO POS [place] [id number] Social History Type Description Quantity Date Captured [...]
--- OUTSIDE RECORDS SUMMARY | 2017-05-17 08:15 | XMS_ITS | Continuity of Care Document ---
Author Organization [facility] Address [address] [place] [address] Phone Care Team Providers Care Senior Safety Support Manager Name Role Phone Pancho Doe MD Unavailable Unavailable Advance Directives Directive Yes / No Effective Date File Name No Information Encounters Encounter Description Practice Location Reason(s) For Visit Diagnoses Date Provider Providers Copied on Encounter [facility], [address], [place], [place], [address], tel:[phone] [facility] No Information Nader Deleon. [address], [place], [place], [address], [place]. tel:[phone] Referring Provider: Fadi Persaud, [address], [place], [address]. tel:[phone] Family History Family Member Type Diagnosis Age At Onset No Information Payers Payer name Insurance type Covered democrat ID Authoriza tion(s) [employer] OPEN ACCESS HMO PPO POS [place] [id number] Social History Type Description Quantity Date Captured [...]
--- OUTSIDE RECORDS SUMMARY | 2024-11-29 16:15 | XMS_ITS | Encounter Summary ---
Author Organization [facility] Healthcare Address [address] [place] [address] Care Team Providers Care Hemodialysis Patient Care Specialist Name Role Phone Daniel Tariq MD Unavailable [phone] Sophy Steven Unavailable [phone] Ketan Lei DO Primary Care Provider [phone] Reason for Visit * Reason Comments Mass Right top lip, red, sore, swollen, unable to bite on that side 1 week Encounter Details Date Type Department Care Team (Late st Contact Info) Description 11/29/2024 4:15 PM CDT Office Visit [facility] at [address] [address] Jay Stanley NP [address] [place] [address] [address] [place] [address] Abscess of face (Primary Dx) Social History Tobacco Use Types Packs/Day Years Used Date Smoking Tobacco: Former Smokeless Tobacco: Never Alcohol Use Standard Drinks/Week Comments Yes 0 (1 standard drink = 0.6 oz pur e alcohol) occasionally PHQ-2 Answer Date Recorded PHQ-2 Total Score (If total score is 3 or more points, staff should administer the PHQ-9) 0 11/16/2023 Comments No Sex and Gender Information Value Date Recorded Sex Assigned at Not on file 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 Gender Identity Not on file Sexual Orientation Not on file documented as of this encounter Last Filed Vital Signs Vital Sign Reading Time Taken Comments Blood Pressure 112/58 11/29/2024 3:58 PM CDT Pulse 74 11/29/2024 3:58 PM CDT Temperature 36.8 C (98.3 F) 11/29/2024 3:58 PM CDT Respiratory Rate 18 11/29/2024 3:58 PM CDT Oxygen Saturation 97% 11/29/2024 3:58 PM CDT Inhaled Oxygen Concentration - - Weight 83.9 kg (184 lb 14.4 oz) 11/29/2024 3:58 PM CDT Height - - Body Mass Index 31.72 11/21/2024 10:48 AM CDT documented in this encounter Ordered Prescriptions Prescription Sig Dispense Quantity Refills Last Filled Start Date End Date mupirocin (BACTROBAN) 2 % ointmentIndication s:Abscess of face Apply topically 3 (three) times a day for 10 days 22 g 11/29/2024 5 doxycycline (VIBRAMYCIN) 100 mg capsuleIndications :Abscess of face Take 1 tablet/capsule (100 mg total) by mouth 2 (two) times a day for 7 days 14 tablet/capsule 11/29/2024 5 documented in this encounter Progress Notes * Jay Stanley NP - 11/29/2024 4:15 PM CDT Images from the original note were not included. Subjective/Objective Patient ID: Sheridan King is a 74 y.o. female. This patient has verbally consented to recording this visit in order to utilize AI technology in generating this note. Chief Complaint Mass (Right top lip, red, sore, swollen, unable to bite on that side /1 week ) History of Present Illness Sheridan King is a 74 year old female who presents with a growing lesion on her lip causing dental sensitivity. The lesion on her lip began approximately one week ago, initially appearing as a pimple. It has since increased in size and is causing sensitivity in her teeth, making it difficult to bite on that side. She recalls a similar occurrence last year on her nose, which required antibiotic treatment. There is no trauma to the area. She has allergies to mercury and Nasonex. Review of Systems All other systems reviewed and are negative. Physical Exam Physical Exam Vitals and nursing note reviewed. Constitutional: General: She is not in acute distress. Appearance: Normal appearance. She is not ill-appearing, toxic-appearing or diaphoretic. HENT: Head: Comments: Oral mucosa appears normal. Mouth/Throat: Lips: [place]. Mouth: Mucous membranes are moist. Dentition: No gingival swelling, dental caries or dental abscesses. Pharynx: Oropharynx is clear. Uvula midline. Tonsils: 0 on the right. 0 on the left. Cardiovascular: Rate and Rhythm: Normal rate. Pulmonary: Effort: Pulmonary effort is normal. Skin: General: Skin is warm and dry. Capillary Refill: Capillary refill takes less than 2 seconds. Neurological: Mental Status: She is alert and oriented to person, place, and time. Gait: Gait normal. Vitals: 11/29/24 1558 BP: 112/58 Pulse: 74 Resp: 18 Temp: 36.8 ??C (98.3 ??F) SpO2: 97% Weight: 83.9 kg (184 lb 14.4 oz) No results found. Past Medical History: Diagnosis Date Arthritis 1999 Cataract 2008 & 2013 Gastric reflux GERD (gastroesophageal reflux disease) Kidney stone 2003 GORDO (obstructive sleep apnea) 06/16/2022 Current Outpatient Medications: atorvastatin (LIPITOR) 10 mg tablet, Take 1 tablet (10 mg total) by mouth daily, Disp: 90 tablet, Rfl: 3 cholecalciferol (VITAMIN D-3) 1,000 unit capsule, , Disp: , Rfl: citalopram (CeleXA) 20 mg tablet, Take 1 tablet (20 mg total) by mouth daily, Disp: , Rfl: cycloSPORINE (RESTASIS) 0.05 % ophthalmic emulsion, , Disp: , Rfl: fluorometholone (FML) 0.1 % ophthalmic suspension, INSTILL 1 DROP INTO BOTH EYES 3 TIMES DAILY, Disp: , Rfl: metFORMIN (GLUCOPHAGE) 500 mg tablet, Take 1 tablet (500 mg total) by mouth 2 (two) times a day with meals, Disp: 180 tablet, Rfl: 3 multivitamin capsule, Take 1 capsule by mouth daily, Disp: , Rfl: omeprazole (PriLOSEC) 20 mg capsule, Take 1 capsule (20 mg total) by mouth daily, Disp: , Rfl: potassium gluconate 600 mg (99 mg) tablet, Take by mouth 650 mg, Disp: , Rfl: VITAMIN B COMPLEX, , Disp: , Rfl: doxycycline (VIBRAMYCIN) 100 mg capsule, Take 1 tablet/capsule (100 mg total) by mouth 2 (two) times a day for 7 days, Disp: 14 tablet/capsule, Rfl: 0 mupirocin (BACTROBAN) 2 % ointment, Apply topically 3 (three) times a day for 10 days, Disp: 22 g, Rfl: 0 Allergies Allergen Reactions Mercury Rash Nasonex [Mometasone] Headache Social History Tobacco Use Smoking status: Former Smokeless tobacco: Never Substance and Sexual Activity Drug use: Never Sexual activity: Defer Alcohol Use: Not on file Past Surgical History: Procedure Laterality Date APPENDECTOMY BLADDER SURGERY 2003 CATARACT EXTRACTION 2008 & 2014 CHOLECYSTECTOMY EYE SURGERY GALLBLADDER SURGERY HIP ARTHROPLASTY Right HYSTERECTOMY JOINT REPLACEMENT LUMBAR FUSION NOSE SURGERY SPINE SURGERY 2018 THYROIDECTOMY, PARTIAL TUBAL LIGATION 1978 Procedures Assessment/Plan 1. Abscess of face (Primary) - doxycycline (VIBRAMYCIN) 100 mg capsule; Take 1 tablet/capsule (100 mg total) by mouth 2 (two) times a day for 7 days Dispense: 14 tablet/capsule; Refill: 0 - mupirocin (BACTROBAN) 2 % ointment; Apply topically 3 (three) times a day for 10 days Dispense: 22 g; Refill: 0 Results No results found for this or any previous visit (from the past 4 hours). Assessment & Plan Lip abscess Lip abscess with dental sensitivity and mastication difficulty. Treated with antibiotics due to growth and symptoms. - Prescribed doxycycline. Instructed to take with 8-ounce water and avoid vitamin D supplements. - Advised sun protection due to photosensitivity risk from doxycycline. - Provided topical treatment for direct application. - Instructed to apply warm moist compress to area for 10-15 minutes, four times daily. - Advised to return if condition worsens or does not improve within 48 to 72 hours. Education Keep area clean and dry. Wash daily with soap and water Go to ER or Seek immediate medical attention if you develop: A fast heart rate A fever >100.3F Severe pain Increased pain Rapidly worsening redness and swelling Red streaking coming from site of infection Increased drainage from site Nausea or vomiting A crackling or popping sound or sensation under the skin (this is called crepitus) A dark brown or black appearance to your skin Return to the [facility] or your Primary Care Physician if the red border around the infection area is increasing and/or if symptoms are not improving in 24-48 hours. Doxycycline should be taken with at least 240 mL (8 oz) of water to minimize the risk of the tabletgetting stuck in the esophagus and causing local erosions. Do not take vitamin-D while on doxycycline. Patients should stand or sit upright for at least 30 minutes and should eat a meal after taking medication. You can get a sunburn more easily while taking doxycycline. Wear sunscreen when out side, hat etc, to protect against sunburn Disposition Treatment plan including expectations, follow up, and return precautions discussed with patient/parent, verbalizes understanding. Medication dosage, use, and potential adverse reactions discussed with patient/parent. Advised to follow up with PCP if symptoms do not resolve as expected or sooner if condition worsens. Signs/symptoms warranting ER evaluation reviewed. Patient and/or guardian was given an opportunity to ask questions, questions answered. Jay Stanley NP This office note has been partially dictated using Alleantia software, and as a result portions of the record may have been created with this software. Occasional wrong-word or '[id number]' substitutions may have occurred due to the inherent limitations of voice recognition software. Read the chartcarefully and recognize, using context, where substitutions have occurred. Cosigned by Ezequiel Jesus MD at 11/30/2024 5:56 PM CDT documented in this encounter Plan of Treatment Not on file documented as of this encounter Visit Diagnoses Diagnosis Abscess of face- Primary Cellulitis and abscess of face documented in this encounter Care Teams Hemodialysis Patient Care Specialist Relationship Specialty Start Date End Date Ketan Lei DO PCP - General Internal Medicine 05/21/24 Daniel Tariq MD Surgeon Orthopedic Surgery 12/26/19 Sophy Steven PA Orthopedic Surgery 04/08/20 documented as of this encounter
--- OUTSIDE RECORDS SUMMARY | 2024-11-29 16:15 | XMS_ITS | Encounter Summary ---
Author Organization [facility] Healthcare Address [address] [place] [address] Care Team Providers Care Professor Of History Name Role Phone Daniel Tariq MD Unavailable [phone] Sophy Steven Unavailable [phone] Ketan Lei DO Primary Care Provider [phone] Reason for Visit * Reason Comments Mass Right top lip, red, sore, swollen, unable to bite on that side 1 week Encounter Details Date Type Department Care Team (Late st Contact Info) Description 11/29/2024 4:15 PM CDT Office Visit 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 Subjective/Objective Patient ID: Sheridan iKng is a 74 y.o. female. This patient [...] Comments: Oral mucosa appears normal. Mouth/Throat: Lips: [place]. Mouth: Mucous membranes are moist. Dentition: No [...] office note has been partially dictated using [employer] software, and as a result portions of the record may have been created with this software. Occasional wrong-word or '[id number]' substitutions may have occurred due to the [...] face documented in this encounter Care Teams Professor Of History Relationship Specialty Start Date End Date Ketan Lei DO PCP - General Internal Medicine 05/21/24 Daniel Tariq MD Surgeon Orthopedic Surgery 12/26/19 Sophy Steven PA Orthopedic Surgery 04/08/20 documented as of this encounter
--- OUTSIDE RECORDS SUMMARY | 2024-11-30 17:00 | XMS_ITS | Encounter Summary ---
Author Organization [facility] Healthcare Address [address] [place] [address] Care Team Providers Care Cooling Pan Tender Name Role Phone Daniel Tariq MD Unavailable [phone] Sophy Steven Unavailable [phone] Ketan Lei DO Primary Care Provider [phone] Reason for Visit * Reason Comments Abscess On the right upper l ip, swelling down to jaw line into neck can possibly feel another bump, has done everything she was instructed and last night started with a bump and this afternoon started swelling Encounter Details Date Type Department Care Team (Late st Contact Info) Description 11/30/2024 5:00 PM CDT Office Visit [facility] at [address] [address] Jay Stanley NP [address] [place] [address] [address] [place] [address] Facial abscess (Primary Dx) Social [...] on file 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 documented in this encounter Progress Notes * Jay Stanley NP - 11/30/2024 5:00 PM CDT Images from the original note were not included. Subjective/Objective Patient ID: Sheridan King is a 74 y.o. female. This patient has verbally consented to recording this visit in order to utilize AI technology in generating this note. Chief Complaint Abscess (On the right upper lip, swelling down to jaw line into neck can possibly feel another bump, has done everything she was instructed and last night started with a bump and this afternoon started swelling ) History of Present Illness Sheridan King is a 74 year old female who presents with a firm swelling on her neck and jaw pain. She noticed a firm swelling on her neck, described as 'pretty firm'. She has been applying gel and warm compresses throughout the afternoon. She began taking doxycycline yesterday, with two doses taken, one in the afternoon and one at bedtime, but there has been no improvement in symptoms since starting the antibiotic. No chills, sweats, body aches, nausea, or vomiting. Her jaw was tender last night, and her teeth were also tender. Today, the jaw tenderness has slightly improved. She has a history of an abscess on the same side of her face, which previously resulted in a large hole that is still healing. She recalls a past experience where an abscess related to a tooth infection spread, causing significant issues. Review of Systems All other systems reviewed and are negative. Physical Exam Physical Exam Vitals and nursing note reviewed. Exam conducted with a reporting coordinator present (pts ). Constitutional: General: She is not in acute distress. Appearance: Normal appearance. She is not ill-appearing. HENT: Head: Mouth/Throat: Comments: No oral lesions noted Cardiovascular: Rate and Rhythm: Normal rate. Pulmonary: Effort: Pulmonary effort is normal. Musculoskeletal: Cervical back: Normal range of motion. No rigidity. Normal range of motion. Skin: General: Skin is warm and dry. Capillary Refill: Capillary refill takes less than 2 seconds. Neurological: Mental Status: She is alert and oriented to person, place, and time. Gait: Gait normal. Vitals: 11/30/24 1700 BP: 151/75 Pulse: 70 Resp: 16 Temp: 36.7 ??C (98 ??F) SpO2: 98% Weight: 83.5 kg (184 lb) No results found. Past Medical History: Diagnosis [...] % ophthalmic emulsion, , Disp: , Rfl: doxycycline (VIBRAMYCIN) 100 mg capsule, Take 1 tablet/capsule (100 mg total) by mouth 2 (two) times a day for 7 days, Disp: 14 tablet/capsule, Rfl: 0 fluorometholone (FML) 0.1 % ophthalmic suspension, INSTILL 1 DROP INTO BOTH EYES 3 TIMES DAILY, Disp: , Rfl: metFORMIN (GLUCOPHAGE) 500 mg tablet, Take 1 tablet (500 mg total) by mouth 2 (two) times a day with meals, Disp: 180 tablet, Rfl: 3 multivitamin capsule, Take 1 capsule by mouth daily, Disp: , Rfl: mupirocin (BACTROBAN) 2 % ointment, Apply topically 3 (three) times a day for 10 days, Disp: 22 g, Rfl: 0 omeprazole (PriLOSEC) 20 mg capsule, Take 1 capsule (20 mg total) by mouth daily, Disp: , Rfl: potassium gluconate 600 mg (99 mg) tablet, Take by mouth 650 mg, Disp: , Rfl: VITAMIN B COMPLEX, , Disp: , Rfl: Allergies Allergen Reactions Mercury Rash Nasonex [Mometasone] [...] PARTIAL TUBAL LIGATION 1978 Procedures Assessment/Plan 1. Facial abscess (Primary) Results RADIOLOGY Assessment & Plan Facial cellulitis with concern for abscess Facial cellulitis on neck, firm and sore, worsening despite doxycycline. No visible abscess, concern for spread to bone, possible osteomyelitis. ER evaluation needed. - Continue doxycycline for MRSA coverage. - Recommend ER evaluation for imaging and blood work to assess bone involvement and bloodstream infection. - Discussed treating in clinic with ceftriaxone IM and adding cephalexin for additional coverage, versus going to ER, higher level of care for further evaluation and treatment, and to rule out osteomyelitis. Patient to go to ED. Patient's to take her to [facility] ED. - Provide print out of current medications and vitals for ER visit. Disposition Treatment plan including expectations, follow up, [...] office note has been partially dictated using My[employer] software, and as a result portions of the record may have been created with this software. Occasional wrong-word or '[id number]' substitutions may have occurred due to the [...] face documented in this encounter Care Teams Cooling Pan Tender Relationship Specialty Start Date End Date Ketan Lei DO PCP - General Internal Medicine 05/21/24 Daniel Tariq MD Surgeon Orthopedic Surgery 12/26/19 Sophy Steven PA Orthopedic Surgery 04/08/20 documented as of this encounter
--- OUTSIDE RECORDS SUMMARY | 2024-11-30 17:00 | XMS_ITS | Encounter Summary ---
Author Organization [facility] Healthcare Address [address] [place] [address] Care Team Providers Care Pest Control Technician Name Role Phone Daniel Tariq MD Unavailable [phone] Sophy Steven Unavailable [phone] Ketan Lei DO Primary Care Provider [phone] Reason for Visit * Reason Comments Abscess On the right upper l ip, swelling down to jaw line into neck can possibly feel another bump, has done everything she was instructed and last night started with a bump and this afternoon started swelling Encounter Details Date Type Department Care Team (Late st Contact Info) Description 11/30/2024 5:00 PM CDT Office Visit [facility] at [address] [address] Jay Stanley NP [address] [place] [address] [address] [place] [address] Facial abscess (Primary Dx) Social [...] on file 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 Exam conducted with a technology applications consultant present (pts ). Constitutional: General: She is [...] to ED. Patient's to take her to [facility] ED. - Provide print out of current [...] office note has been partially dictated using Solovis software, and as a result portions of the record may have been created with this software. Occasional wrong-word or '[id number]' substitutions may have occurred due to the [...] face documented in this encounter Care Teams Pest Control Technician Relationship Specialty Start Date End Date Ketan Lei DO PCP - General Internal Medicine 05/21/24 Daniel Tariq MD Surgeon Orthopedic Surgery 12/26/19 Sophy Steven PA Orthopedic Surgery 04/08/20 documented as of this encounter
--- OUTSIDE RECORDS SUMMARY | 2024-11-30 20:00 | XMS_ITS | Clinical Summary ---
Author Organization [facility] Medical Office Building B Address [address] [place] [address] Care Team Providers Care Power Nut Runner Operator Name Role Phone Daniel Tariq MD Unavailable [phone] Sophy Steven Unavailable Ketan Lei DO Primary Care Provider [phone] Allergies Active Allergy Reactions Criticality Noted Date [...] hyperglycemia, without long-term current use of insulin ([facility]) 1-2 x daily 100 each 3 4 11/22/19 25 Discontin ued(Patie nt Reported) OneTouch Verio test strips stripIndication s:Type 2 diabetes mellitus with hyperglycemia, without long-term current use of insulin ([facility]) Check 1-2 x daily 100 each 11 4 11/22/19 25 Discontin ued(Patie nt Reported) triamcinolone (NASACORT) 55 mcg nasal inhalerIndicati ons:Chronic sinusitis, unspecified location Administer 2 sprays into each nostril daily 16.9 mL 11 4 11/22/19 25 Discontin ued(Patie nt Reported) OneTouch Verio Flex meter miscIndications :Type 2 diabetes mellitus with hyperglycemia, without long-term current use of insulin ([facility]) USE DIRECTED 1 each 4 11/22/19 25 Discontin ued(Patie nt Reported) metFORMIN (GLUCOPHAGE) 500 mg tabletIndicatio ns:Type 2 diabetes mellitus with hyperglycemia, without long-term current use of insulin ([facility]) Take 1 tablet (500 mg total) by [...] DM eye exam October 2024; appt 11/22/24 [facility] in [place]. Letter sent to get copy of reports. [...] Atorvastatin 10mg. Last lipid panel: 06/29/24 LDL=72, PK=519. Assessment & Plan (11/16/2023 12:59 PM CDT): [...] 11/16/2023 Assessment & Plan (01/10/2024 2:28 PM MARKETING CONTENT MANAGER): Nasal saline spray (Simply saline, Little Remedies, [place], [place]) 2 second sprays or 2 squeezes into each nostril while looking down over the sink, do not need to sniff in. Continue Nasacort at 1 spray into each nostril for one month and then try to stop and just continue the nasal saline 1-2 times daily Assessment & Plan (11/16/2023 3:22 PM CDT): Nasal saline spray (Simply saline, Little Remedies, [place], [place]) 2 second sprays or 2 squeezes into [...] 2 brochures that are published by the [place] [employer]. I also discussed sleep restriction therapy. Snoring 03/17/2022 06/16/2022 Assessment & Plan (03/17/2022 3:34 PM MARKETING CONTENT MANAGER): The patient presents with snoring, witnessed apneas and daytime fatigue. She also has difficulty with insomnia at times. I have recommended proceeding with a nocturnal polysomnogram with a split night protocol if necessary and no MSLT. She will follow-up here in 3 months. Primary osteoarthritis of left hip 04/04/2020 04/23/2020 Overview (04/04/2020): Added automatically from request for surgery [id number] Primary osteoarthritis of right hip 11/06/2019 04/23/2020 Overview (11/06/2019): Added automatically from request for surgery [id number] Encounters Date Type Department Care Team Description 11/30/2024 5:00 PM CDT Office Visit [facility] at [address] [phone] Jay Stanley NP Facial abscess (Primary Dx) 11/29/2024 4:15 PM CDT Office Visit [facility] Medical [facility]ient Care at [address] [phone] Jay Stanley NP Abscess of face (Primary Dx) 11/21/2024 11:00 AM CDT Office Visit [facility] End[facility]ology [address] [place] [address] Elise Cadet NP Type 2 diabetes mellitus with hyperglycemia, without long-term current use of insulin (HCC) (Primary Dx); Hyperlipidemia associated with type 2 diabetes mellitus (HCC) 11/16/2024 Telephone [facility] Special[facility] [address] [address] Ewa Adams MD 10/23/2024 2:45 PM CDT Office Visit [facility] Pulmonary Christina [address] [place] [phone] Cammy Narvaez NP GORDO (obstructive sleep apnea) (Primary Dx); PLMD (periodic limb movement disorder) 10/23/2024 Telephone [facility] Pulmonary [address] [phone] Jagdeep Guerrero MD Orders Only 09/27/[address] [phone] Jagdeep Guerrero MD Med Management [...] on file Legal Sex Female 6:28 AM MARKETING CONTENT MANAGER Gender Identity Not on file Sexual [...] 11/21/2024, 11/16/2023 Medical Devices Implanted Type Area Wholesale Diamond Broker Device Identifier Shelf Expiration Date Model / Serial / Lot Depuy [employer] Inc [id number] [place] 52mm Sector Hip Shell Acetabular Gription Sterile Latex Free - [id number] Implanted:Qty: 1 on 12/25/2019 by Daniel Tariq MD at [facility] Right: Hip [employer]uy [employer] 10/05/2029 [id number] / / [id number] Depuy [employer] [id number] [place] 52mm 36mm Hip Neutral Liner Acetabular Altrx Sterile Latex Free - [id number] Implanted:Qty: 1 on 12/25/2019 by Daniel Tariq MD at [facility] Right: Hip [employer] 10/05/2024 [id number] / / [id number] Depuy [employer] [id number] Actis 105mm Collar Hip 5 High Offset Stem Femoral - [id number] Implanted:Qty: 1 on 12/25/2019 by Daniel Tariq MD at [facility] Right: Hip [employer] 09/04/2029 [id number] / / [id number] Depuy [employer] [id number] Articul/[place] 36mm Cementless Hip +1.5mm 12/14 Taper Head Femoral Latex Free - [id number] Implanted:Qty: 1 on 12/25/2019 by Daniel Tariq MD at [facility] Right: Hip [employer] 10/05/2024 [id number] / / [id number] Depuy [employer] [id number] [place] 52mm 36mm Hip Neutral Liner Acetabular Altrx Sterile Latex Free - [id number] Implanted:Qty: 1 on 04/08/2020 by Daniel Tariq MD at [facility] Left: Hip [employer] 01/05/2025 [id number] / / [id number] Depuy [employer] [id number] [place] 52mm Sector Hip Shell Acetabular Gription Sterile Latex Free - [id number] Implanted:Qty: 1 on 04/08/2020 by Daniel Tariq MD at [facility] Left: Hip [employer] 01/05/2030 [id number] / / [id number] Depuy [employer] [id number] Actis L107 Mm Collar Hip 6 High Offset Stem Femoral - [id number] Implanted:Qty: 1 on 04/08/2020 by Daniel Tariq MD at [facility] Left: Hip [employer] 02/04/2030 [id number] / / [id number] Depuy [employer] [id number] Articul/[place] 36mm Cementless Hip +1.5mm 12/14 Taper Head Femoral Latex Free - [id number] Implanted:Qty: 1 on 04/08/2020 by Daniel Tariq MD at [facility] Left: Hip [employer] 02/04/2025 [id number] / / [id number] Procedures Procedure Name Priority Date/Time Associated Diagnosis [...] hyperglycemia, without long-term current use of insulin ([facility]) Hyperlipidemia associated with type 2 diabetes mellitus ([facility]) ALBUMIN CREATININE RATIO, URINE Routine 05/29/2024 11:39 AM CDT Type 2 diabetes mellitus with hyperglycemia, without long-term current use of insulin (HCC) from Last 3 Months or Most Recently Relevant to Health Maintenance Results * (ABNORMAL) POCT hemoglobin A1c (11/21/2024 11:00 AM CDT) [facility] Hemoglobin A1C, POC 6.9(A) 4.0 - 5.6 % Blood 11/21/2024 11:0 0 AM CDT Elise Cadet NP POINT OF CARE TEST ORDERA BLES Final Result * POCT glucose (11/21/2024 10:53 AM CDT) [facility] Glucose Blood, POC 157 Normal Fasting 70 - 100, Random <200 mg/dL Blood 11/21/2024 10:5 3 AM CDT Elise Cadet NP POINT OF CARE TEST ORDERA BLES Final Result * Lipid panel (06/29/2024) [facility] SCRIBED Cholesterol, Total 144 30 - 199 mg/dL [facility] Triglycerides 114 <=149 mg/dL [facility] SCRIB[facility] HDL 52 >=40 mg/dL [facility] SCRIBED LDL 72 <=129 mg/dL [facility] Scribed Non-HDL Cholesterol 92 NONE mg/dL [facility] SCRIBED Total Cholesterol/HDL Ratio 0 NONE [facility] Blood 06/29/2024 Historical Provider LAB BLOOD ORDERABLES Chelsea l Result [facility] * eGFR (05/29/2024 11:39 AM CDT) [facility] eGFR >90 >=60 mL/min/1. 73 m2 Comment: [...] ORDERABLE S Final Result Performing Organization Address [facility] Co de Phone Number MIKE ZALDIVAR [address] [place], [place] [phone] * Albumin Creatinine Ratio, Urine (05/29/2024 11:39 [...] ORDERABLE S Final Result Performing Organization Address City/[facility] Co de Phone Number MIKE ZALDIVAR [phone] [address] from Last 3 Months or Most Recently Relevant to Health Maintenance Insurance AETNA MEDICARE [facility] Advance Directives For more information, please contact: [phone] * Full Code (Latest Code Status on File) Date Activated Date Inactivated Comments 04/08/2020 10:35 AM 04/08/2020 7:22 PM * Full Code Date Activated Date Inactivated Comments 12/25/2019 1:27 PM 12/26/2019 5:47 PM Care Teams Power Nut Runner Operator Relationship Specialty Start Date End Date Ketan Lei DO PCP - General Internal Medicine 05/21/24 Daniel Tariq MD Surgeon Orthopedic Surgery 12/26/19 Sophy Steven PA Orthopedic Surgery 04/08/20
[2024-11-30 20:03] VITALS: BP 142/65; PULSE 68; RESP 18; TEMP 36.6; O2SAT 98
--- NOTE | 2024-11-30 20:22 | ED.SKABFB ---
HPI - Skin/Abscess/Foreign Bdy General Chief complaint: Skin/Abscess/Foreign Body Stated complaint: abscess upper lip Time Seen by Provider: 11/30/24 20:08 Source: patient and family Mode of arrival: ambulatory Limitations: no limitations History of Present Illness HPI narrative: this is a 74-year-old female with history of diabetes has an abscess located on her right upper lip area with streaking into her lower chin with a tender submandibular gland with no fever chills no shortness of breath no nausea vomiting the area is firm nonfluctuant with no drainage red and tender to touch. complaint: abscess/boil Onset (ago): day(s) Location: face Related Data Home Medications ?Medication ?Instructions ?Recorded ?Confirmed ?Last Taken ?Type yzzkoaxi-syd-isonco 5 mg-zeaxanth 1 cap PO DAILY 03/23/19 01/05/24 01/20/23 History 1 mg-bilberry 7.5 mg-herbal capsule ([facility] Formula) potassium gluconate 600 mg (99 mg) 600 mg PO DAILY 02/18/22 01/05/24 01/20/23 History tablet atorvastatin 10 mg tablet mg PO 01/05/24 01/05/24 Unknown History Allergies Allergy/AdvReac Type Severity Reaction Status Date / Time mercury (elemental) AdvReac Intermediate Redness of Verified 11/30/24 20:07 Skin mometasone furoate AdvReac Intermediate Migraine Verified 11/30/24 20:07 Review of Systems Review of Systems: All systems reviewed & are unremarkable except as noted in HPI and below PMFSH Past Medical History Medical History Hyperglycemia History of broken nose (~2018) Right thyroid nodule Torn tendon (~2008) left leg 2009 Cataract Surgical History Surgical History History of hip replacement, total History of lumbar fusion (~2017) History of cholecystectomy (~2006) H/O bladder repair surgery (~2002) H/O foot surgery (~1997) H/O tubal ligation (~1977) History of appendectomy (~1964) Hx of tonsillectomy (~1960) Family History Family History Sibling Family history of arthritis Family history of lymphoma Mother No problems noted. Father No problems noted. Social History Social History Smoking status: Never smoker Second hand tobacco smoke exposure: No Alcohol intake: current Drinks per week: 1 Alcohol use details: occassionally Substance use: never Substance use type: does not use Do You Feel Safe in your Home?: Yes Lack of Transportation: No Lack of Food: Never True Current Housing: I Have Housing Concerned About Future Housing: No Difficulty Paying Gas/Electric Bills: No Difficulty Paying for Meds: No Currently Unemployed: No Education: High School Diploma/GED Difficulty w/ Childcare or Family Care: No Living arrangements: with family Occupation/Education: retired Additional occupation/education comments: [employer] Gender identity (if verbalized by the patient): Female Spiritual care concerns: No Exam Const: General: healthy appearing and no acute distress Nutritional Appearance: well nourished Orientation/consciousness: patient oriented x3 HENMT: Other: Nonfluctuant warm tender red area right upper lip Neck: Neck: normal visual inspection and lymphadenopathy Other: tender right submandibular gland and in Chest: Chest palpation & inspection: normal inspection of the chest Resp: Effort & Inspection: normal respiratory effort Auscultation: clear to auscultation bilaterally Cardio: Rate: regular rate Rhythm: regular rhythm GI: Auscultation: normal bowel sounds Skin: Wounds: wounds noted Course Course Emergency Course: patient received a dose of 1g IM ceftriaxone and 600mg PO Motrin and antibiotics and anti-inflammatories and the patient's local pharmacy. Vital Signs Vital signs: Vital Signs Temperature 36.6 C 11/30/24 20:03 Pulse Rate 68 11/30/24 20:03 Respiratory Rate 18 11/30/24 20:03 Blood Pressure 142/65 H 11/30/24 20:03 Pulse Oximetry 98 11/30/24 20:03 Oxygen Delivery Room Air 11/30/24 20:03 Temperature 36.6 C 11/30/24 20:03 Pulse Rate 68 11/30/24 20:03 Respiratory Rate 18 11/30/24 20:03 Blood Pressure 142/65 H 11/30/24 20:03 Pulse Oximetry 98 11/30/24 20:03 Oxygen Delivery Room Air 11/30/24 20:03 Critical Care Time Critical Care Time Critical Care Time: No Discharge Plan Discharge Clinical Impression: Abscess Patient Disposition: Home Condition: Stable Instructions: Antibiotic Form, Cellulitis (ED), Abscess (ED) Additional Instructions: advised to take medication as prescribed and to follow with primary care physician within 1 week if symptoms persist or worsen. Patient Language: Japanese Prescriptions: New amoxicillin-pot clavulanate [Augmentin] 500-125 mg tablet 1 tablet PO TID Qty: 30 0RF naproxen 500 mg tablet 500 mg PO BID Qty: 14 0RF Rx Instructions: take with meals No Action potassium gluconate 600 mg (99 mg) tablet 600 mg PO DAILY [facility] Formula 5-1-7.5 mg capsule 1 cap PO DAILY atorvastatin 10 mg tablet PO citalopram 20 mg tablet 20 mg PO DAILY Qty: 90 3RF metformin 500 mg tablet 500 mg PO BIDWMEAL Qty: 180 3RF omeprazole 20 mg capsule,delayed release(DR/EC) 20 mg PO DAILY Qty: 90 3RF Follow-up/Referrals: Ketan Lei DO [Primary Care Provider, Internal Medicine] Time of Disposition: 20:25
[2024-11-30] MEDS: cefTRIAXone 1 GM, LIDOCAINE 1% LOCAL INJ 2.1 ML IM (20:32)
[2024-11-30] MEDS: IBUPROFEN 600 MG TABLET PO (20:32)
--- OUTSIDE RECORDS SUMMARY | 2024-11-30 20:46 | XMS_ITS | Clinical Summary ---
Author Organization [facility] Medical Office Building B Address [address] [place] [address] Care Team Providers Care Neonatal Icu Coordinator Name Role Phone Daniel Tariq MD Unavailable [phone] Sophy Steven Unavailable Ketan Lei DO Primary Care Provider [phone] Allergies Active Allergy Reactions Criticality Noted Date [...] hyperglycemia, without long-term current use of insulin ([facility]) 1-2 x daily 100 each 3 4 11/22/19 25 Discontin ued(Patie nt Reported) OneTouch Verio test strips stripIndication s:Type 2 diabetes mellitus with hyperglycemia, without long-term current use of insulin ([facility]) Check 1-2 x daily 100 each 11 4 11/22/19 25 Discontin ued(Patie nt Reported) triamcinolone (NASACORT) 55 mcg nasal inhalerIndicati ons:Chronic sinusitis, unspecified location Administer 2 sprays into each nostril daily 16.9 mL 11 4 11/22/19 25 Discontin ued(Patie nt Reported) OneTouch Verio Flex meter miscIndications :Type 2 diabetes mellitus with hyperglycemia, without long-term current use of insulin ([facility]) USE DIRECTED 1 each 4 11/22/19 25 Discontin ued(Patie nt Reported) metFORMIN (GLUCOPHAGE) 500 mg tabletIndicatio ns:Type 2 diabetes mellitus with hyperglycemia, without long-term current use of insulin ([facility]) Take 1 tablet (500 mg total) by [...] exam October 2024; appt 11/22/24 [facility] in [place]. Letter sent to get copy of reports. [...] Atorvastatin 10mg. Last lipid panel: 06/29/24 LDL=72, QE=172. Assessment & Plan (11/16/2023 12:59 PM CDT): [...] 11/16/2023 Assessment & Plan (01/10/2024 2:28 PM REVENUE CYCLE ANALYST): Nasal saline spray (Simply saline, Little Remedies, [place], [place]) 2 second sprays or 2 squeezes into each nostril while looking down over the sink, do not need to sniff in. Continue Nasacort at 1 spray into each nostril for one month and then try to stop and just continue the nasal saline 1-2 times daily Assessment & Plan (11/16/2023 3:22 PM CDT): Nasal saline spray (Simply saline, Little Remedies, [place], [place]) 2 second sprays or 2 squeezes into [...] 2 brochures that are published by the [place] [employer]. I also discussed sleep restriction therapy. Snoring 03/17/2022 06/16/2022 Assessment & Plan (03/17/2022 3:34 PM REVENUE CYCLE ANALYST): The patient presents with snoring, witnessed apneas and daytime fatigue. She also has difficulty with insomnia at times. I have recommended proceeding with a nocturnal polysomnogram with a split night protocol if necessary and no MSLT. She will follow-up here in 3 months. Primary osteoarthritis of left hip 04/04/2020 04/23/2020 Overview (04/04/2020): Added automatically from request for surgery [id number] Primary osteoarthritis of right hip 11/06/2019 04/23/2020 Overview (11/06/2019): Added automatically from request for surgery [id number] Encounters Date Type Department Care Team Description 11/30/2024 5:00 PM CDT Office Visit [facility] Medical Group Convenient Care at [address] [phone] Jay Stanley NP Facial abscess (Primary Dx) 11/29/2024 4:15 PM CDT Office Visit [facility] Medical [facility]ient Care at [address] [phone] Jay Stanley NP Abscess of face (Primary Dx) 11/21/2024 11:00 AM CDT Office Visit [facility] Diabetes and Endocrinology [address] [place] [address] Elise Cadet NP Type 2 diabetes mellitus with hyperglycemia, without long-term current use of insulin (HCC) (Primary Dx); Hyperlipidemia associated with type 2 diabetes mellitus (HCC) 11/16/2024 Telephone [facility] Specialists [address] [phone] Ewa Adams MD 10/23/2024 2:45 PM CDT Office Visit [facility] Pulmonary Christina [address] [place] [phone] Cammy Narvaez NP GORDO (obstructive sleep apnea) (Primary Dx); PLMD (periodic limb movement disorder) 10/23/2024 Telephone [facility]monary [address] [phone] Jagdeep Guerrero MD Orders Only 09/27/[address] [phone] Jagdeep Guerrero MD Med Management [...] file Legal Sex Female 6:28 AM REVENUE CYCLE ANALYST Gender Identity Not on file Sexual Orientation [...] 11/21/2024, 11/16/2023 Medical Devices Implanted Type Area Configuration Management Administrator Device Identifier Shelf Expiration Date Model / Serial / Lot Depuy [employer] [id number] [place] 52mm Sector Hip Shell Acetabular Gription Sterile Latex Free - [id number] Implanted:Qty: 1 on 12/25/2019 by Daniel Tariq MD at [facility] Right: Hip [employer] 10/05/2029 [id number] / / [id number] Dep[employer] [id number] [place] 52mm 36mm Hip Neutral Liner Acetabular Altrx Sterile Latex Free - [id number] Implanted:Qty: 1 on 12/25/2019 by Daniel Tariq MD at [facility] Right: Hip [employer] 10/05/2024 [id number] / / [id number] Depuy [employer] [id number] Actis 105mm Collar Hip 5 High Offset Stem Femoral - [id number] Implanted:Qty: 1 on 12/25/2019 by Daniel Tariq MD at [facility] Right: Hip [employer] 09/04/2029 [id number] / / [id number] [employer] Inc [id number] Articul/[place] 36mm Cementless Hip +1.5mm 12/14 Taper Head Femoral Latex Free - [id number] Implanted:Qty: 1 on 12/25/2019 by Daniel Tariq MD at [facility] Right: Hip [employer] 10/05/2024 [id number] / / [id number] Dep[employer] Inc [id number] [place] 52mm 36mm Hip Neutral Liner Acetabular Altrx Sterile Latex Free - [id number] Implanted:Qty: 1 on 04/08/2020 by Daniel Tariq MD at [facility] Left: Hip [employer] 01/05/2025 [id number] / / [id number] [employer] [id number] [place] 52mm Sector Hip Shell Acetabular Gription Sterile Latex Free - [id number] Implanted:Qty: 1 on 04/08/2020 by Daniel Tariq MD at [facility] Left: Hip [employer] 01/05/2030 [id number] / / [id number] Dep[employer] Inc [id number] Actis L107 Mm Collar Hip 6 High Offset Stem Femoral - [id number] Implanted:Qty: 1 on 04/08/2020 by Daniel Tariq MD at [facility] Left: Hip [employer] 02/04/2030 [id number] / / [id number] [employer] Inc [id number] Articul/[place] 36mm Cementless Hip +1.5mm 12/14 Taper Head Femoral Latex Free - [id number] Implanted:Qty: 1 on 04/08/2020 by Daniel Tariq MD at [facility] Left: Hip [employer] 02/04/2025 [id number] / / [id number] Procedures Procedure Name Priority Date/Time Associated Diagnosis [...] hyperglycemia, without long-term current use of insulin ([facility]) Hyperlipidemia associated with type 2 diabetes mellitus ([facility]) ALBUMIN CREATININE RATIO, URINE Routine 05/29/2024 11:39 AM CDT Type 2 diabetes mellitus with hyperglycemia, without long-term current use of insulin (HCC) from Last 3 Months or Most Recently Relevant to Health Maintenance Results * (ABNORMAL) POCT hemoglobin A1c (11/21/2024 11:00 AM CDT) [facility] Hemoglobin A1C, POC 6.9(A) 4.0 - 5.6 % Blood 11/21/2024 11:0 0 AM CDT Elise Cadet NP POINT OF CARE TEST ORDERA BLES Final Result * POCT glucose (11/21/2024 10:53 AM CDT) [facility] Glucose Blood, POC 157 Normal Fasting 70 - 100, Random <200 mg/dL Blood 11/21/2024 10:5 3 AM CDT Elise Cadet NP POINT OF CARE TEST ORDERA BLES Final Result * Lipid panel (06/29/2024) [facility] SCRIBED Cholesterol, Total 144 30 - 199 mg/dL [facility] Triglycerides 114 <=149 mg/dL [facility] HDL 52 >=40 mg/dL [facility]CR[facility] LDL 72 <=129 mg/dL [facility] Scribed Non-HDL Cholesterol 92 NONE mg/dL [facility] SCRIBED Total Cholesterol/HDL Ratio 0 NONE [facility] Blood 06/29/2024 Historical Provider LAB BLOOD ORDERABLES Chelsea l Result [facility] * eGFR (05/29/2024 11:39 AM CDT) [facility] eGFR >90 >=60 mL/min/1. 73 m2 [...] ORDERABLE S Final Result Performing Organization Address [facility] Co de Phone Number MIKE ZALDIVAR [address] Department [place], [place] [phone] * Albumin Creatinine Ratio, Urine (05/29/2024 11:39 [...] ORDERABLE S Final Result Performing Organization Address City/[facility] Co de Phone Number MIKE ZALDIVAR [address] [place] [place] [address] from Last 3 Months or Most Recently Relevant to Health Maintenance Insurance AETNA MEDICARE [facility] Advance Directives For more information, please contact: [phone] * Full Code (Latest Code Status on File) Date Activated Date Inactivated Comments 04/08/2020 10:35 AM 04/08/2020 7:22 PM * Full Code Date Activated Date Inactivated Comments 12/25/2019 1:27 PM 12/26/2019 5:47 PM Care Teams Neonatal Icu Coordinator Relationship Specialty Start Date End Date Ketan Lei DO PCP - General Internal Medicine 05/21/24 Daniel Tariq MD Surgeon Orthopedic Surgery 12/26/19 Sophy Steven PA Orthopedic Surgery 04/08/20
[2024-11-30 20:48] VITALS: BP 128/78; PULSE 78; RESP 20; TEMP 36.6; O2SAT 98
== END 2024-11-30 20:48 | disposition home or self-care (01) ==
LOC: CHSED 20:44
PROVIDERS: Emergency Provider Emergency Medicine; PCP Internal Medicine
DX: K13.0 Diseases of lips (principal); E11.9 Type 2 diabetes mellitus without complications
CPT/HCPCS: 96372; 99283; A9270; J0696; J2003

== ENCOUNTER 2025-01-01 11:13 | Outpatient (CLI) | payer OTHER, SELFPAY ==
--- NOTE | ~2025-01-01 | US_ITS ---
Clinical history:Nontoxic single thyroid nodule EXAM:Ultrasound thyroid TECHNIQUE:Multiple static grayscale images and color Doppler images of the thyroid gland were obtained. Comparisons:Ultrasound 12/26/2012 FINDINGS: Right thyroid lobe is surgically absent. Left thyroid lobe measures 5.5 x 2.2 x 2.0 cm and is heterogeneous and enlarged. Isthmus measures 0.7 cm and is heterogeneous and enlarged. There is a 1.6 x 1.2 x 1.3 cm solid nodule in the left mid thyroid lobe with a few echogenic foci likely calcifications. TR 5. A fine-needle aspiration is recommended. There is a 2.5 x 1.7 x 2.0 cm mixed solid and cystic nodule in the left thyroid lobe with a few scattered echogenic foci likely calcifications. TR 5. A fine- needle aspiration is recommended. IMPRESSION: 1.There is a 1.6 x 1.2 x 1.3 cm solid nodule in the left mid thyroid lobe with a few echogenic foci likely calcifications. TR 5. A fine-needle aspiration is recommended. 2.There is a 2.5 x 1.7 x 2.0 cm mixed solid and cystic nodule in the left thyroid lobe with a few scattered echogenic foci likely calcifications. TR 5. A fine-needle aspiration is recommended. 3. Right thyroid lobe is absent. 4. The left thyroid lobe and isthmus are heterogeneous and enlarged. Prominent vascular flow in the thyroid gland. Consider thyroiditis. Reviewed, dictated and finalized at location Q. IMPRESSION: 1.There is a 1.6 x 1.2 x 1.3 cm solid nodule in the left mid thyroid lobe with a few echogenic foci likely calcifications. TR 5. A fine-needle aspiration is r ecommended. 2.There is a 2.5 x 1.7 x 2.0 cm mixed solid and cystic nodule in the left thyro id lobe with a few scattered echogenic foci likely calcifications. TR 5. A fine -needle aspiration is recommended. 3. Right thyroid lobe is absent. 4. The left thyroid lobe and isthmus are heterogeneous and enlarged. Prominent vascular flow in the thyroid gland. Consider thyroiditis.
--- OUTSIDE RECORDS SUMMARY | 2025-01-01 12:47 | XMS_ITS | Clinical Summary ---
Author Organization [facility] Medical Office Building B Address [address] [place] [address] Care Team Providers Care Broiler Chef Or Cook Name Role Phone Daniel Tariq MD Unavailable [phone] Sophy Steven Unavailable Ketan Lei DO Primary Care Provider [phone] Allergies Active Allergy Reactions Criticality Noted Date [...] times a day for 7 days 14 tablet/capsul e 5 12/07/19 25 mupirocin (BACTROBAN) 2 % ointmentIndicat ions:Abscess of face Apply topically 3 (three) times a day for 10 days 22 g 5 12/10/19 25 Active Problems Problem Noted Date Diagnosed Date [...] DM eye exam October 2024; appt 11/22/24 [facility] in [place]. Letter sent to get copy of reports. [...] Atorvastatin 10mg. Last lipid panel: 06/29/24 LDL=72, IV=423. Assessment & Plan (11/16/2023 12:59 PM CDT): [...] 11/16/2023 Assessment & Plan (01/10/2024 2:28 PM CREPE SOLE SCOURER): Nasal saline spray (Simply saline, Little Remedies, [place], [place]) 2 second sprays or 2 squeezes into each nostril while looking down over the sink, do not need to sniff in. Continue Nasacort at 1 spray into each nostril for one month and then try to stop and just continue the nasal saline 1-2 times daily Assessment & Plan (11/16/2023 3:22 PM CDT): Nasal saline spray (Simply saline, Little Remedies, [place], [place]) 2 second sprays or 2 squeezes into [...] creatinine. Aftercare following left hip joint replacement [place] 04/23/2020 Aftercare following right hip joint replacement surgery 01/29/2020 Resolved Problems Problem Noted Date Diagnosed Date Resolved Date Primary insomnia 06/16/2022 08/12/2023 Assessment & Plan (08/13/2022 2:02 PM CDT): Her insomnia is improving with CPAP therapy. Assessment & Plan (06/16/2022 2:24 PM CDT): I did recommend cognitive behavioral therapy and I have given her the 2 brochures that are published by the [employer]. I also discussed sleep restriction therapy. Snoring 03/17/2022 06/16/2022 Assessment & Plan (03/17/2022 3:34 PM CREPE SOLE SCOURER): The patient presents with snoring, witnessed apneas and daytime fatigue. She also has difficulty with insomnia at times. I have recommended proceeding with a nocturnal polysomnogram with a split night protocol if necessary and no MSLT. She will follow-up here in 3 months. Primary osteoarthritis of left hip 04/04/2020 04/23/2020 Overview (04/04/2020): Added automatically from request for surgery [id number] Primary osteoarthritis of right hip 11/06/2019 04/23/2020 Overview (11/06/2019): Added automatically from request for surgery [id number] Encounters Date Type Department Care Team Description 11/30/2024 5:00 PM CDT Office Visit [facility] at [address] [phone] Jay Stanley NP Facial abscess (Primary Dx) 11/29/2024 4:15 PM CDT Office Visit [facility] at [address] [phone] Jay Stanley NP Abscess of face (Primary Dx) 11/21/2024 11:00 AM CDT Office Visit [facility] [address] [place] [phone] Elise Cadet NP Type 2 diabetes mellitus with hyperglycemia, without long-term current use of insulin (HCC) (Primary Dx); Hyperlipidemia associated with type 2 diabetes mellitus (HCC) 11/16/2024 Telephone [facility] [id number] [place] [address] [address] [phone] Ewa Adams MD 10/23/2024 2:45 PM CDT Office Visit [facility] Pulmonary [address] [phone] Cammy Narvaez NP GORDO (obstructive sleep apnea) (Primary Dx); PLMD (periodic limb movement disorder) 10/23/[address] [address] Jagdeep Guerrero MD Orders Only from Last 3 Months Surgical History Surgery [...] on file Legal Sex Female 6:28 AM CREPE SOLE SCOURER Gender Identity Not on file Sexual Orientation [...] Fall Risk Assessment 11/15/2024 11/16/2023, 12/26/19 20 Hemoglobin A1C 05/21/2025 11/21/2024, 0504/2024, 05/29/2024, Additional history exists Albumin Creatinine Ratio, Urine 05/29/2025 , 11/16/2023 eGFR 05/29/2025 05/29/2024, 03/09, 12/26/2019, Additional history exists Lipid Panel 06/29/2025 06/29/2024, 05/29/2024 Foot Exam 11/21/2025 11/21/2024, 11/16/2023 Medical Devices Implanted Type Area Medicare Specialist Device Identifier Shelf Expiration Date Model / Serial / Lot [employer] [id number] [place] 52mm Sector Hip Shell Acetabular Gription Sterile Latex Free - [id number] Implanted:Qty: 1 on 12/25/2019 by Daniel Tariq MD at [facility] Right: Hip [employer] 10/05/2029 [id number] / / [id number] [employer] [id number] [place] 52mm 36mm Hip Neutral Liner Acetabular Altrx Sterile Latex Free - [id number] Implanted:Qty: 1 on 12/25/2019 by Daniel Tariq MD at [facility] Right: Hip [employer] 10/05/2024 [id number] / / [id number] [employer] [id number] Actis 105mm Collar Hip 5 High Offset Stem Femoral - [id number] Implanted:Qty: 1 on 12/25/2019 by Daniel Tariq MD at [facility] Right: Hip [employer] 09/04/2029 [id number] / / [id number] [employer] [id number] Articul/[place] 36mm Cementless Hip +1.5mm 12/14 Taper Head Femoral Latex Free - [id number] Implanted:Qty: 1 on 12/25/2019 by Daniel Tariq MD at [facility] Right: Hip [employer] 10/05/2024 [id number] / / [id number] [employer] [id number] [place] 52mm 36mm Hip Neutral Liner Acetabular Altrx Sterile Latex Free - [id number] Implanted:Qty: 1 on 04/08/2020 by Daniel Tariq MD at [facility] Left: Hip [employer] 01/05/2025 [id number] / / [id number] [employer] [id number] [place] 52mm Sector Hip Shell Acetabular Gription Sterile Latex Free - [id number] Implanted:Qty: 1 on 04/08/2020 by Daniel Tariq MD at [facility] Left: Hip [employer] 01/05/2030 [id number] / / [id number] [employer] [id number] Actis L107 Mm Collar Hip 6 High Offset Stem Femoral - [id number] Implanted:Qty: 1 on 04/08/2020 by Daniel Tariq MD at [facility] Left: Hip [employer] 02/04/2030 [id number] / / [id number] [employer] [id number] Articul/[place] 36mm Cementless Hip +1.5mm 12/14 Taper Head Femoral Latex Free - [id number] Implanted:Qty: 1 on 04/08/2020 by Daniel Tariq MD at [facility] Left: Hip [employer] 02/04/2025 [id number] / / [id number] Procedures Procedure Name Priority Date/Time Associated Diagnosis [...] without long-term current use of insulin (HCC) Hyperlipidemia associated with type 2 diabetes mellitus (HCC) ALBUMIN CREATININE RATIO, URINE Routine 05/29/2024 11:39 AM CDT Type 2 diabetes mellitus with hyperglycemia, without long-term current use of insulin (HCC) from Last 3 Months or Most Recently Relevant to Health Maintenance Results * (ABNORMAL) POCT hemoglobin A1c (11/21/2024 11:00 AM CDT) Hemoglobin A1C, POC 6.9(A) 4.0 - 5.6 % Blood 11/21/2024 11:0 0 AM CDT Elise Cadet CAR BODY DESIGNER POINT OF CARE TEST ORDERA BLES Final Result * POCT glucose (11/21/2024 10:53 AM CDT) Glucose Blood, POC 157 Normal Fasting 70 - 100, Random <200 mg/dL Blood 11/21/2024 10:5 3 AM CDT us Elise Cadet CAR BODY DESIGNER POINT OF CARE TEST ORDERA BLES Final Result * Lipid panel (06/29/2024) SCRIBED Cholesterol, Total 144 30 - 199 mg/dL [facility] SCRIBED Triglycerides 114 <=149 mg/dL [facility] SCRIBED HDL 52 >=40 mg/dL [facility] SCRIBED LDL 72 <=129 mg/dL [facility] Scribed Non-HDL Cholesterol 92 NONE mg/dL [facility] SCRIBED Total Cholesterol/HDL Ratio 0 NONE [facility] Blood 06/29/2024 Historical Provider LAB BLOOD ORDERABLES Chelsea serna Result [facility] * eGFR (05/29/2024 11:39 AM CDT) eGFR >90 >=60 mL/min/1. 73 m2 Comment: [...] 9 AM CDT 05/29/2024 4:31 PM CDT Ewa Jerome MD LAB BLOOD ORDERABLE S Final Result Performing Organization Address [facility] de Phone Number MIKE [phone] [address] [place] [address] * Albumin Creatinine Ratio, Urine (05/29/2024 11:39 AM CDT) Albumin Ur <12.0 mg/L Comment: Interpretive Data No reference range established. Current interpretive data was last revised 2018. Creatinine Ur 39.6 mg/dL MIKE ZALDIVAR Comment: Interpretive Data No reference range established. Current interpretive data was last revised 2018. Albumin Creatinine Ratio, Ur See Comment 1 - 29 MIKE Comment:Unable to calculate Urine 05/29/2024 11:3 9 AM CDT 05/29/2024 4:18 PM CDT us Ewa Jerome MD LAB URINE ORDERABLE S Final Result Performing Organization Address [facility] de Phone Number MIKE ZALDIVAR [phone] [facility] [address] [place] [address] from Last 3 Months or Most Recently Relevant to Health Maintenance Insurance [employer] MEDICARE [facility] Advance Directives For more information, please contact: [phone] * Full Code (Latest Code Status on File) Date Activated Date Inactivated Comments 04/08/2020 10:35 AM 04/08/2020 7:22 PM * Full Code Date Activated Date Inactivated Comments 12/25/2019 1:27 PM 12/26/2019 5:47 PM Care Teams Broiler Chef Or Cook Relationship Specialty Start Date End Date Ketan Lei DO PCP - General Internal Medicine 05/21/24 Daniel Tariq MD Surgeon Orthopedic Surgery 12/26/19 Sophy Steven PA Orthopedic Surgery 04/08/20
== END 2025-01-01 11:14 | disposition home or self-care (01) ==
PROVIDERS: PCP Internal Medicine; Visit Provider Nurse Practitioner
DX: E04.2 Nontoxic multinodular goiter (principal)
CPT/HCPCS: 76536

== ENCOUNTER 2025-02-07 14:10 | Outpatient (CLI) | payer OTHER, SELFPAY ==
--- NOTE | ~2025-02-07 | MM_ITS ---
EXAMINATION: MM screening [facility] BI w marcus HISTORY: Screening TECHNIQUE: Craniocaudal and mediolateral oblique 3-D tomosynthesis images were obtained and synthetic 2-D images were generated. CAD analysis was submitted and interpreted. COMPARISON: Comparison to multiple prior studies sequentially, with oldest reviewed study dated 01/16/2019. BREAST PARENCHYMAL COMPOSITION: Not dense: There are scattered areas of fibroglandular density. FINDINGS: There is no evidence of suspicious mass, calcification, or architectural distortion to suggest malignancy in either breast. There has been no suspicious interval change. IMPRESSION: 1. No mammographic evidence of malignancy. 2. Recommend routine screening mammography in one year. BI-RADS Category 1: Negative Reviewed, dictated and finalized at location I. L CNC OPERATOR
--- OUTSIDE RECORDS SUMMARY | 2025-02-07 15:25 | XMS_ITS ---
Author Organization [facility] Medical Office Building B Address [address] [place] [address] Care Team Providers Care Trolley Cleaner Name Role Phone Daniel Tariq MD Unavailable [phone] Sophy Steven Unavailable [phone] Ketan Lei DO Primary Care Provider [phone] Active Problems Problem Noted Date Diagnosed Date Acute deep vein thrombosis (DVT) 01/16/2025 CPAP (continuous positive airway pressure) depen dence 01/16/2025 Depression 01/16/2025 Gastro-esophageal reflux disease without esophag itis 01/16/2025 Lumbar post-laminectomy syndrome 01/16/2025 Type 2 diabetes mellitus 01/16/2025 Papillary thyroid carcinoma 01/15/2025 Assessment & Plan (01/31/2025 1:23 PM LEGAL EXAMINER): Get ionized calcium level today Referral to Radiation Oncology May remove skin glue in one more week Assessment & Plan (01/15/2025 10:51 AM LEGAL EXAMINER): Left Completion Thyroidectomy with Nerve Monitoring, 23 hour Obervation Anesthesia, bleeding, infection, injury to major and minor arteries, nerves and veins, scar formation, injury to calcium regulating glands, injury to recurrent laryngeal nerve and resulting hoarseness, benign versus malignant pathology and need for further treatment. Type 2 diabetes mellitus wit h hyperglycemia, [...] DM eye exam October 2024; appt 11/22/24 [facility] in [place]. Letter sent to get copy of reports. [...] Atorvastatin 10mg. Last lipid panel: 06/29/24 LDL=72, HX=770. Assessment & Plan (11/16/2023 12:59 PM CDT): [...] 11/16/2023 Assessment & Plan (01/10/2024 2:28 PM LEGAL EXAMINER): Nasal saline spray (Simply saline, Little Remedies, [place], [place]) 2 second sprays or 2 squeezes into each nostril while looking down over the sink, do not need to sniff in. Continue Nasacort at 1 spray into each nostril for one month and then try to stop and just continue the nasal saline 1-2 times daily Assessment & Plan (11/16/2023 3:22 PM CDT): Nasal saline spray (Simply saline, Little Remedies, [place], [place]) 2 second sprays or 2 squeezes into [...] water pressure while sleeping. Her DME is [employer]. I have sent an order over for the patient to see different types of mask. Assessment & Plan (08/12/2023 12:18 PM CDT): Patient continue to wear her CPAP at 8 cm water pressure while sleeping. Her DME is [employer]. Assessment & Plan (08/13/2022 2:01 PM CDT): [...] following right hip joint replacement surgery 01/29/2020 Current Treatment and Therapy Plans No current plan information found. Past Treatment and Therapy Plans No past plan information found. Lifetime Dose Tracking * Chemical Lifetime Dose Automatic Entry Manual Entr y Fluoro Time 0.36 minutes 0.36 minutes 0 minutes Air kerma at the reference point (Ka,r) 2.75 mGy 2 .75 mGy 0 mGy Resolved Problems Problem Noted Date Diagnosed Date Resolved Date Primary insomnia 06/16/2022 08/12/2023 Assessment & Plan (08/13/2022 2:02 PM CDT): Her insomnia is improving with CPAP therapy. Assessment & Plan (06/16/2022 2:24 PM CDT): I did recommend cognitive behavioral therapy and I have given her the 2 brochures that are published by the [place] [employer]. I also discussed sleep restriction therapy. Snoring 03/17/2022 06/16/2022 Assessment & Plan (03/17/2022 3:34 PM LEGAL EXAMINER): The patient presents with snoring, witnessed apneas and daytime fatigue. She also has difficulty with insomnia at times. I have recommended proceeding with a nocturnal polysomnogram with a split night protocol if necessary and no MSLT. She will follow-up here in 3 months. Primary osteoarthritis of left hip 04/04/2020 04/23/2020 Overview (04/04/2020): Added automatically from request for surgery [id number] Primary osteoarthritis of right hip 11/06/2019 04/23/2020 Overview (11/06/2019): Added automatically from request for surgery [id number]
--- OUTSIDE RECORDS SUMMARY | 2025-02-07 15:25 | XMS_ITS | Clinical Summary ---
Author Organization [facility] Building [address] Address [address] [place] [address] Care Team Providers Care Design Maintenance Engineer Name Role Phone Daniel Tariq MD Unavailable [phone] Sophy Steven Unavailable Ketan Lei DO Primary Care Provider [phone] Allergies Active Allergy Reactions Criticality Noted Date Comments Mercury Rash Medium 12/19/2019 Mometasone Headache Low 10/31/2019 Medications citalopram (CeleXA) 20 mg tablet Take 1 tablet (20 mg total) by mouth daily 0 Active omeprazole (PriLOSEC) 20 mg capsule Take 1 capsule (20 mg total) by mouth daily 0 Active multivitamin capsule Take 1 capsule by mouth daily Active cholecalcifero l (VITAMIN D-3) 1,000 unit capsule Take 1 capsule (1,000 Units total) by mouth daily 0 Active potassium gluconate 600 mg (99 mg) tablet Take 1 each by mouth daily 650 mg Active cycloSPORINE (RESTASIS) 0.05 % ophthalmic emulsion Administer 1 drop into both eyes every 12 (twelve) hours 5 Active VITAMIN B COMPLEX Take 1 each by mouth daily 5 Active metFORMIN (GLUCOPHAGE) 500 mg tabletIndicati ons:Type 2 diabetes mellitus with hyperglycemia, without long-term current use of insulin (HCC) Take 1 tablet (500 mg total) by mouth 2 (two) times a day with meals 180 tablet 3 5 11/22/19 26 Active atorvastatin (LIPITOR) 10 mg tabletIndicati ons:Hyperlipid emia associated with type 2 diabetes mellitus (HCC) Take 1 tablet (10 mg total) by mouth daily 90 tablet 3 5 Active magnesium gluconate (MAGONATE) 500 mg (27 mg elemental) tabletIndicati ons:hypomagnes emia Take 1 tablet (500 mg total) by mouth daily Active calcium carbonate (OS-MELITA) 1,250 mg (500 mg elemental) tablet Take 2 tablets (2,500 mg total) by mouth 3 (three) times a day 180 tablet 5 02/24/20 Active fluorometholon e (FML) 0.1 % ophthalmic suspension INSTILL 1 DROP INTO BOTH EYES 3 TIMES DAILY 5 01/17/20 Discontinu ed(Therapy completed) Active Problems Problem Noted Date Diagnosed Date Acute deep vein thrombosis (DVT) 01/16/2025 CPAP (continuous positive airway pressure) depen dence 01/16/2025 Depression 01/16/2025 Gastro-esophageal reflux disease without esophag itis 01/16/2025 Lumbar post-laminectomy syndrome 01/16/2025 Type 2 diabetes mellitus 01/16/2025 Papillary thyroid carcinoma 01/15/2025 Assessment & Plan (01/31/2025 1:23 PM OFFSHORE WIND TURBINE TECHNICIAN): Get ionized calcium level today Referral to Radiation Oncology May remove skin glue in one more week Assessment & Plan (01/15/2025 10:51 AM OFFSHORE WIND TURBINE TECHNICIAN): Left Completion Thyroidectomy with Nerve Monitoring, 23 [...] DM eye exam October 2024; appt 11/22/24 [facility] in [place]. Letter sent to get copy of reports. [...] Atorvastatin 10mg. Last lipid panel: 06/29/24 LDL=72, TP=536. Assessment & Plan (11/16/2023 12:59 PM CDT): [...] 11/16/2023 Assessment & Plan (01/10/2024 2:28 PM OFFSHORE WIND TURBINE TECHNICIAN): Nasal saline spray (Simply saline, Little Remedies, [place], [place]) 2 second sprays or 2 squeezes into each nostril while looking down over the sink, do not need to sniff in. Continue Nasacort at 1 spray into each nostril for one month and then try to stop and just continue the nasal saline 1-2 times daily Assessment & Plan (11/16/2023 3:22 PM CDT): Nasal saline spray (Simply saline, Little Remedies, [place], [place]) 2 second sprays or 2 squeezes into [...] water pressure while sleeping. Her DME is [employer]. Assessment & Plan (08/13/2022 2:01 PM CDT): The patient continues to benefit from CPAP at 10 cm water pressure. Her DME supplier is [employer]. She will follow-up with me in 1 [...] 06/16/2022 Assessment & Plan (03/17/2022 3:34 PM OFFSHORE WIND TURBINE TECHNICIAN): The patient presents with snoring, witnessed apneas and daytime fatigue. She also has difficulty with insomnia at times. I have recommended proceeding with a nocturnal polysomnogram with a split night protocol if necessary and no MSLT. She will follow-up here in 3 months. Primary osteoarthritis of left hip 04/04/2020 04/23/2020 Overview (04/04/2020): Added automatically from request for surgery [id number] Primary osteoarthritis of right hip 11/06/2019 04/23/2020 Overview (11/06/2019): Added automatically from request for surgery [id number] Encounters Date Type Department Care Team Description 01/31/2025 1:40 PM OFFSHORE WIND TURBINE TECHNICIAN Lab [address] [phone] 01/31/2025 1:15 PM OFFSHORE WIND TURBINE TECHNICIAN Office Visit [facility] - [address] [address] Sheridan Hanna, DO Papillary thyroid carcinoma (HCC) (Primary Dx) 01/31/2025 Results Follow-Up [facility] - [address] [place] [address] Sheridan Hanna, DO Calcium, ionized, whole blood 01/28/2025 Results Follow-Up [facility] - [address], [place] [address] Sheridan Hanna, DO Calcium, ionized, whole blood 01/26/2025 12:15 PM OFFSHORE WIND TURBINE TECHNICIAN Lab [address] [address] Papillary thyroid carcinoma (HCC) 01/25/2025 Orders Only [facility] [address] [place] [address] Sheridan Hanna, Papillary thyroid carcinoma (HCC) (Primary Dx) 01/23/2025 12:33 PM OFFSHORE WIND TURBINE TECHNICIAN Anesthesia Event [facility] Operating Room [address] [place] [address] Sergio Hartmann MD McDowell, Natalie Hogue MD 01/23/2025 11:00 AM OFFSHORE WIND TURBINE TECHNICIAN - 01/23/2025 2:00 PM OFFSHORE WIND TURBINE TECHNICIAN Surgery [facility] Operating Room [address] [place] [address] Sheridan Hanna, DO Left Completion Thyroidectomy with Nerve Monitoring 01/23/2025 9:23 AM OFFSHORE WIND TURBINE TECHNICIAN - 01/24/2025 4:55 PM OFFSHORE WIND TURBINE TECHNICIAN Hospital Encounter [facility] [address] [place] [address] Sheridan Hanna, Papillary thyroid carcinoma (HCC) Discharge Disposition: Discharge to home or self care 01/15/2025 10:30 AM OFFSHORE WIND TURBINE TECHNICIAN Office Visit [facility] - [facility] [address] [place] [phone] Sheridan Hanna, Papillary thyroid carcinoma (HCC) (Primary Dx) 01/08/2025 11:41 AM OFFSHORE WIND TURBINE TECHNICIAN - 01/08/2025 11:59 PM OFFSHORE WIND TURBINE TECHNICIAN Hospital Encounter [facility] [address] [place] [address] Left thyroid nodule Discharge Disposition: Discharge to home or self care 01/08/2025 11:05 AM OFFSHORE WIND TURBINE TECHNICIAN Lab [facility] Lab [address] [place] [address] Left thyroid nodule 01/01/2025 11:30 AM CDT - 01/01/2025 11:59 PM CDT Hospital Encounter [facility] [employer] [address] [place] [address] Discharge Disposition: Discharge to home or self care 11/30/2024 5:00 PM CDT Office Visit [facility] at [address] [phone] Jay Stanley NP Facial abscess (Primary Dx) 11/29/2024 4:15 PM CDT Office Visit [facility] at [address] [phone] Jay Stanley NP Abscess of face (Primary Dx) 11/21/2024 11:00 AM CDT Office Visit [facility] Endocr[facility]ology [address] [place] [phone] Elise Cadet, BETHANY Type 2 diabetes mellitus with hyperglycemia, without long-term current use of insulin (HCC) (Primary Dx); Hyperlipidemia associated with type 2 diabetes mellitus (HCC) 11/16/2024 [facility]phone [facility] [address] [address] Ewa Adams MD from Last 3 Months Immunizations Immunization Administration Dates Next Due Influenza, Unspecified 12/06/2024 Surgical History Surgery Date Site/Laterality Comments HYSTERECTOMY APPENDECTOMY NOSE SURGERY LUMBAR FUSION 03/08/2017 - 03/07/2018 THYROIDECTOMY, PARTIAL CHOLECYSTECTOMY HIP ARTHROPLASTY Right JOINT REPLACEMENT Left Hip arthroplasty TUBAL LIGATION 1977 BLADDER SURGERY 2002 CATARACT EXTRACTION 2008 & 2013 Bilateral TONSILLECTOMY/ADENOIDECTOMY THYROIDECTOMY 01/23/2025 Neck/Left Procedure: Left Completion Thyroidectomy with Nerve Monitoring; Surgeon: Sheridan Hanna DO; Location: [facility] OPERATING ROOM; Service: Otolaryngology; Laterality: Left; Left Completion Thyroidectomy with Nerve Monitoring, 23 hour [place] Medical History Medical History Date Comments Gastric reflux GERD (gastroesophageal reflux disease) GORDO (obstructive sleep apnea) 06/16/2022 Cataract 2008 & 2013 Kidney stone 2004 Arthritis 2000 Hyperlipidemia Type 2 diabetes mellitus DVT (deep venous thrombosis) lef t leg Papillary thyroid carcinoma (HCC) Family History Medical History Relation Name Comments [...] points, staff should administer the PHQ-9) 0 01/23/2025 AUDIT-C Answer Date Recorded Q1: How often do you have a drink containing alc ohol? Monthly or less 01/23/2025 Q2: How many drinks containi ng alcohol do you have on a typical day when you are drinking? 1 or 2 01/23/2025 Q3: How often do you have si x or more drinks on one occasion? Never 01/23/2025 Personal Safety Answer Date Recorded Have you ever been in or are you currently in a harmful physical or emotional relationship or is someone making you feel afraid or unsafe? Denies 01/23/2025 Comments No Sex and Gender Information Value Date Recorded Sex Assigned at Not on file Legal Sex Female 6:28 AM OFFSHORE WIND TURBINE TECHNICIAN Gender Identity Not on file Sexual Orientation Not on file Last Filed Vital Signs Vital Sign Reading Time Taken Comments Blood Pressure 127/58 01/24/2025 3:17 PM OFFSHORE WIND TURBINE TECHNICIAN Pulse 66 01/24/2025 3:17 PM OFFSHORE WIND TURBINE TECHNICIAN Temperature 36.8 C (98.2 F) 01/24/2025 3:17 PM OFFSHORE WIND TURBINE TECHNICIAN Respiratory Rate 18 01/24/2025 3:17 PM OFFSHORE WIND TURBINE TECHNICIAN Oxygen Saturation 93% 01/24/2025 3:17 PM OFFSHORE WIND TURBINE TECHNICIAN Inhaled Oxygen Concentration - - Weight 84.7 kg (186 lb 11.7 oz) 01/23/2025 1:00 PM OFFSHORE WIND TURBINE TECHNICIAN Height 162.6 cm (5' 4) 01/23/2025 1:00 PM OFFSHORE WIND TURBINE TECHNICIAN Body Mass Index 32.05 01/23/2025 1:00 PM OFFSHORE WIND TURBINE TECHNICIAN Plan of Treatment Health Maintenance Due Date [...] 2024-2 6 season) 2024 02/02/2021, 06/21/2020, 05/24/2020 Hemoglobin A1C 05/21/2025 11/21/2024, 05/1 04/2024, 05/29/2024, Additional history exists Albumin Creatinine Ratio, Urine 05/29/2025 , 11/16/2023 eGFR 05/29/2025 05/29/2024, 03/09, 12/26/2019, Additional history exists Lipid Panel 06/29/2025 06/29/2024, 05/29/2024 Foot Exam 11/21/2025 11/21/2024, 11/16/2023 Depression Screening 01/16/2026 01/16/2025, 11/16/19 24 Fall Risk Assessment 01/24/2026 01/24/2025, 11/16/19 24 Influenza Vaccine Completed 12/06/2024, , 02/05/2014 Medical Devices Implanted Type Area Old Coin Dealer Device Identifier Shelf Expiration Date Model / Serial / Lot [employer] [id number] [place] 52mm Sector Hip Shell Acetabular Gription Sterile Latex Free - [id number] Implanted:Qty: 1 on 12/25/2019 by Daniel Tariq MD at [facility] Right: Hip [employer] 10/05/2029 [id number] / / [id number] [employer] [id number] [place] 52mm 36mm Hip Neutral Liner Acetabular Altrx Sterile Latex Free - [id number] Implanted:Qty: 1 on 12/25/2019 by Daniel Tariq MD at [facility] Right: Hip [employer] 10/05/2024 [id number] / / [id number] [employer] [id number] Actis 105mm Collar Hip 5 High Offset Stem Femoral - [id number] Implanted:Qty: 1 on 12/25/2019 by Daniel Tariq MD at [facility] Right: Hip [employer] 09/04/2029 [id number] / / [id number] [employer] [id number] Articul/[place] 36mm Cementless Hip +1.5mm 12/14 Taper Head Femoral Latex Free - [id number] Implanted:Qty: 1 on 12/25/2019 by Daniel Tariq MD at [facility] Right: Hip [employer] 10/05/2024 [id number] / / [id number] [employer] [id number] [place] 52mm 36mm Hip Neutral Liner Acetabular Altrx Sterile Latex Free - [id number] Implanted:Qty: 1 on 04/08/2020 by Daniel Tariq MD at [facility] Left: Hip [employer] 01/05/2025 [id number] / / [id number] [employer] [id number] [place] 52mm Sector Hip Shell Acetabular Gription Sterile Latex Free - [id number] Implanted:Qty: 1 on 04/08/2020 by Daniel Tariq MD at [facility] Left: Hip [employer] 01/05/2030 [id number] / / [id number] [employer] [id number] Actis L107 Mm Collar Hip 6 High Offset Stem Femoral - [id number] Implanted:Qty: 1 on 04/08/2020 by Daniel Tariq MD at [facility] Left: Hip [employer] 02/04/2030 [id number] / / [id number] [employer] [id number] Articul/[place] 36mm Cementless Hip +1.5mm 12/14 Taper Head Femoral Latex Free - [id number] Implanted:Qty: 1 on 04/08/2020 by Daniel Tariq MD at [facility] Left: Hip [employer] 02/04/2025 [id number] / / [id number] Procedures Procedure Name Priority Date/Time Associated Diagnosis Comments CALCIUM,IONIZED, WHOLE BLOOD Routine 01/31/2025 1:43 PM OFFSHORE WIND TURBINE TECHNICIAN CALCIUM,IONIZED, WHOLE BLOOD Routine 01/26/2025 12:25 PM OFFSHORE WIND TURBINE TECHNICIAN CALCIUM,IONIZED, WHOLE BLOOD Timed 01/24/2025 1:44 PM OFFSHORE WIND TURBINE TECHNICIAN CALCIUM,IONIZED, WHOLE BLOOD Timed 01/24/2025 6:46 AM OFFSHORE WIND TURBINE TECHNICIAN CALCIUM,IONIZED, WHOLE BLOOD Timed 01/23/2025 10:21 PM OFFSHORE WIND TURBINE TECHNICIAN CALCIUM,IONIZED, WHOLE BLOOD Timed 01/23/2025 2:47 PM OFFSHORE WIND TURBINE TECHNICIAN POCT GLUCOSE DEVICE Routine 01/23/2025 2 :32 PM OFFSHORE WIND TURBINE TECHNICIAN NE AN ELECTIVE ENDOTRACHEAL AIRWAY Routine 01/23/2025 12:51 PM OFFSHORE WIND TURBINE TECHNICIAN THYROIDECTOMY. 01/23/2025 12:18 PM OFFSHORE WIND TURBINE TECHNICIAN Papillary thyroid carcinoma (HCC) Special Needs Nerve monitoring & 23 hour observation ECG 12-LEAD STAT 01/23/2025 10:03 AM OFFSHORE WIND TURBINE TECHNICIAN POTASSIUM, WHOLE BLOOD STAT 01/23/2025 9:47 AM OFFSHORE WIND TURBINE TECHNICIAN POCT GLUCOSE DEVICE Routine 01/23/2025 9 :46 AM OFFSHORE WIND TURBINE TECHNICIAN SURGICAL PATHOLOGY Routine 01/23/2025 9: 07 AM OFFSHORE WIND TURBINE TECHNICIAN Papillary thyroid carcinoma (HCC) US GUIDED THYROID FINE NEEDLE ASPIRATION 1ST LESION Schedule Routine, Read Routine (OP Routine) 01/08/2025 12:35 PM OFFSHORE WIND TURBINE TECHNICIAN Left thyroid nodule CYTOLOGY Routine 01/08/2025 11:45 AM OFFSHORE WIND TURBINE TECHNICIAN Left thyroid nodule CBC WITHOUT DIFFERENTIAL Routine 01/08/2025 10:39 AM OFFSHORE WIND TURBINE TECHNICIAN Left thyroid nodule PROTIME-INR Routine 01/08/2025 10:39 AM OFFSHORE WIND TURBINE TECHNICIAN Left thyroid nodule APTT Routine 01/08/2025 10:39 AM OFFSHORE WIND TURBINE TECHNICIAN Left thyroid nodule US TRANSFER OF OUTSIDE FILMS Routine 01/01/2025 11:30 AM CDT POCT HEMOGLOBIN A1C Routine 11/21/2024 1 1:00 [...] Recently Relevant to Health Maintenance Results * Calcium, ionized, whole blood (01/31/2025 1:43 PM OFFSHORE WIND TURBINE TECHNICIAN) Ca, ionized, bld 5.01 4.50 - 5.10 mg/dL Blood 01/31/2025 1:43 PM OFFSHORE WIND TURBINE TECHNICIAN 01/31/2025 1:46 PM OFFSHORE WIND TURBINE TECHNICIAN Sheridan Hanna DO LAB BLOOD ORDERABLES Final R esult [facility]KE [facility]IRANDA ([place]) [address] [place] [address] * Calcium, ionized, whole blood (01/26/2025 12:25 PM OFFSHORE WIND TURBINE TECHNICIAN) Ca, ionized, bld 4.81 4.50 - 5.10 mg/dL Blood 01/26/2025 12:2 5 PM OFFSHORE WIND TURBINE TECHNICIAN 01/26/2025 12:39 PM OFFSHORE WIND TURBINE TECHNICIAN Sheridan Hanna DO LAB BLOOD ORDERABLES Final R esult Performing Organization Address City/[facility]/ZIP Co de Phone Number MIKE MIRANDA ([place]) [address] [place] [address] * Calcium, ionized, whole blood (01/24/2025 1:44 PM OFFSHORE WIND TURBINE TECHNICIAN) Ca, ionized, bld 4.75 4.50 - 5.10 mg/dL Blood 01/24/2025 1:44 PM OFFSHORE WIND TURBINE TECHNICIAN 01/24/2025 2:00 PM OFFSHORE WIND TURBINE TECHNICIAN Sheridan Hanna DO LAB BLOOD ORDERABLES Final R esult [facility]KE MIRANDA ([place]) [address] [facility] [place] [address] * Calcium, ionized, whole blood (01/24/2025 6:46 AM OFFSHORE WIND TURBINE TECHNICIAN) Pathologist [facility] Ca, ionized, bld 4.75 4.50 - 5.10 mg/dL Blood 01/24/2025 6:46 AM OFFSHORE WIND TURBINE TECHNICIAN 01/24/2025 6:49 AM OFFSHORE WIND TURBINE TECHNICIAN Sheridan Hanna DO LAB BLOOD ORDERABLES Final R esult [facility]KE MIRANDA ([place]) [address] [facility] [place] [address] * (ABNORMAL) Calcium, ionized, whole blood (01/23/2025 10:21 PM OFFSHORE WIND TURBINE TECHNICIAN) [facility] Ca, ionized, bld 4.48(L) 4.50 - 5.10 mg/dL Blood 01/23/2025 10:2 1 PM OFFSHORE WIND TURBINE TECHNICIAN 01/23/2025 10:30 PM OFFSHORE WIND TURBINE TECHNICIAN Sheridan Hanna DO LAB BLOOD ORDERABLES Final R esult Performing Organization Address City/[facility]/ZIP Co de Phone Number MIKE MIRANDA ([place]) [address] [facility] [place] [address] * Calcium, ionized, whole blood (01/23/2025 2:47 PM OFFSHORE WIND TURBINE TECHNICIAN) [facility] Ca, ionized, bld 4.60 4.50 - 5.10 mg/dL Blood 01/23/2025 2:47 PM OFFSHORE WIND TURBINE TECHNICIAN 01/23/2025 2:49 PM OFFSHORE WIND TURBINE TECHNICIAN Sheridan Hanna DO LAB BLOOD ORDERABLES Final R esult Performing Organization Address City/[facility]/ZIP Co de Phone Number MIKE MIRANDA ([place]) [address] [facility] [place] [address] * POCT glucose (01/23/2025 2:32 PM OFFSHORE WIND TURBINE TECHNICIAN) Glucose, POC 113 70 - 199 mg/dL Blood 01/23/2025 2:32 PM OFFSHORE WIND TURBINE TECHNICIAN 01/23/2025 2:32 PM OFFSHORE WIND TURBINE TECHNICIAN us Sheridan Hanna DO LAB POCT ORDERABLES - DEVICE Final Result [facility] [place] [address] [address] [facility] [place] [address] * NE AN ELECTIVE ENDOTRACHEAL AIRWAY (01/23/2025 12:51 PM OFFSHORE WIND TURBINE TECHNICIAN) Narrative Lindsay Whiteside CRNA - 01/23/2025 12:51 PM OFFSHORE WIND TURBINE TECHNICIAN Lindsay Whiteside CRNA 01/23/2025 12:54 PM Airway Patient location: OR Urgency: elective Date/time: 01/23/2025 12:42 PM Indications for airway management: anesthesia Difficult airway: no Staff: Placed by: RESEARCH HOME ECONOMIST: Lindsay Whiteside CRNA Emergent airway documentation: Risks and benefits discussed: yes Consent obtained: yes Consent given by: patient Airway prep: Preoxygenated: yes Mask difficulty assessment: 1 - vent by mask Spontaneous ventilation during airway: absent Sedation level during airway: GA Final airway details: Final airway type: endotracheal airway Tube type: NIM tube ETT size: 7.0 mm Cuffed: yes Technique used for successful ETT placement: video laryngoscopy Insertion site: oral Video blade type: Llamas Blade size: 3 Cormack-Lehane (video): grade I - full view of glottis Cuff volume: 6 mL Cuff inflated with: air Placement verified by: auscultation and CO2 detection Airway secured with: silk tape Number of attempts: 1 Additional comments: Intubation by SRNA. Dr. Cyndi Gibson at bedside to visualize satisfactory placement of the NIM tube. us Sergio Hartmann MD ANESTHESIA ORDERABLES Final Result * ECG 12 lead (01/23/2025 10:03 AM OFFSHORE WIND TURBINE TECHNICIAN) 01/23/2025 10:0 3 AM OFFSHORE WIND TURBINE TECHNICIAN Narrative [facility] - 01/24/2025 1:19 AM OFFSHORE WIND TURBINE TECHNICIAN Vent Rate: 66 bpm RR Interval: 904 msec NE Interval: 154 msec QRS Duration: 81 msec QT Interval: 409 msec QTC Interval: 422 msec P-R-T Sumner: 52 - 4 - 48 degrees IMPRESSION: SINUS RHYTHM NONSPECIFIC T-WAVE ABNORMALITY BORDERLINE ECG Electronically Signed By: Matt Palomares MD Sergio Hartmann MD ECG ORDERABLES Final Result [facility] * Potassium, whole blood (01/23/2025 9:47 AM OFFSHORE WIND TURBINE TECHNICIAN) Potassium, bld 3.8 3.3 - 4.9 mmol/L Comment: Interpretive Data This method is not able to assess for hemolysis, which may falsely increase potassium concentrations. If further testing is needed to evaluate this result, consider in-laboratory plasma potassium. Current Interpretive Data was last revised on 2021. Blood 01/23/2025 9:47 AM OFFSHORE WIND TURBINE TECHNICIAN 01/23/2025 9:55 AM OFFSHORE WIND TURBINE TECHNICIAN Sergio Hartmann MD LAB BLOOD ORDERABLES F inal Result Performing Organization Address City/[facility]/ZIP Co de Phone Number MIKE MIRANDA ([place]) [address] [facility] [place] [address] * POCT glucose (01/23/2025 9:46 AM OFFSHORE WIND TURBINE TECHNICIAN) Glucose, POC 122 70 - 199 mg/dL Blood 01/23/2025 9:46 AM OFFSHORE WIND TURBINE TECHNICIAN 01/23/2025 9:46 AM OFFSHORE WIND TURBINE TECHNICIAN us Sheridan Hanna DO LAB POCT ORDERABLES - DEVICE Final Result Performing Organization Address City/[facility]/ZIP Co de Phone Number MIKE MIRANDA ([place]) [address] [facility] [place] [address] * Surgical pathology (01/23/2025 9:07 AM OFFSHORE WIND TURBINE TECHNICIAN) Tissue (Thyroid) 01/23/2025 1:21 PM OFFSHORE WIND TURBINE TECHNICIAN Narrative PATHOLOGY RUBEN ([place]) - 01/30/2025 4:39 PM OFFSHORE WIND TURBINE TECHNICIAN EPIC results best viewed via link to PDF [facility] Department of Pathology [address] [place] [id number] Note to Patients: This report may contain a detailed description of human tissue sent by a health care provider to the laboratory for pathologic evaluation. The content of this report is essential for diagnosis and may provide important critical findings. This information may be unfamiliar to patients to review without a medical professional present. It is advised that the patient review this report in the presence of a health care provider who can answer questions and explain the details. Final Report Patient Name: SHERIDAN KING Address: [address] [place] [address]- Gender: F : 1950 (Age: 74) Service: Surgery Location: [facility] Hospital #: [id number] Patient Type: [facility] OP in bed Taken: 01/23/2025 Received: 01/24/2025 Accessioned: 01/24/2025 Reported: 01/30/2025 Physician(s):SHERIDAN HANNA D.O. Diagnosis: A. Left thyroid gland, left completion thyroidectomy- Papillary thyroid carcinoma, 1 cm Negative surgical margins See microscopic description synoptic report Synoptic Diagnosis: THYROID GLAND SPECIMEN Procedure: Left lobectomy TUMOR Tumor Focality: Unifocal Tumor Characteristics Tumor Site: Left lobe Tumor Size: Greatest Dimension (Centimeters) - 1 cm Histologic Tumor Types and Subtypes: Papillary carcinoma, classic subtype Tumor Proliferative Activity Mitotic Rate: Less than 3 mitoses per 2mm2 Tumor Necrosis: Not identified Angioinvasion (vascular invasion): Not identified Lymphatic Invasion: Not identified Extrathyroidal Extension: Not identified Margin Status: All margins negative for carcinoma REGIONAL LYMPH NODES Regional Lymph Node Status: Not applicable (no regional lymph nodes submitted or found) pTNM CLASSIFICATION (AJCC 8th Edition) Reporting of pT, pN, and (when applicable) pM categories is based on information available to the pathologist at the time the report is issued. As per the AJCC (Chapter 1, 8th Ed.) it is the managing physician's responsibility to establish the final pathologic stage based upon all pertinent information, including but potentially not limited to this pathology report. pT Category: pT1a pN Category: pN not assigned (no nodes submitted or found) CAP VERSION: Thyroid 4.4.0.0 Nathalia Gray M.D. Report Electronically Reviewed and Signed Out By Nathalia Gray M.D. 01/30/2025 16:39:01 Specimen(s) Received: A: Left thyroid Microscopic Description: The patient's clinical history is reviewed. Note is made of prior right thyroidectomy for an unknown reason. Sections demonstrate a papillary thyroid carcinoma confirmed with CK19 and HBME- 1 IHC stains with appropriate controls also reviewed performed on A8 and A9. The tumor somewhat approaches but is not present at the inked cauterized anterior and posterior margins. LVI is not seen. Background thyroid parenchyma demonstrates benign multinodular thyroid tissue. Dr. Roberts has reviewed this case and concurs with the interpretation. Clinical History: Papillary thyroid carcinoma. Left completion thyroidectomy wtih nerve monitoring. Gross Description: The specimen is submitted in a single formalin filled container labeled SHERIDAN KING and left thyroid. It is an unoriented , multinodular hemithyroidectomy, 6.2 x 3.4 x 1.7 cm, 13 g. The presumed anterior surface is inked blue. The presumed posterior surface is inked black. The specimen is serially sectioned to reveal a multinodular cut surface. The majority of the nodules have a colloid appearance. There is a firm circumscribed josé-white nodule, 1.5 x 1.1 x 1.0 cm, grossly abutting the anterior posterior aspects. The specimen is entirely submitted in a sequential fashion in 12 cassettes with the firm white nodule in A 7-A9. Ramona Silverio/Nathalia Gray M.D. REPORT IMAGES AND SCANNED DOCUMENTS, IF INCLUDED, ONLY VIEWABLE IN PDF VERSION OF REPORT The performance characteristics of some immunohistochemical stains, fluorescence in-situ hybridization tests and immunophenotyping by flow cytometry cited in this report (if any) were determined by the Surgical Pathology Department at [facility] as part of an ongoing software quality assurance specialist program and in compliance with federally mandated regulations drawn from the Clinical Laboratory Improvement Act of 1988 (CLIA '88). Some of these tests rely on the use of analyte specific reagents and are subject to specific labeling requirements by the US Food and Drug Administration. Such diagnostic tests may only be performed in a facility that is certified by the Department of Health and Human Services as a high proctor hospital laboratory under CLIA '88. The FDA has determined that such clearance or approval is not necessary. This test is used for clinical purposes. It should not be regarded as investigational or for research. Nevertheless, federal rules concerning the medical use of analyte specific reagents require that the following disclaimer be attached to the report: This test was developed and its performance characteristics determined by the Surgical Pathology Department [facility]. It has not been cleared or approved by the U. S. Food and Drug Administration. Note for decalcified specimens: This assay has not been validated on decalcified tissues. Results should be interpreted with caution given the possibility of false negativity on decalcified specimens us Sheridan Hanna DO LAB PATHOLOGY ORDERABLES Fin al Result PATHOLOGY [facility] ([place]) [address] [place] [id number] * US Guided Thyroid Fine Needle Aspiration 1st Lesion (01/08/2025 12:35 PM OFFSHORE WIND TURBINE TECHNICIAN) Anatomical Region Laterality Modality Thyroid N/A Ultrasound, Comp uted Radiography 01/08/2025 12:4 8 PM OFFSHORE WIND TURBINE TECHNICIAN Impressions 01/08/2025 12:48 PM OFFSHORE WIND TURBINE TECHNICIAN Successful sonographic guided left mid thyroid lesion fine needle aspiration. Technique: Sonographic guided thyroid lesion fine needle aspiration. Indication: Lesion. Procedure: The alternatives to, the benefits of and the risks of the procedure were discussed with the patient and informed written consent was obtained. The patient was placed in a supine position and the skin was prepped and draped in the usual sterile fashion. Local anesthesia was achieved with 2 ml of 1% lidocaine. Under sonographic guidance, a 25 gauge needle was inserted into the lesion and 3 fine needle aspirates were obtained, one of which was specifically for Afirma testing. The patient tolerated the procedure well. There were no immediate complications. IMPRESSION: Successful sonographic guided left inferior thyroid lesion fine needle aspiration. Electronically signed by: Matt Zambrano 01/08/2025 12:48 PM OFFSHORE WIND TURBINE TECHNICIAN Technique: Sonographic guided thyroid lesion fine needle aspiration. Indication: Lesion. Procedure: The alternatives to, the benefits of and the risks of the procedure were discussed with the patient and informed written consent was obtained. The patient was placed in a supine position and the skin was prepped and draped in the usual sterile fashion. Local anesthesia was achieved with 2 ml of 1% lidocaine. Under sonographic guidance, a 25 gauge needle was inserted into the lesion and 3 fine needle aspirates were obtained, one of which was specifically for Afirma testing. The patient tolerated the procedure well. There were no immediate complications. Procedure Note Matt Duran MD - 01/08/2025 Technique: Sonographic guided thyroid lesion fine needle aspiration. Indication: Lesion. Procedure: The alternatives to, the benefits of and the risks of the procedure were discussed with the patient and informed written consent was obtained. The patient was placed in a supine position and the skin was prepped and draped in the usual sterile fashion. Local anesthesia was achieved with 2 ml of 1% lidocaine. Under sonographic guidance, a 25 gauge needle was inserted into the lesion and 3 fine needle aspirates were obtained, one of which was specifically for Afirma testing. The patient tolerated the procedure well. There were no immediate complications. IMPRESSION: Successful sonographic guided left mid thyroid lesion fine needle aspiration. Technique: Sonographic guided thyroid lesion fine needle aspiration. Indication: Lesion. Procedure: The alternatives to, the benefits of and the risks of the procedure were discussed with the patient and informed written consent was obtained. The patient was placed in a supine position and the skin was prepped and draped in the usual sterile fashion. Local anesthesia was achieved with 2 ml of 1% lidocaine. Under sonographic guidance, a 25 gauge needle was inserted into the lesion and 3 fine needle aspirates were obtained, one of which was specifically for Afirma testing. The patient tolerated the procedure well. There were no immediate complications. IMPRESSION: Successful sonographic guided left inferior thyroid lesion fine needle aspiration. Electronically signed by: Matt Duran M.D. us Liliana Ramsay NP IMG US PROCEDURES Final Re sult * Cytology (01/08/2025 11:45 AM OFFSHORE WIND TURBINE TECHNICIAN) Fluid (Thyroid Gland (Cytology)) 01/08/2025 11:45 AM OFFSHORE WIND TURBINE TECHNICIAN Narrative PATHOLOGY [facility] - 01/10/2025 12:09 PM OFFSHORE WIND TURBINE TECHNICIAN EPIC results best viewed via link to PDF [facility] [place] [address] Note to Patients: This report may contain a detailed description of human tissue sent by a health care provider to the laboratory for pathologic evaluation. The content of this report is essential for diagnosis and may provide important critical findings. This information may be unfamiliar to patients to review without a medical professional present. It is advised that the patient review this report in the presence of a health care provider who can answer questions and explain the details. CYTOPATHOLOGY REPORT FINAL Patient Name: SHERIDAN KING Gender: F : 1950 (Age: 74) Address: [address] [place] [address] Hospital #: [id number] Taken:01/08/2025 Received:01/08/2025 Reported: 01/10/2025 Patient Type: B ANCILLARY Service: UNKNOWN Location: Physician(s): MD Ketan Mortensen D.O. Angela M. Lytle, NP FINAL DIAGNOSIS A. Thyroid, left mid nodule, ultrasound-guided fine needle aspiration: - Papillary thyroid carcinoma B. Thyroid, left inferior nodule, ultrasound-guided fine needle aspiration: - Benign ctb/01/10/2025 12:09 By this signature, I attest that the above diagnosis is based upon my personal examination of the slides(and/or other material indicated in the diagnosis). Silverio Bell M.D. Report Electronically Reviewed and Signed Out By Silverio Bell M.D. 01/10/2025 12:09:47 Daniel Kemp RUST(ASCP), [facility] Gross Description A. Thyroid, left mid nodule, ultrasound guided fine needle aspiration: Received 2 alcohol fixed smear(s), 2 air-dried smear(s), and 1 container(s) of needle rinses in Cytorich red. Processed 2 Pap stained smear(s) and 2 Diff-Quik stained smear(s). 1 ThinPrep prepared from needle rinse tube. Material for Afirma was collected, and testing will be performed, if indicated. Aspirated by Clinician. ([facility]) B. Thyroid, left inferior nodule, ultrasound guided fine needle aspiration: Received 2 alcohol fixed smear(s), 2 air-dried smear(s), and 1 container(s) of needle rinses in Cytorich red. Processed 2 Pap stained smear(s) and 2 Diff-Quik stained smear(s). 1 ThinPrep prepared from needle rinse tube. Material for Afirma was collected, and testing will be performed, if indicated. Aspirated by Clinician. ([facility]) Clinical Diagnosis and History thyroid nodules Immediate Evaluation A. Thyroid, left mid nodule, ultrasound guided fine needle aspiration: Evaluation Episode 1 Overall Adequacy: Adequate Total Evaluation Episodes: 1 Preliminary Diagnosis: Worrisome for PTC B. Thyroid, left inferior nodule, ultrasound guided fine needle aspiration: Evaluation Episode 1 Overall Adequacy: Adequate Total Evaluation Episodes: 1 Preliminary Diagnosis: Kristine Cooper M.D. 01/08/2025 Microscopic slide review and interpretation for this case was performed at [facility], Department of Surgical Pathology, [address] [facility], [id number], [place] [address] CLIA # [id number] REPORT IMAGES AND SCANNED DOCUMENTS, IF INCLUDED, ONLY VIEWABLE IN PDF VERSION OF REPORT The performance characteristics of some immunohistochemical stains, in-situ hybridization and fluorescence in-situ hybridization tests and immunophenotyping by flow cytometry cited in this report (if any) were determined by the Surgical Pathology and Flow Cytometry Departments at [facility] as part of an ongoing software quality assurance specialist program and in compliance with federally mandated regulations drawn from the Clinical Laboratory Improvement Act of 1988 (CLIA '88). Some of these tests rely on the use of analyte specific reagents and are subject to specific labeling requirements by the US Food and Drug Administration. Such diagnostic tests may only be performed in a facility that is certified by the Department of Health and Human Services as a high complexity laboratory under CLIA '88. The FDA has determined that such clearance or approval is not necessary. This test is used for clinical purposes. It should not be regarded as investigational or for research. Nevertheless, federal rules concerning the medical use of analyte specific reagents require that the following disclaimer be attached to the report: This test was developed and its performance characteristics determined by the Surgical Pathology and Flow Cytometry Departments of [facility]. It has not been cleared or approved by the U. S. Food and Drug Administration. Liliana Ramsay NP LAB CYTOLOGY ORDERABLES Fi nal Result Performing Organization Address City/[facility] Co de Phone Number PATHOLOGY [facility] * (ABNORMAL) aPTT (01/08/2025 10:39 AM OFFSHORE WIND TURBINE TECHNICIAN) aPTT 21(L) 22 - 37 sec Comment: Interpretive data aPTT test has not been evaluated for monitoring heparin therapy. The anti-Xa is the preferred test. Current interpretive data was last revised on 2019. Blood Venous blood specimen / Unknown 01/08/2025 10:39 AM OFFSHORE WIND TURBINE TECHNICIAN 01/08/2025 10:53 AM OFFSHORE WIND TURBINE TECHNICIAN Liliana Ramsay NP LAB BLOOD ORDERABLES Final Result Performing Organization Address [facility] de Phone Number [place] [address] [place] [place] [address] * Protime-INR (01/08/2025 10:39 AM OFFSHORE WIND TURBINE TECHNICIAN) PT 12.90 12.00 - 14.60 sec INR 0.96 0.90 - 1.20 MIKE Comment: Interpretive data Oral anticoagulant therapeutic ranges: Venous thromboembolism prophylaxis or treatment: 2.0-3.0 CARDIOLOGY Standard range: 2.0-3.0 High-intensity range: 2.5-3.5 Refer to indication-specific guidelines for appropriate target ranges for prosthetic heart valve replacement. Current interpretive data was last revised on 2019. Blood Venous blood specimen / Unknown 01/08/2025 10:39 AM OFFSHORE WIND TURBINE TECHNICIAN 01/08/2025 10:53 AM OFFSHORE WIND TURBINE TECHNICIAN Liliana Ramsay NP LAB BLOOD ORDERABLES Final Result Performing Organization Address [facility] Co de Phone Number [address] [place] [address] * CBC without differential (01/08/2025 10:39 AM OFFSHORE WIND TURBINE TECHNICIAN) WBC 6.96 3.80 - 9.90 K/cumm Hgb 12.8 11.9 - 15.5 g/dL [facility] Hct 38.5 35.6 - 45.5 % [facility] Plt 251 150 - 400 K/cumm [facility] MPV 10.4 9.1 - 12.3 fL [facility] RBC 4.18 3.90 - 5.20 M/cumm [facility] MCV 92.1 81.3 - 96.4 fL [facility] MCH 30.6 27.1 - 33.3 pg [facility] MCHC 33.2 32.3 - 35.7 g/dL [facility] RDW CV 12.3 11.1 - 14.9 % [facility] RDW SD 41.7 35.7 - 48.1 fL [facility] NRBC abs 0.00 0.00 - 0.01 K/cumm [facility] Blood Venous blood specimen / Unknown 01/08/2025 10:39 AM OFFSHORE WIND TURBINE TECHNICIAN 01/08/2025 10:53 AM OFFSHORE WIND TURBINE TECHNICIAN us Liliana Ramsay RN CORRECTIONAL LAB BLOOD ORDERABLES Final Result MIKE AMANDA [address] [facility] [place] [address] * US Outside Reference (01/01/2025 11:30 AM CDT) Narrative CHRISTIN_VALENTÍN_[facility] - 01/05/2025 10:27 AM CDT This order has been auto-finalized and does not contain a result. us Provider Transcribed Order IMG US PROCEDURES Fin al Result RAD_VALENTÍN_[facility] * (ABNORMAL) POCT hemoglobin A1c (11/21/2024 11:00 AM CDT) Hemoglobin A1C, POC 6.9(A) 4.0 - 5.6 % Blood 11/21/2024 11:0 0 AM CDT us Elise Cadet RN CORRECTIONAL POINT OF CARE TEST ORDERA BLES Final Result * POCT glucose (11/21/2024 10:53 AM CDT) Glucose Blood, POC 157 Normal Fasting 70 - 100, Random <200 mg/dL Blood 11/21/2024 10:5 3 AM CDT us Elise Cadet RN CORRECTIONAL POINT OF CARE TEST ORDERA BLES Final [...] ORDERABLE S Final Result Performing Organization Address [facility] Co de Phone Number MIKE ZALDIVAR [address] [place] [address] * Albumin Creatinine Ratio, Urine (05/29/2024 11:39 [...] ORDERABLE S Final Result Performing Organization Address [facility] de Phone Number MIKE ZALDIVAR [address] [place] [address] from Last 3 Months or Most Recently Relevant to Health Maintenance Insurance [facility] Member Subscriber Plan / Payer (Ef fective 2024-Present) Name:Sheridan King Relation to Subscriber:Self Name:Sheridan King Payer ID:[id number] (NAIC) Type:MEDICARE RISK OTHER [facility] [address] [facility] Member Subscriber Plan / Payer (Ef fective 2024-Present) Name:Sheridan King Relation to Subscriber:Self Name:Sheridan King Payer ID:[id number] (NAIC) Type:MEDICARE RISK OTHER Address: [address] [facility] Advance Directives For more information, please contact: [phone] Documents on File Type Date Recorded Patient Reaming Machine Tender Expl anation ADVANCE DIRECTIVE 01/23/2025 9:23 AM Marleen r of Clinical Fellow--Medical ADVANCE DIRECTIVE 01/23/2025 9:21 AM Caprice manoj Will * Full Code (Latest Code Status on File) Date Activated Date Inactivated Comments 01/23/2025 3:45 PM 01/24/2025 8:55 PM * Full Code Date Activated Date Inactivated Comments 04/08/2020 10:35 AM 04/08/2020 7:22 PM * Full Code Date Activated Date Inactivated Comments 12/25/2019 1:27 PM 12/26/2019 5:47 PM Care Teams Design Maintenance Engineer Relationship Specialty Start Date End Date Ketan Lei DO [address] [place] [address] PCP - General Internal Medicine 01/15/25 Daniel Tariq MD Surgeon Orthopedic Surgery 12/26/19 Sophy Steven PA Orthopedic Surgery 04/08/20
== END 2025-02-07 14:11 | disposition home or self-care (01) ==
LOC: ANHFOHIMG 14:12
PROVIDERS: PCP Internal Medicine; Visit Provider Obstetrics & Gynecology
DX: Z12.31 Encounter for screening mammogram for malignant neoplasm of breast (principal)
CPT/HCPCS: 77063; 77067